=== PATIENT | male | born 1965 | race Caucasian/White ===

== ENCOUNTER → 2017-01-14 | Outpatient (CLI) | payer OTHER ==
[~2017-01-14] MED LIST: AMOX875T PO; BENZ100C84 PO; BUPR-267 PO; CLC100 PO; CMPS25 PR; FEXO1TAB46 PO; FEXO1TAB49 PO; LANS30CA12 PO; LEVO50TA6 PO; MONT1TAB3 PO; MULT-506 PO; ONDA8TAB6 PO; OXYC-57 PO; POTA-65 PO; TRAM-10 PO; TRIA37.5 PO; TRIATAB3 PO; WLLSR150 PO
--- NOTE | 2017-01-14 08:51 | DIAGNOSTIC IMAGING REPORT ---
CT SCAN OF THE CHEST WITHOUT IV CONTRAST CLINICAL HISTORY: Follow-up pulmonary nodule. COMPARISON STUDY: Chest CT dated 05/14/2016. PET/CT dated 06/04/2016. TECHNIQUE: CT scan of the thorax was performed from the thoracic inlet to the upper abdomen. Images are reviewed in the axial, sagittal, and coronal planes. IV contrast was not administered for this examination as per the referring clinician. CT DOSE: 1009.97 mGy.cm FINDINGS: Thyroid: Imaged portions of the thyroid gland are normal in size and attenuation. Thoracic aorta: The thoracic aorta is normal in caliber and demonstrates standard 3-vessel arch anatomy. Heart: The heart is normal in size and without pericardial effusion. Lungs and pleural spaces: Trace pleural effusions are identified. There is no airspace consolidation typical for pneumonia. The trachea and central airways are clear. Foci of linear atelectasis versus scarring are again seen at the lung bases. An irregular 12 mm nodule is seen in the right lower lobe on image #226. This has increased in size from 05/14/2016 when it measured up to 8mm. An additional 12 mm nodule in the right lower lobe seen on image #211 has also increased in size, previously measuring 7 mm. Mediastinum: There are prominent mediastinal lymph nodes. A high right peritracheal node on image #47 measures 9 mm short axis. A pretracheal node on image #114 measures 12 mm in short axis. These are unchanged from previous and low suspicion. Scarlett: Not well assessed without IV contrast. Axillae: There is no axillary lymphadenopathy. Upper abdomen: There is a small hiatal hernia. A 3.6 cm indeterminant low-attenuation lesion in the right lobe of the liver on image #279 is unchanged. A 9 mm cyst is noted in the right lobe of liver. Cholecystectomy clips are noted. A 3.5 cm left renal cyst is partially imaged. Skeletal structures: No lytic or blastic bony lesions are seen. IMPRESSION: 1. There are two 12 mm right lower lobe pulmonary nodules. Although pathologically indeterminant, both nodules have noticeably increased in size as compared to studies performed in 2016. The increase in size of these nodules is concerning for neoplasm 2. There are trace pleural effusions. No airspace consolidation is seen typical for pneumonia. 3. An indeterminant 3.6 cm hepatic lesion is unchanged. Electronically signed by: Paramjit Augustine M.D. 01/14/2017 8:50 AM Dictated Date/Time: 01/14/2017 8:35 AM
== END | disposition home or self-care (01) ==
LOC: C.CTS 08:14
PROVIDERS: ATTEND Internal Medicine Pulmonary Disease
DX: R91.8 Other nonspecific abnormal finding of lung field (principal); J90 Pleural effusion, not elsewhere classified; K76.9 Liver disease, unspecified

== ENCOUNTER 2017-01-19 09:04 | Inpatient (IN) | payer OTHER ==
[2017-01-16 10:22] LABS: BASO % 0.2 %; BASO ABS # 0.01 K/uL (0-0.2); COMPLETE YES; EOS % 0.9 %; HEMATOCRIT 47.6 % (42-52); IG% 0.2 %; LYMPH % 13.8 %; LYMPH ABS # 0.79 K/uL (1.2-3.4); MEAN CELL VOLUME 86.7 fL (80-100); MEAN CORPUSCULAR HEMOGLOBIN 31.3 pg (25-34); MEAN CORPUSCULAR HGB CONC 36.1 g/dl (32-36); MEAN PLATELET VOLUME 10.1 fL (7.4-10.4); MONO % 9.4 %; NEUT % 75.5 %; PLATELET COUNT 195 K/uL (130-400); RED BLOOD COUNT 5.49 M/uL (4.7-6.1); WHITE BLOOD COUNT 5.72 K/uL (4.8-10.8)
[2017-01-16 10:25] VITALS: BMI 36.0
[2017-01-16 10:30] LABS: BLOOD UREA NITROGEN 13 mg/dl (7-18); BUN/CREATININE RATIO 13.5 (10-20); CALCIUM 9.2 mg/dl (8.5-10.1); CARBON DIOXIDE 25 mmol/L (21-32); CHLORIDE 104 mmol/L (98-107); CREATININE 0.93 mg/dl (0.60-1.40); GLUCOSE 92 mg/dl (70-99); SODIUM 136 mmol/L (136-145)
[2017-01-19] VITALS (7 sets, daily range): BP systolic 113–137; BP diastolic 71–93; PULSE 77–107; TEMP 36.2–37; O2SAT 93–97; Ht 182.9 cm; Wt 120.0 kg
[~2017-01-19] VITALS: Ht 182.9 cm; Wt 120.0 kg
[~2017-01-19 09:04] MED LIST changes: -AMOX875T PO; -BENZ100C84 PO; -BUPR-267 PO; -CLC100 PO; -CMPS25 PR; -FEXO1TAB49 PO; +LACTATED RINGER'S 1000ML 1,000 ML IV SCH; -LANS30CA12 PO; -LEVO50TA6 PO; -MONT1TAB3 PO; -MULT-506 PO; -ONDA8TAB6 PO; -OXYC-57 PO; -POTA-65 PO; -TRAM-10 PO; -TRIA37.5 PO
[2017-01-19] MEDS ORDERED: MIDAZOLAM HCL 1 MG/ML 2ML VIAL ONE (09:57)
[2017-01-19] MEDS ORDERED: FENTANYL CITRATE INJ 50 MCG/1 ML 2 ML VIAL ONE ×2 (09:57→12:18)
--- NOTE | 2017-01-19 11:06 | History & Physical Bridge Note ---
H&P Re-Evaluation Bridge Note: I have examined the patient, reviewed the History & Physical and in the interval since the performance of the History & Physical I have noted the following changes of clinical significance: No changes noted
[2017-01-19] MEDS ORDERED: CEFAZOLIN IV 2,000 MG/60 ML D5W IV ONE (11:09)
[2017-01-19] MEDS ORDERED: NURSING VERBAL MED ORDER ONE ×2 (11:15→20:30)
[2017-01-19] MEDS ORDERED: BUPIVACAINE LIPOSOME 1/3% 266 MG/20 ML VIAL INFIL ONE (11:21)
[2017-01-19] MEDS ORDERED: SODIUM CHLORIDE 0.9% PF 50 ML VIAL ONE (11:21)
[2017-01-19] MEDS ORDERED: ROCURONIUM BROMIDE 10 MG/ML 5 ML VIAL ONE ×3 (12:17→15:24)
[2017-01-19] MEDS ORDERED: SUCCINYLCHOLINE CHLORIDE 20 MG/ML 10 ML VIAL IV ONE (12:17)
[2017-01-19] MEDS ORDERED: PHENYLEPHRINE HCL INJ 10 MG/ML VIAL ONE (12:17)
[2017-01-19] MEDS ORDERED: ONDANSETRON INJ 2 MG/ML 2 ML VIAL ONE (12:17)
[2017-01-19] MEDS ORDERED: NEOSTIGMINE METHYLSULFATE 5 MG/5 ML SYR ONE (12:17)
[2017-01-19] MEDS ORDERED: PROPOFOL IV EMULSION 10 MG/ML 20 ML VIAL IV ONE (12:17)
[2017-01-19] MEDS ORDERED: DEXAMETHASONE SOD INJ 4 MG/ML VIAL ONE (12:17)
[2017-01-19] MEDS ORDERED: LIDOCAINE HCL 2% 2 ML VIAL (20MG/ML) ONE (12:17)
[2017-01-19] MEDS ORDERED: LARYING-O-JET KIT (LTA) EXT ONE ×2 (12:17)
[2017-01-19] MEDS ORDERED: GLYCOPYRROLATE INJ 0.2 MG/ML VIAL ONE (12:17)
[2017-01-19] MEDS ORDERED: HYDROmorphone INJ 2 MG/ML SYR/VIAL ONE (13:30)
[2017-01-19] MEDS ORDERED: EpHEDrine SULFATE INJ 50 MG/ML AMP IV PRN (14:15)
[2017-01-19] MEDS ORDERED: ATROPINE SULFATE 0.1 MG/ML 5ML SYR IV PRN (14:15)
[2017-01-19] MEDS ORDERED: ONDANSETRON INJ 2 MG/ML 2 ML VIAL IV PRN ×2 (14:15→17:00)
--- NOTE | 2017-01-19 14:15 | Progress Note ---
Progress Note Date of Service Jan 19, 2017. Progress Note AIRWAY NOTE: Patient was difficult to intubate with SHRAVAN. Easy mask ventilation with oral airway. Initial attempt with MAC4 = grade 3 view. acid pump operator attempted with MIL3=Grade 2b view, but unable to pass SHRAVAN. [place] scope was used which allowed visualization of the glottis and a fiberoptic scope was placed under indirect visualization on GS screen. SHRAVAN was then placed and positioned over fiberoptic scope. 10mg of IV decadron was given after this to minimize upper airway swelling. There was minimal blood in the pharynx after these attempts. Update: Dr Lewis Robles briefed on airway difficulties when transferring care of patient in OR.
[2017-01-19] MEDS: FENTANYL CITRATE INJ 50 MCG/1 ML 2 ML VIAL IV PRN ×4 (17:17→17:32)
--- NOTE | 2017-01-19 17:33 | DIAGNOSTIC IMAGING REPORT ---
CHEST ONE VIEW PORTABLE CLINICAL HISTORY: s/p RLL postoperative evaluation COMPARISON STUDY: 06/13/2016 FINDINGS: Postoperative changes right hemithorax. Right-sided chest tube in good position. No significant postprocedural pneumothorax. Left lung is generally clear. Minimal basilar atelectatic change. IMPRESSION: No evidence pneumothorax status post right-sided chest tube placement Electronically signed by: Shivam Pinedo M.D. 01/19/2017 5:31 PM Dictated Date/Time: 01/19/2017 5:29 PM
[2017-01-19] MEDS: HYDROmorphone INJ 1 MG/ML SYR IV PRN ×3 (17:37→17:52)
--- NOTE | 2017-01-19 17:53 | Anesthesiology Progress Note ---
Anesthesia Post Op Note Date & Time Jan 19, 2017 at 17:53 Vital Signs Pain Intensity: 3 Vital Signs Past 12 Hours Date Time Temp Pulse Resp B/P Pulse Ox O2 Delivery O2 Flow Rate FiO2 01/19/17 17:40 68 14 124/65 98 Mask 10 01/19/17 17:30 79 14 123/68 99 Mask 10 01/19/17 17:20 79 17 114/75 100 Mask 10 01/19/17 17:13 36.0 66 21 114/66 100 Mask 10 01/19/17 09:40 36.9 90 20 137/93 94 Room Air Notes Mental Status: alert / awake / arousable, participated in evaluation Pt Amnestic to Procedure: Yes Nausea / Vomiting: adequately controlled Pain: adequately controlled Airway Patency, RR, SpO2: stable & adequate BP & HR: stable & adequate Hydration State: stable & adequate Anesthetic Complications: no major complications apparent
[2017-01-19] MEDS: OXYCODONE HCL IR 5 MG TAB (IMMEDIATE RELEASE) PO PRN (19:02)
[2017-01-19] MEDS ORDERED: CEFAZOLIN IV 2,000 MG in DEXTROSE 5% 50ML 100 ML IV SCH (20:30)
[2017-01-19] MEDS: D5W AND 1/2NSS 1,000 ML IV SCH (20:48)
[2017-01-19] MEDS: MoRPHine SULFATE 2 MG/ML CARP IV PRN ×2 (20:53→22:16)
[2017-01-19] MEDS: CEFAZOLIN IV 2,000 MG in DEXTROSE 5% 50ML 50 ML IV SCH (20:59)
[2017-01-19] MEDS ORDERED: LANSOPRAZOLE PO SCH (21:00)
[2017-01-19] MEDS ORDERED: METOCLOPRAMIDE HCL INJ 5 MG/ML 2 ML VIAL IV. SCH (22:00)
[2017-01-19] MEDS: BuPROPion SR 150 MG TABCR PO SCH (22:03)
[2017-01-19] MEDS: DOCUSATE SODIUM 100 MG CAP PO SCH (22:03)
[2017-01-19] MEDS: KETOROLAC TROMETHAMINE 15 MG/ML VIAL IV. SCH (22:04)
[2017-01-19] MEDS: ACETAMINOPHEN IV 1,000 MG in EMPTY BAG 0 ML IV SCH (22:05)
[2017-01-19 22:07] LABS: INR 1.1 (0.9-1.1); PROTHROMBIN TIME (PATIENT) 11.5 SECONDS (9.0-12.0)
[2017-01-19] MEDS: LANSOPRAZOLE PO SCH (22:12)
[2017-01-20] MEDS: MoRPHine SULFATE 2 MG/ML CARP IV PRN ×6 (00:40→22:40)
[2017-01-20] MEDS: D5W AND 1/2NSS 1,000 ML IV SCH (02:50)
--- NOTE | 2017-01-20 02:54 | OPERATIVE REPORT ---
DATE OF OPERATION: 01/19/2017 PREOPERATIVE DIAGNOSIS: Enlarging mass, right lower lobe. POSTOPERATIVE DIAGNOSIS: Apparent metastatic lesion. PROCEDURES: 1. Right thoracoscopy with wedge resection. 2. Thoracoscopic right lower lobectomy. 3. Mediastinal lymphadenectomy. SURGEON: Dr. Syed. TEAM LEADER/RESEARCH PSYCHOLOGIST: JASPER Sarmiento ANESTHESIA: 1. General anesthesia endotracheal intubation. 2. Intercostal block using Exparel intrathoracic needle. SPECIFICS OF PROCEDURE: Al Ferrer is a very nice 51-year-old who has never smoked cigarettes. He really does not have much in the way of medical problems. He was found to have signs and symptoms consistent with an upper respiratory infection and hypermetabolic lymph nodes several months ago. I performed an endobronchial ultrasound and these nodes were all reactive. We saw no evidence of malignancy or granulomatous disease. He has had 2 small nodules in his right lower lobe but I really was not too concerned. I asked him to come back in 6 months and to get a CT scan, and one of these nodules had enlarged. In fact it was 50% larger which was very concerning for me. The patient has no symptoms. On 01/19/2017 I took the patient to the operating room and did a wedge resection of this mass and it appears to be metastatic carcinoma. He had another mass more medially in the lower lobe which I could not palpate and as we were unsure of the diagnosis, I went ahead and did a thoracoscopic right lower lobectomy, although it did not appear to be a lung cancer. He also had very large lymph nodes which surprised me, even though it appeared to be enlarged on the CT scan. At any rate I took out a large mass in the level 2 and level 4 nodes as well as level 8, 9, 11, 12. Frozen section of these showed granulomas. The patient tolerated the procedure well and was transported back to the post-anesthesia care unit in stable condition. DESCRIPTION OF PROCEDURE: The patient brought to the operating room laid in supine position. General anesthesia induced and endotracheal intubation was performed. After appropriate lines and catheters in place, the patient was turned in the left lateral decubitus position, his right chest prepped, draped in the usual sterile fashion. After appropriate timeout had been called and the antibiotics had been given, I then made a bit posterior to the scapular tip one interspace below. I then made 2 other small thoracoscopy incisions and put #12 thoracoports in. I then put my finger in the posterior port and bringing this over I was able to palpate this mass which was more than a centimeter in depth. I then marked it with ink and then wedged this out with a generous wedge. I cut this open, and sent some for culture and it was a darkly pigmented lesion which was rather firm. Sent this off for frozen section and while waiting for this, took down the inferior pulmonary ligament and biopsied level 8 and level 9 nodes. They were hard and I sent this for frozen section to and a level 9 node had granulomas, which was a bit surprising. Freed up the inferior pulmonary ligament and went all the way up to the level 7 although did not really see much in the level 7 area. I then went down and dissected out the medial fissure and the right lower lobe and the right middle lobe. I then got around the inferior pulmonary vein after checking to make sure there was a superior pulmonary vein. Upon evaluation; however, there was a branch draining from the middle lobe to the inferior pulmonary vein. I removed my vessel loop and then I went back more distal to this and put a vessel loop around. Frozen section came back as a carcinoma. Deliberated for a few minutes because it could represent a melanoma. However, there was another nodule more medial on the CT scan which concerned me. I did not think this had grown much and if the mass appeared benign I would have simply followed this; however, given the fact that we saw no other evidence of metastatic disease, I felt that a lobectomy to control metastasis was in order, especially given the fact that we have no diagnosis. I then fired the stapler across the vein and pulling this up, I identified the bronchus. I went to dissect out the bronchus from the artery; however, this was extremely difficult. The nodes were extremely adherent to large. I ended up gently and meticulously dissecting out some large node and sending them off for frozen section they were like granulomas. I was finally able to get around the artery and fired an EndoGIA stapler. I did the same thing for the bronchus. I completed the fissure posteriorly with an EndoGIA stapler. An Endobag was used to remove it from the lobe. I had to enlarge the working channel of the 4th interspace a bit to do this. It should also be noted that I used an Endobag to remove the wedge resection that we had obtained, also. I used 266 mg of Exparel and 60 mL total saline to do the intercostal block from the 2nd to the 11th rib. We then dissected out level 11 and 12 nodes and then a huge mat of nodes at level 4, level 2 areas which came out as one. We irrigated this and found he really had no significant bleeding and no significant air leak. A 24-Haitian chest tube was placed to the anterior thoracoport, sutured in place with heavy silk suture. 0 Vicryl was used to close the muscle layers level 3 ports and then 4-0 Monocryl was used in an interrupted fashion to approximate the wound edges. He was extubated in the room and had negligible blood loss. I attest to the content of the Intraoperative Record and any orders documented therein. Any exceptions are noted below. AMELIA
[2017-01-20 04:30] VITALS: BP 133/85; PULSE 81; TEMP 36.9; O2SAT 96
[2017-01-20] MEDS: CEFAZOLIN IV 2,000 MG in DEXTROSE 5% 50ML 50 ML IV SCH (04:32)
[2017-01-20] MEDS: OXYCODONE HCL IR 5 MG TAB (IMMEDIATE RELEASE) PO PRN ×3 (04:36→20:58)
[2017-01-20] MEDS: ACETAMINOPHEN IV 1,000 MG in EMPTY BAG 0 ML IV SCH (05:42)
[2017-01-20] MEDS: LEVOTHYROXINE 50 MCG TAB PO SCH (05:42)
[2017-01-20] MEDS: KETOROLAC TROMETHAMINE 15 MG/ML VIAL IV. SCH ×3 (05:42→21:12)
[2017-01-20 07:26] VITALS: BP 123/84; PULSE 78; TEMP 36.4; O2SAT 96
[2017-01-20 07:52] LABS: COMPLETE YES; EOS % 0.1 %; HEMATOCRIT 41.6 % (42-52); IG% 0.3 %; LYMPH % 6.9 %; LYMPH ABS # 0.74 K/uL (1.2-3.4); MEAN CORPUSCULAR HEMOGLOBIN 30.5 pg (25-34); MEAN CORPUSCULAR HGB CONC 35.1 g/dl (32-36); MEAN PLATELET VOLUME 9.7 fL (7.4-10.4); MONO % 6.6 %; NEUT % 86.1 %; PLATELET COUNT 167 K/uL (130-400); RED BLOOD COUNT 4.78 M/uL (4.7-6.1); WHITE BLOOD COUNT 10.71 K/uL (4.8-10.8)
[2017-01-20 08:19] LABS: BUN/CREATININE RATIO 15.9 (10-20); CALCIUM 8.6 mg/dl (8.5-10.1); CREATININE 0.93 mg/dl (0.60-1.40); POTASSIUM 3.7 mmol/L (3.5-5.1)
[2017-01-20] MEDS: DOCUSATE SODIUM 100 MG CAP PO SCH ×2 (08:43→21:09)
[2017-01-20] MEDS: FEXOFENADINE HCL 180 MG TAB PO SCH (08:43)
[2017-01-20] MEDS: LANSOPRAZOLE PO SCH ×2 (08:44→21:00)
[2017-01-20] MEDS: BuPROPion SR 150 MG TABCR PO SCH ×2 (10:17→21:10)
[2017-01-20] MEDS: ENOXAPARIN 40 MG/0.4 ML SYR SQ SCH (10:18)
--- NOTE | 2017-01-20 10:44 | Anesthesiology Progress Note ---
Anesthesia Post Op Note Date & Time Jan 20, 2017 at 10:44 Vital Signs Pain Intensity: 6.0 Vital Signs Past 12 Hours Date Time Temp Pulse Resp B/P Pulse Ox O2 Delivery O2 Flow Rate FiO2 01/20/17 07:26 36.4 78 17 123/84 96 Room Air 01/20/17 04:30 36.9 81 16 133/85 96 Room Air 01/20/17 00:25 CPAP 01/19/17 23:05 37.0 98 16 113/71 94 Room Air Notes Mental Status: alert / awake / arousable, participated in evaluation Pt Amnestic to Procedure: Yes Nausea / Vomiting: adequately controlled Pain: adequately controlled Airway Patency, RR, SpO2: stable & adequate BP & HR: stable & adequate Hydration State: stable & adequate Anesthetic Complications: no major complications apparent
[2017-01-20] MEDS: ACETAMINOPHEN 325 MG TAB PO SCH ×3 (11:17→23:49)
[2017-01-20 11:20] VITALS: BP 143/90; PULSE 79; TEMP 36.5; O2SAT 96
--- NOTE | 2017-01-20 12:17 | SURGERY PROGRESS NOTE ---
DATE: 01/20/2017 Mr. Ferrer is sitting up eating breakfast in a chair. He is on no oxygen. He has no air leak today and very little drainage. We are going to check a chest x-ray in the morning. If it looks good, we will pull his chest tube and let him go home. The big picture here is the patient had 2 findings yesterday at surgery. One was the mass in his right lower lobe, appears to be melanoma. Also all the large lymph nodes noted appear to be from granulomatous disease. We are still waiting for final pathology. I explained quite carefully the patient and his family that he would probably be discharged prior to us having a diagnosis. We will talk about it next week in the office.
[2017-01-20 15:30] VITALS: BP 143/90; PULSE 85; TEMP 36.4; O2SAT 94
[2017-01-20 16:00] VITALS: O2SAT 94
[2017-01-20 22:33] VITALS: BP 117/79; PULSE 86; TEMP 36.9; O2SAT 92
[2017-01-21] MEDS: OXYCODONE HCL IR 5 MG TAB (IMMEDIATE RELEASE) PO PRN ×2 (02:59→09:13)
[2017-01-21] MEDS: LEVOTHYROXINE 50 MCG TAB PO SCH (05:39)
[2017-01-21] MEDS: ACETAMINOPHEN 325 MG TAB PO SCH (05:40)
[2017-01-21] MEDS: KETOROLAC TROMETHAMINE 15 MG/ML VIAL IV. SCH (05:47)
[2017-01-21] MEDS: LANSOPRAZOLE PO SCH (05:48)
[2017-01-21 07:12] VITALS: BP 136/83; PULSE 82; TEMP 36.9; O2SAT 95
--- NOTE | 2017-01-21 07:37 | DIAGNOSTIC IMAGING REPORT ---
CHEST ONE VIEW PORTABLE CLINICAL HISTORY: Postop lobectomy COMPARISON STUDY: January 19, 2017 FINDINGS: The cardiac and mediastinal contours remain stable. There are bibasilar opacities likely atelectatic. There is a right-sided chest tube the tip of which projects over the right mid mediastinum. A small right apical pneumothorax the pleural separation of 6 mm is suspected.[ IMPRESSION: 1. Small right apical pneumothorax with a pleural separation of 6 mm 2. Bibasilar opacities, likely atelectatic Electronically signed by: Andrew Dudley M.D. 01/21/2017 7:35 AM Dictated Date/Time: 01/21/2017 7:34 AM
[2017-01-21] MEDS ORDERED: CLC100 PO (08:58)
--- NOTE | 2017-01-21 09:05 | Discharge Instructions ---
Discharge Instructions Date of Service Jan 21, 2017. Admission Reason for Admission: Right Lower Lobe Lung Mass Discharge Discharge Diagnosis / Problem: Right Lower Lobe Lung Mass Discharge Goals Goal(s): Learn about illness Activity Recommendations Activity Limitations: as noted below Lifting Limitations: none 1. Do not fly or SCUBA dive until cleared to do so by Dr. Syed. 2. You may remove dressings in 3 days and shower thereafter. NO tub baths. 3. Do not drive if taking percocet. . Instructions / Follow-Up Instructions / Follow-Up 1. Office appointment with Dr. Syed in 1-2 weeks. Office will call you with date and time of appointment. You will need a chest x-ray prior to appointment. 2. You will have a follow-up appointment with Dr. Amaral of oncology. You will receive a phone call regarding this appointment. 3. You will need referrals to gastroenterology, ophthalmology, and dermatology. Dr. Syed's office will assist you in making these appointments. 4. You will need a PET scan. Dr. Syed's office will arrange this for you. Current Hospital Diet Patient's current hospital diet: Regular Diet Discharge Diet Recommended Diet: Regular Diet Procedures Procedures Performed: Right Video Assisted Thoracoscopy Lower Wedge Resection, Right Lower Lobectomy with Mediastinal Lymphadenectomy Pending Studies Studies pending at discharge: no Medical Emergencies . Who to Call and When: Medical Emergencies: If at any time you feel your situation is an emergency, please call 911 immediately. . Non-Emergent Contact Non-Emergency issues call your: Surgeon Call Non-Emergent contact if: you have a fever, your pain is not controlled, wound has increased drainage . "Provider Documentation" section prepared by Tyler Calixto. VTE Core Measure Inpt VTE Proph given/why not?: Enoxaparin (Lovenox)SQ
[2017-01-21] MEDS ORDERED: OXYC-57 PO (09:09)
--- NOTE | 2017-01-21 09:16 | DIAGNOSTIC IMAGING REPORT ---
CHEST ONE VIEW PORTABLE CLINICAL HISTORY: Chest tube removal. COMPARISON STUDY: Chest radiograph January 21, 2017 at 7:34 AM. FINDINGS: A small right apical pneumothorax has mildly increased in size since prior exam. Superior pleural separation measures 1.3 cm. The right chest tube has been removed. Lung zones are diminished. Bibasilar opacity persist. IMPRESSION: 1. Small right apical pneumothorax, mildly increased in size following chest tube removal. 2. Diminished lung volumes with bibasilar opacities. Electronically signed by: Delvis Stoddard M.D. 01/21/2017 9:15 AM Dictated Date/Time: 01/21/2017 9:13 AM
--- NOTE | 2017-01-21 09:23 | DISCHARGE SUMMARY ---
DATE OF DISCHARGE: 01/21/2017. DISCHARGE DIAGNOSES: 1. Metastatic melanoma to the right lower lobe. 2. Sarcoidosis. 3. Hypertension. 4. Hypercholesterolemia. HOSPITAL COURSE: This is a 51-year-old male who has never smoked cigarettes is found to have hypermetabolic mediastinal adenopathy last summer with a small right lower lobe nodule. I took the patient to the operating room and did endobronchial ultrasound and biopsied these lymph nodes. These appeared to be reactive. He improved clinically and I saw him back in followup. This small nodule in his right lower lobe was not hypermetabolic on his PET scan. When I saw him back in the office last week this nodule increased in size. I told him we should go ahead and do a wedge resection with frozen section and lobectomy should it prove to be malignant. On 01/19/2017 the patient was brought to the operating room and underwent uncomplicated right thoracoscopy with wedge resection of this mass. Frozen section showed this to be a carcinoma; however, it appeared to be consistent with melanoma. The patient had a second nodule in his lung and I was concerned about it as it was central. He also had very large lymph nodes. I elected to do an uncomplicated thoracoscopic right lower lobectomy and mediastinal lymphadenectomy. It turns out that he does indeed have metastatic melanoma; however, he also has sarcoidosis. He tolerated the procedure very well with very little in the way of blood loss. He was watched on the floor and was on room air soon after surgery. On postop day 2, less than 48 hours after surgery we removed his chest tube. Chest x-ray looked quite good after we pulled it. He was discharged home. His incisions look good. His saturation was 95% on room air and he was ambulating in the hallway. Dr. Héctor Amaral saw the patient and plans were made for his further diagnostic workup prior to treating this melanoma. On exam, I did not see evidence of a primary; however, we will have an ophthalmologic as well as gastroenterology and dermatology workup. I will see him back in the office next week with an x-ray.
[2017-01-21] MEDS: FEXOFENADINE HCL 180 MG TAB PO SCH (09:32)
[2017-01-21] MEDS: DOCUSATE SODIUM 100 MG CAP PO SCH (09:33)
[2017-01-21] MEDS: BuPROPion SR 150 MG TABCR PO SCH (09:33)
[2017-01-21] MEDS: ENOXAPARIN 40 MG/0.4 ML SYR SQ SCH (09:34)
--- NOTE | 2017-01-21 09:56 | ONCOLOGY CONSULTATION ---
DATE OF CONSULTATION: 01/20/2017 REASON FOR CONSULTATION: Right lower lobe mass, probable malignant melanoma. HISTORY OF PRESENT ILLNESS: Mr. Ferrer is a very pleasant 51-year-old gentleman who was admitted on 01/19/2017 under the care of Dr. Wiliam Syed to undergo right thoracoscopy with wedge resection of a remotely diagnosed right lower lobe mass. The patient's medical history begins about a year ago when he was hospitalized for pancreatitis. During workup, radiographs done at that time revealed a small pulmonary nodule. He was seen in consultation by both Dr. Syed and the pulmonary service. Collectively they recommended observational approach and the patient continued to be followed radiographically. Later this past summer, specifically 06/13/2016, underwent FNA of pulmonary regional lymph nodes which revealed no evidence of malignancy or granulomas. After biopsy, he was recommended to return to Dr. Syed's office after undergoing serial CT scan. CT scan prior to his December appointment did confirm the presence of an enlarging right lower lobe mass that Dr. Syed describes 50% larger. On 01/19/2017, he was then taken to the operating room and wedge resection was performed. Frozen section was positive for a suspected melanoma. Dr. Syed spoke to me this morning and diagnosis is now confirmed to be metastatic malignant melanoma. Clinically, Mr. Ferrer is an otherwise healthy individual; however, he does report, because of psychosocial stressors, he gained about 50 pounds over the past year or so. He otherwise has no significant medical problems. PAST MEDICAL HISTORY: Hypothyroidism and depression. PAST SURGICAL HISTORY: Unremarkable. MEDICATIONS: Yesenia 180 mg p.o. q.a.m., enoxaparin 40 mg subcu daily, levothyroxine 50 mg p.o. daily, ketorolac 15 mg IV q. 8 hours, bupropion 150 mg p.o. b.i.d., docusate sodium 100 mg p.o. b.i.d., oxycodone 5 mg q. 6 hours p.r.n. for pain, Zofran 4 mg p.r.n. IV for nausea and vomiting, and morphine 2 mg q. 1 hour p.r.n. for pain. ALLERGIES: No known drug allergies. SOCIAL HISTORY: The patient is , nonsmoker, nondrinker. FAMILY HISTORY: Noncontributory. REVIEW OF SYSTEMS: Negative for fevers, chills or night sweats. No anorexia or weight loss. In fact, he claims he has gained 50 pounds over the past year or so. SKIN: No rashes or lesions. No history of melanoma or dermatosis otherwise. HEENT: Negative for headaches, lightheadedness or dizziness. No visual or hearing deficits. No sinus symptoms, sore throat or dysphagia. LYMPH: No history of lymphadenopathy. CARDIAC: Negative for coronary artery disease. No current angina or palpitations. PULMONARY: He is not short of breath, dyspneic or orthopneic. No cough or hemoptysis. Chest tube in place. GASTROINTESTINAL: Negative for abdominal pain, nausea or vomiting, diarrhea or constipation, hematochezia or melenic stools. GENITOURINARY: No hematuria, dysuria, urinary incontinence. No history of prostate cancer. ENDOCRINE: Positive for hypothyroidism. MUSCULOSKELETAL: No arthralgias or myalgias. No muscle weakness. NEUROLOGIC: Negative for seizure, stroke or migraine headache. HEMATOLOGIC: Negative for anemia, thrombophilia or bleeding diathesis. PHYSICAL EXAMINATION: GENERAL: Very pleasant, well-developed and moderately obese 51-year-old gentleman in no acute distress. VITAL SIGNS: Temperature 36.9, pulse 82, respirations 16, blood pressure 136/83. SKIN: Warm, dry, noncyanotic. No petechiae, rash or ecchymosis. HEENT: Head: Atraumatic, normocephalic. Eyes: PERRLA, EOMI. Sclerae nonicteric. No conjunctival injection. Nares are patent without rhinorrhea or discharge. Throat clear. Tongue midline. Mucous membranes moist. NECK: Supple without JVD or thyromegaly. LYMPH: No cervical, supraclavicular or axillary palpable nodes. HEART: Regular rate and rhythm. No clicks, rubs, murmurs or gallops. LUNGS: Clear to auscultation bilaterally. ABDOMEN: Soft, nontender, nondistended, without palpable hepatosplenomegaly. EXTREMITIES: No calf tenderness or swelling. No clubbing, cyanosis or edema. NEUROLOGIC: He is awake, alert and oriented x3. Cranial nerves II-XII are intact. No gross motor or sensory deficits are noted. RADIOGRAPHIC DATA: Chest x-ray done today reveals a small right apical pneumothorax. LABORATORY DATA: WBC count 10,700, hemoglobin 14.6, platelet count 167,000. Sodium 134, potassium 3.7, chloride 100, carbon dioxide 26, BUN 15, creatinine 0.93. IMPRESSION: 1. Metastatic malignant melanoma, right lower lung. 2. Status post wedge resection. PLAN: I had the pleasure of meeting Mr. Ferrer at bedside today. His physical exam was otherwise unremarkable. The patient was discovered with small right lower lobe pulmonary nodule last summer after suffering from pancreatitis. Appropriately, he was followed by both thoracic surgery and pulmonary services and underwent serial radiographs subsequently. In mid May of 2016, underwent biopsy of pulmonary regional lymph nodes which were negative for both granulomas and cancer. However, upon repeat CAT scan 6 months later, the lesion in question doubled in size, prompting Dr. Syed to have him admitted for wedge resection. Post-procedural pathology is suggestive of malignant melanoma, now believed to be confirmed. We will proceed with BRAF testing of the said lesion. We will review current NCCN guidelines for therapeutic options. Perhaps outpatient PET scan should be performed for staging purposes. I also agree with Dr. Syed, he should be examined by manager [employer] and undergo a screening colonoscopy. We will arrange for outpatient followup to discuss diagnosis, prognosis and treatment options. Thank you very much for allowing me to participate in his care. If you have any questions or concerns, feel free to call me at any time. AMELIA
[2017-01-21 10:21] VITALS: BP 136/83; PULSE 82; TEMP 36.9; O2SAT 95
[2017-04-25] MEDS ORDERED: LEVO50TA6 PO (10:23)
[2017-04-25] MEDS ORDERED: LANS30CA12 PO (15:52)
[2017-07-29] MEDS ORDERED: MULT-506 PO (05:39)
[2017-07-29] MEDS ORDERED: TRAM-10 PO (08:10)
[2017-07-29] MEDS ORDERED: OXYC-57 PO (08:26)
== END 2017-01-21 10:57 | disposition home or self-care (01) | DRG 165 ==
LOC: ENRESERVDT → ENRESERVTM → C.ACU 09:04 → C.MSN 17:00
PROVIDERS: ADMIT Surgery; ATTEND Surgery
PROC: 0BBF4ZZ Excision of Right Lower Lung Lobe, Percutaneous Endoscopic Approach (ICD-10-PCS; principal; 2017-01-19 11:00)
PROC: 07T74ZZ Resection of Thorax Lymphatic, Percutaneous Endoscopic Approach (ICD-10-PCS; principal; 2017-01-19 11:00)
DX: C78.01 Secondary malignant neoplasm of right lung (principal); I10 Essential (primary) hypertension; D86.9 Sarcoidosis, unspecified; E78.00 Pure hypercholesterolemia, unspecified; E03.9 Hypothyroidism, unspecified; F32.9 Major depressive disorder, single episode, unspecified

== ENCOUNTER → 2017-01-26 | Outpatient (CLI) | payer OTHER ==
[~2017-01-26] MED LIST changes: +AMOX875T PO; +BENZ100C84 PO; +BUPR-267 PO; +CLC100 PO; +CMPS25 PR; +DIPH-416 PO; +DXM/4 PO; +FEXO1TAB49 PO; -LACTATED RINGER'S 1000ML 1,000 ML IV SCH; +LANS30CA12 PO; +LEVO175T3 PO; +LEVO50TA6 PO; +MULT-506 PO; +ONDA8TAB6 PO; +OXYC-57 PO; +OXYC1TAB3 PO; +POTA-65 PO; +SYN150 PO; +TRAM-10 PO; +TRIA37.5 PO
--- NOTE | 2017-01-26 16:57 | DIAGNOSTIC IMAGING REPORT ---
PET/CT WHOLE BODY HISTORY: MELANOMA TECHNIQUE: PET/CT was performed from the skull through the feet following the intravenous administration of 14.5 mCi of F18-FDG. Non-contrast CT imaging was performed over the same range without breath-hold for attenuation correction of PET images and anatomic correlation, but not for primary interpretation as it is not of standard diagnostic quality. CT DOSE: 1078.76 mGycm COMPARISON: PET CT 06/04/2016. FINDINGS: HEAD AND NECK: Symmetric FDG uptake within the brain. No enlarged or FDG avid cervical lymph nodes. CHEST: Non masslike areas of soft tissue density within the right lateral chest wall subcutaneous fat with associated FDG uptake favors postoperative change. Small right pneumothorax persists. Interval resection of the right lower lobe. Small to moderate right pleural effusion. This does not demonstrate significant FDG uptake. FDG avid mediastinal and hilar lymph nodes are again noted. These have slightly decreased in size. A prevascular lymph node measures 1.6 x 0.7 cm, previously measuring 2.1 x 1.0 cm. This lymph node currently demonstrates an SUV max of 5.5, previously demonstrating an SUV max of 5.8. Dominant FDG avid right hilar lymph nodes demonstrates an SUV max of 7.4, previously demonstrating an SUV max of 11. FDG avid lower right paratracheal lymph node has essentially resolved in the interval. There is a new 4 mm nodule within the right upper lobe on image 93. This does not demonstrate abnormal FDG uptake but is likely below the threshold for PET imaging. Left lower lobe basilar consolidation favors atelectasis. ABDOMEN/PELVIS: Below the diaphragm, tracer is distributed physiologically in the gastrointestinal and genitourinary tracts. There is no significant lymphadenopathy and no FDG-avid disease. A 2.6 cm hypodense lesion within the right hepatic lobe is not well visualized due to the streak artifact from the patient's overlapping arms. This appears to have decreased in size. This does not demonstrate abnormal FDG uptake. MUSCULOSKELETAL/lower extremities: Tiny FDG avid focus fusing to the right posterior iliac bone on image 254 demonstrates an SUV max of 2, previously demonstrating an SUV max of 4. No corresponding abnormality by CT. FDG uptake associated with the dorsum of the right foot is likely physiologic. IMPRESSION: 1. Small right pneumothorax persists. The patient status post recent right lower lobectomy. There is a small to moderate right pleural effusion which may be due to postoperative change. 2. Patchy areas of increased density within the subcutaneous fat of the right lateral chest wall demonstrate FDG uptake but have a non masslike appearance and are likely due to residual/resolving postoperative change. 3. Decrease in size and FDG uptake associated with the mediastinal and hilar lymph nodes consistent with improvement in metastatic disease. 4. A new 4 mm nodule within the right upper lobe. This is concerning for metastatic disease. This does not demonstrate FDG uptake at this time but is likely below the threshold for PET imaging. 5. The hypodense lesion within the right hepatic lobe appears to have decreased in size but is difficult to characterize due to the streak artifact from the patient's overlapping arms. This does not demonstrate abnormal FDG uptake. 6. The tiny focus of FDG uptake within the right posterior iliac bone has also improved. No definite corresponding abnormality by CT. Electronically signed by: Boubacar Medley M.D. 01/26/2017 4:56 PM Dictated Date/Time: 01/26/2017 12:00 PM
== END | disposition home or self-care (01) ==
LOC: C.PET 06:42
PROVIDERS: ATTEND Surgery
DX: C43.9 Malignant melanoma of skin, unspecified (principal); C78.00 Secondary malignant neoplasm of unspecified lung

== ENCOUNTER → 2017-01-27 | Outpatient (CLI) | payer OTHER ==
--- NOTE | 2017-01-27 12:22 | DIAGNOSTIC IMAGING REPORT ---
CHEST 2 VIEWS ROUTINE HISTORY: C78.00 Metastatic melanoma to [id number] COMPARISON: Chest 01/21/2017 FINDINGS: Tiny right pneumothorax is decreased in size. The heart is normal in size. Small right pleural effusion persists. Patchy bibasilar densities remain unchanged. IMPRESSION: 1. Tiny right pneumothorax has decreased in size. 2. Small right pleural effusion persists. 3. Patchy bibasilar densities, unchanged. Electronically signed by: Boubacar Medley M.D. 01/27/2017 12:21 PM Dictated Date/Time: 01/27/2017 12:19 PM
== END | disposition home or self-care (01) ==
LOC: C.RAD1850 11:21
PROVIDERS: ATTEND Surgery
DX: C78.00 Secondary malignant neoplasm of unspecified lung (principal)

== ENCOUNTER → 2017-01-27 | Outpatient (CLI) | payer OTHER | END | disposition home or self-care (01) | LOC: C.PATHSPEC 14:08 | PROVIDERS: ATTEND Dermatology | DX: D23.5 Other benign neoplasm of skin of trunk (principal) ==

== ENCOUNTER → 2017-01-29 | Day surgery (SDC) | payer OTHER ==
[2017-01-26 13:07] VITALS: BMI 36.0
[~2017-01-29] VITALS: Ht 182.9 cm; Wt 120.5 kg
[~2017-01-29] MED LIST changes: +LIDOCAINE HCL 2% 2 ML VIAL (20MG/ML) ONE; +MIDAZOLAM HCL 1 MG/ML 2ML VIAL ONE; +PROPOFOL IV EMULSION 10 MG/ML 20 ML VIAL IV ONE; +SODIUM CHLORIDE 0.9% 500ML 500 ML IV ONE
[2017-01-29 13:18] VITALS: Ht 182.9 cm; Wt 120.5 kg
--- NOTE | 2017-01-29 13:59 | Endo History and Physical ---
History & Physical Date of Service: Jan 29, 2017. Chief Complaint: METASTATIC MELYNOMA SECOND TO LUNG Referring Physician: DR ROSS History of Present Illness 51 yo CM who presents for EGD and Colonoscopy secondary to Metastatic melanoma of unknown primary. Past Surgical History Hx Cardiac Surgery: No Hx Internal Defibrillator: No Hx Pacemaker: No Hx Abdominal Surgery: Yes (DESIREE) Hx of Implantable Prosthesis: No Hx Post-Op Nausea and Vomiting: No Hx Cancer Surgery: No Hx Thoracic Surgery: Yes (RT VATS) Hx Orthopedic: No Hx Urinary Tract Surgery: No Family History None Social History Smoking Status: Never Smoker Hx Substance Use: No Hx Alcohol Use: No Allergies Coded Allergies: Prednisone (Verified Allergy, Intermediate, CAN NOT TOLERATE,-GETS VERY ANGRY,FEELS AWFUL, 01/26/17) Current Medications Reported Home Medications Medications Dose Route/Sig Max Daily Dose Days Date Category Percocet 5MG/325MG (Oxycodone/Acetaminophen) Tab 1-2 Tablets PO Q6 PRN 20 01/21/17 Rx Docusate Sodium 100 Mg Cap 100 Mg PO BID 30 01/21/17 Rx Levothyroxine Sodium 50 Mcg Tab 1 Tab PO QAM 90 01/16/17 Reported Triamterene/Hctz 37.5-25MG (Triamterene/HCTZ) 1 Tab Tab 1 Tab PO QAM 04/27/16 Reported Prevacid (Lansoprazole) 30 Mg Capcr 30 Mg PO QAM 04/27/16 Reported Yesenia (Fexofenadine Hcl) 180 Mg Tab 180 Mg PO QAM 04/27/16 Reported Bupropion HCl Sr (Bupropion HCl) 150 Mg Tabcr 150 Mg PO BID 04/27/16 Reported Vital Signs Weight (Kilograms): 120.45 Height (Feet): 6 Height (Inches): 0 Date Time Temp Pulse Resp B/P Pulse Ox O2 Delivery O2 Flow Rate FiO2 01/29/17 13:20 36.8 83 20 162/91 98 Room Air Physical Exam General Appearance: WD/WN, no apparent distress Respiratory/Chest: Auscultation: breath sounds normal Cardiovascular: Heart Auscultation: RRR Abdomen: Bowel Sounds: normal Inspection & Palpation: soft, non-distended, no tenderness, guarding & rebound Assessment and Plan Assessment: 51 yo CM who presents for EGD and Colonoscopy secondary to Metastatic melanoma of unknown primary. Plan: Proceed with EGD and colonoscopy.
--- NOTE | 2017-01-29 14:46 | GI REPORT ---
Procedure Date: 01/29/2017 1:35 PM Procedure: Colonoscopy Indications: Metastatic melanoma of unknown primary Medicines: Monitored Anesthesia Care Complications: No immediate complications. Estimated Blood Loss: Estimated blood loss: none. Procedure: Pre-Anesthesia Assessment: - Prior to the procedure, a History and Physical was performed, and patient medications and allergies were reviewed. The patient's tolerance of previous anesthesia was also reviewed. The risks and benefits of the procedure and the sedation options and risks were discussed with the patient. All questions were answered, and informed consent was obtained. Prior Anticoagulants: The patient has taken no previous anticoagulant or antiplatelet agents. ASA Grade Assessment: II - A patient with mild systemic disease. After reviewing the risks and benefits, the patient was deemed in satisfactory condition to undergo the procedure. After I obtained informed consent, the scope was passed under direct vision. Throughout the procedure, the patient's blood pressure, pulse, and oxygen saturations were monitored continuously. The scope was introduced through the anus and advanced to the cecum, identified by appendiceal orifice and ileocecal valve. The colonoscopy was performed without difficulty. The patient tolerated the procedure well. The quality of the bowel preparation was good. The ileocecal valve, appendiceal orifice, and rectum were photographed. Findings: The entire examined colon appeared normal. The perianal exam findings include hypertrophied anal papilla(e). Impression: - The entire examined colon is normal. - Hypertrophied anal papilla(e) found on perianal exam. - No specimens collected. Recommendation: - Resume previous diet. - Continue present medications. - Repeat colonoscopy in 10 years for surveillance. - Return to primary care physician as previously scheduled. Jimmy Calderon DO 01/29/2017 2:46:01 PM This report has been signed electronically. Note Initiated On: 01/29/2017 1:35 PM I attest to the content of the Intraoperative Record and orders documented therein, exceptions below
--- NOTE | 2017-01-29 14:49 | GI REPORT ---
Procedure Date: 01/29/2017 1:55 PM Procedure: Upper GI endoscopy Indications: Metastatic melanoma of unknown primary Medicines: Monitored Anesthesia Care Complications: No immediate complications. Estimated Blood Loss: Estimated blood loss: none. Procedure: Pre-Anesthesia Assessment: - Prior to the procedure, a History and Physical was performed, and patient medications and allergies were reviewed. The patient's tolerance of previous anesthesia was also reviewed. The risks and benefits of the procedure and the sedation options and risks were discussed with the patient. All questions were answered, and informed consent was obtained. Prior Anticoagulants: The patient has taken no previous anticoagulant or antiplatelet agents. ASA Grade Assessment: II - A patient with mild systemic disease. After reviewing the risks and benefits, the patient was deemed in satisfactory condition to undergo the procedure. After obtaining informed consent, the endoscope was passed under direct vision. Throughout the procedure, the patient's blood pressure, pulse, and oxygen saturations were monitored continuously. The scope was introduced through the mouth, and advanced to the second part of duodenum. The upper GI endoscopy was accomplished without difficulty. The patient tolerated the procedure well. Findings: The esophagus was normal. Multiple sessile polyps with no stigmata of recent bleeding were found in the stomach. Biopsies were taken with a cold forceps for histology. The examined duodenum was normal. Impression: - Normal esophagus. - Multiple gastric polyps. Biopsied. - Normal examined duodenum. Recommendation: - Resume previous diet. - Continue present medications. - Await pathology results. - Return to GI office as previously scheduled. Jimmy Calderon DO 01/29/2017 2:48:37 PM This report has been signed electronically. Note Initiated On: 01/29/2017 1:55 PM I attest to the content of the Intraoperative Record and orders documented therein, exceptions below
[2017-01-29 15:04] VITALS: BP 137/81; PULSE 75; O2SAT 96
--- NOTE | 2017-01-29 15:13 | Anesthesiology Progress Note ---
Anesthesia Post Op Note Date & Time Jan 29, 2017 at 15:12 Vital Signs Pain Intensity: 0 Vital Signs Past 12 Hours Date Time Temp Pulse Resp B/P Pulse Ox O2 Delivery O2 Flow Rate FiO2 01/29/17 15:04 75 16 137/81 96 Room Air 01/29/17 14:49 76 16 120/79 97 Room Air 01/29/17 14:34 78 16 116/67 98 Room Air 01/29/17 13:20 36.8 83 20 162/91 98 Room Air Notes Mental Status: alert / awake / arousable, participated in evaluation Pt Amnestic to Procedure: Yes Nausea / Vomiting: adequately controlled Pain: adequately controlled Airway Patency, RR, SpO2: stable & adequate BP & HR: stable & adequate Hydration State: stable & adequate Anesthetic Complications: no major complications apparent
--- NOTE | 2017-01-29 15:24 | Discharge Instructions ---
Endoscopy Patient Instructions Date / Procedure(s) Performed Jan 29, 2017. Colonoscopy Allergy Information Coded Allergies: Prednisone (Verified Allergy, Intermediate, CAN NOT TOLERATE,-GETS VERY ANGRY,FEELS AWFUL, 01/26/17) Discharge Date / Findings Jan 29, 2017. EGD: Gastric polyps s/p biopsies Colonoscopy: Normal colonoscopy Medication Instructions Stopped Medication(s): TRIAMTERENE HCTZ LAST DOSE 01/28/17 OK to resume all medications today as prescribed Reported Home Medications Medications Dose Route/Sig Max Daily Dose Days Date Category Percocet 5MG/325MG (Oxycodone/Acetaminophen) Tab 1-2 Tablets PO Q6 PRN 20 01/21/17 Rx Docusate Sodium 100 Mg Cap 100 Mg PO BID 30 01/21/17 Rx Levothyroxine Sodium 50 Mcg Tab 1 Tab PO QAM 90 01/16/17 Reported Triamterene/Hctz 37.5-25MG (Triamterene/HCTZ) 1 Tab Tab 1 Tab PO QAM 04/27/16 Reported Prevacid (Lansoprazole) 30 Mg Capcr 30 Mg PO QAM 04/27/16 Reported Yesenia (Fexofenadine Hcl) 180 Mg Tab 180 Mg PO QAM 04/27/16 Reported Bupropion HCl Sr (Bupropion HCl) 150 Mg Tabcr 150 Mg PO BID 04/27/16 Reported Provider Instructions Activity Restrictions - No exercising or heavy lifting for 24 hours. - Do not drink alcohol the day of the procedure. - Do not drive a car or operate machinery until the day after the procedure. - Do not make any important decisions or sign important papers in 24 hours after the procedure. Following Day: - Return to full activity which may include returning to work/school. Diet Start your diet with liquids and light foods (jello, soup, juice, toast). Then eat your usual diet if not nauseated. Treatment For Common After Affects For mild abdominal pain, bloating, or excessive gas: - Rest - Eat lightly - Lie on right side Follow-Up Information Follow-up with DR ROSS as scheduled Anesthesia Information What You Should Know You have had a procedure that required some medicine to reduce anxiety and discomfort. This treatment is called moderate sedation. After receiving the treatment, you may be sleepy, but you will be able to breathe on your own. The effects of the treatment may last for several hours. Follow these instructions along with Activity/Diet recommendations noted above: * Do NOT do anything where dizziness or clumsiness would be dangerous. * Rest quietly at home today, then you can be up and about tomorrow. * Have a responsible person stay with you the rest of today. * You may have had an I.V. today. If so, you may take the dressing off later today. Recommendations Call your doctor if: * Trouble breathing * Continuous vomiting for more than 24 hours * Temperature above 101 degrees * Severe abdominal pain or bloating * Pain not relieved by pain medicine ordered * There is increased drainage or redness from any incision * A large amount of rectal bleeding greater than 2-3 tablespoons. (If you had a polyp/s removed or have hemorrhoids, a small amount of blood - from the rectum is to be expected.) * You have any unanswered questions or concerns. IN THE EVENT OF A SERIOUS EMERGENCY, GO TO THE NEAREST EMERGENCY ROOM Your discharge instructions were prepared by provider Jimmy Calderon. Patient Instructions Signature Page Al Ferrer Patient (or Guardian) Signature/Date: I have read and understand the instructions given to me by my caregivers. Caregiver/RN/Doctor Signature/Date: The above-named patient and/or guardian has received patient instructions on this date. + Original Patient Signature Page (only) stays with chart. Please make copy for patient.
== END | disposition home or self-care (01) ==
LOC: C.GI 12:45
PROVIDERS: ATTEND Internal Medicine
DX: K62.89 Other specified diseases of anus and rectum (principal); C43.9 Malignant melanoma of skin, unspecified; K31.7 Polyp of stomach and duodenum; Z88.1 Allergy status to other antibiotic agents; Z98.890 Other specified postprocedural states

== ENCOUNTER → 2017-02-02 | Outpatient (CLI) | payer OTHER ==
[~2017-02-02] MED LIST changes: +GADAVIST IV PRN; -LIDOCAINE HCL 2% 2 ML VIAL (20MG/ML) ONE; -MIDAZOLAM HCL 1 MG/ML 2ML VIAL ONE; -PROPOFOL IV EMULSION 10 MG/ML 20 ML VIAL IV ONE; -SODIUM CHLORIDE 0.9% 500ML 500 ML IV ONE
--- NOTE | 2017-02-02 20:09 | DIAGNOSTIC IMAGING REPORT ---
MRI OF THE BRAIN WITHOUT AND WITH IV CONTRAST CLINICAL HISTORY: C78.00 Metastatic melanoma to lung COMPARISON STUDY: No previous studies for comparison. TECHNIQUE: Utilizing a 1.5 Connie magnet and dedicated coil, multiplanar, multiecho imaging of the brain was performed pre and postcontrast administration. IV administration of 9.0 mL of Gadavist contrast was uneventful. FINDINGS: Unremarkable signal characteristics of the cerebellar as well as cerebral hemispheres. No evidence for an acute ischemic event. No evidence for abnormal postcontrast enhancement. Ventricular system is midline. IMPRESSION: Normal study. Electronically signed by: Shivam Pinedo M.D. 02/02/2017 8:07 PM Dictated Date/Time: 02/02/2017 8:07 PM
== END | disposition home or self-care (01) ==
LOC: C.MRI 18:27
PROVIDERS: ATTEND Surgery
DX: C78.00 Secondary malignant neoplasm of unspecified lung (principal)

== ENCOUNTER → 2017-03-04 | Outpatient (CLI) | payer OTHER ==
[~2017-03-04] MED LIST changes: -GADAVIST IV PRN; +OPTIRAY 320 IV PRN
--- NOTE | 2017-03-04 13:30 | DIAGNOSTIC IMAGING REPORT ---
CT OF THE NECK WITH CONTRAST CLINICAL HISTORY: Metastatic melanoma. Monoclonal gammopathy. TECHNIQUE: Axial images of the neck were obtained following intravenous injection of 93 cc of Optiray 320 IV. COMPARISON STUDY: PET/CT January 26, 2017. FINDINGS: Visualized portions of the intracranial contents are unremarkable. No enlarged cervical lymph nodes are identified. The parotid and submandibular glands are normal. The chest will be reported separately. No mucosal lesion is identified although these may be occult by CT. No suspicious nodules are identified within the neck. No suspicious osseous lesions are present. Major vasculature of the neck is patent. IMPRESSION: No evidence of metastatic disease within the neck. Electronically signed by: Delvis Stoddard M.D. 03/04/2017 1:29 PM Dictated Date/Time: 03/04/2017 1:24 PM
--- NOTE | 2017-03-04 13:36 | DIAGNOSTIC IMAGING REPORT ---
CT ABD/PELVIS IV AND ORAL CONT CLINICAL HISTORY: Melanoma, monoclonal gammopathy, pulmonary nodule. COMPARISON STUDY: 04/27/2016 TECHNIQUE: Following the IV administration of 93 mL of Optiray-320, CT scan of the abdomen and pelvis was performed from the lung bases to the proximal femurs. Images are reviewed in the axial, sagittal, and coronal planes. IV contrast was administered without complication. CT DOSE: 2595.83 mGy.cm FINDINGS: Lower chest: There are postsurgical changes present within the right lower lobe. There is a small right pleural effusion. Liver: There is a 3.6 cm indeterminate right lobe hepatic mass, similar in size to the preceding study. A second 8 mm hypodensity within the right hepatic lobe, purchase water attenuation likely represents a cyst Gallbladder: Surgically absent Spleen: Normal in size and attenuation. Pancreas: Unremarkable. Adrenal glands: Unremarkable. Kidneys: There is a 37 mm left renal cyst. No solid renal masses are visualized. There is no hydronephrosis. Bowel: There are no transition zones to indicate bowel obstruction. The appendix contains a tiny appendicolith. It appears otherwise normal. There is no acute diverticulitis. Peritoneum: There is no intraperitoneal free air or abdominal ascites. Vasculature: The abdominal aorta is normal in course and caliber. Adenopathy: None. Pelvic viscera: The bladder, and pelvic viscera are unremarkable. Skeletal structures: No destructive osseous lesions are seen. IMPRESSION: 1. Postsurgical changes within the right lower lobe. Small right pleural effusion 2. Stable 3.6 cm right lobe hepatic mass 3. Stable left renal cyst 4. No acute inflammatory changes 5. No evidence of pathologic adenopathy Electronically signed by: Andrew Dudley M.D. 03/04/2017 1:34 PM Dictated Date/Time: 03/04/2017 1:26 PM
--- NOTE | 2017-03-04 13:53 | DIAGNOSTIC IMAGING REPORT ---
CHEST CT WITH CONTRAST CT DOSE: HISTORY: Melanoma. Right pulmonary nodule. TECHNIQUE: Multiaxial CT images of the chest were performed following the intravenous administration of contrast. COMPARISON: Chest CT 01/14/2017. PET CT 01/26/2017. FINDINGS: Postoperative changes consistent with a prior right lower lobectomy. Small right pleural effusion has decreased in size. The 4 mm nodule within the right upper lobe has resolved. There are few linear scarlike densities within the right lung base. Focal area of enhancing right retrohilar soft tissue adjacent to the suture material best seen on image 158 of 331. This measures 1.6 cm. No right hilar lymphadenopathy. A few prominent mediastinal lymph nodes are not significantly changed. Dominant AP window lymph node measures 1.7 x 0.7 cm. Dominant right peritracheal lymph node measures 1.5 x 0.8 cm. Mildly enlarged left hilar lymph nodes. Dominant lymph node measures 1.5 x 1.1 cm. Stable 3.5 cm right hepatic lobe lesion. Scarlike density within the right lateral chest wall. Normal caliber thoracic aorta. The main pulmonary arteries are patent. The heart is normal in size. No suspicious lytic or blastic osseous lesions. No new or suspicious pulmonary nodules identified. IMPRESSION: 1. The right upper lobe 4 mm pulmonary nodule has resolved. No new or suspicious pulmonary nodules identified. 2. Postoperative changes consistent with prior right lower lobectomy. The small right pleural effusion has decreased in size. 3. Mild left hilar lymphadenopathy. Prominent mediastinal lymph nodes are not significantly changed. 4. A 1.6 cm right retrohilar enhancing focus adjacent to the suture material. This may represent a small amount of collapsed lung or postoperative change. Follow-up is recommended to ensure stability. 5. A stable 3.5 cm right hepatic lobe lesion. Electronically signed by: Boubacar Medley M.D. 03/04/2017 1:52 PM Dictated Date/Time: 03/04/2017 1:40 PM
== END | disposition home or self-care (01) ==
LOC: C.CTS 10:41
PROVIDERS: ATTEND Specialist
DX: C43.9 Malignant melanoma of skin, unspecified (principal); C78.00 Secondary malignant neoplasm of unspecified lung; D47.2 Monoclonal gammopathy; R91.1 Solitary pulmonary nodule; J90 Pleural effusion, not elsewhere classified; K76.89 Other specified diseases of liver

== ENCOUNTER → 2017-04-16 | Outpatient (CLI) | payer OTHER ==
[~2017-04-16] MED LIST changes: -OPTIRAY 320 IV PRN
--- NOTE | 2017-04-16 17:37 | DIAGNOSTIC IMAGING REPORT ---
TWO VIEW CHEST CLINICAL HISTORY: Cough. FINDINGS: PA and lateral chest radiographs are compared to study dated 01/27/2017 and correlated with chest CT dated 03/04/2017. The PA view is degraded by patient rotation. The cardiomediastinal silhouette is unremarkable. Emphysema and chronic interstitial thickening are similar to previous. There are postoperative changes from right-sided pulmonary resection. Pleural fluid is again noted at the right lung base. Minimal atelectasis is seen at the left lung base. There is no airspace consolidation typical for pneumonia. There is no pneumothorax. The skeletal structures are osteopenic. The bony thorax appears intact. Cholecystectomy clips are identified in the right upper quadrant. IMPRESSION: 1. No acute cardiopulmonary abnormality. 2. There are postoperative changes from right-sided pulmonary resection with pleural fluid at the right lung base. This is similar to previous. Electronically signed by: Paramjit Augustine M.D. 04/16/2017 5:35 PM Dictated Date/Time: 04/16/2017 5:33 PM
== END | disposition home or self-care (01) ==
LOC: C.LAB 16:19
PROVIDERS: ATTEND Internal Medicine Hematology & Oncology
DX: R05 Cough (principal)

== ENCOUNTER 2017-04-25 17:00 | Emergency (ER) | payer OTHER ==
[~2017-04-25] VITALS: Ht 182.9 cm; Wt 119.3 kg
[~2017-04-25 17:00] MED LIST changes: -AMOX875T PO; -BENZ100C84 PO; -BUPR-267 PO; -CMPS25 PR; -DIPH-416 PO; -DXM/4 PO; -FEXO1TAB49 PO; -LEVO175T3 PO; -MULT-506 PO; -ONDA8TAB6 PO; -OXYC-57 PO; -OXYC1TAB3 PO; -POTA-65 PO; -SYN150 PO; -TRAM-10 PO; -TRIA37.5 PO
[2017-04-25 17:03] VITALS: TEMP 36.7; Ht 182.9 cm; Wt 119.3 kg
[2017-04-25] MEDS ORDERED: SODIUM CHLORIDE 0.9% 1000ML 1,000 ML IV STA (17:26)
[2017-04-25] MEDS ORDERED: FENTANYL CITRATE INJ 50 MCG/1 ML 2 ML VIAL IV STA (17:26)
[2017-04-25] MEDS ORDERED: DiphenhydrAMINE HCL 50 MG/ML VIAL IV STA (17:26)
[2017-04-25] MEDS ORDERED: SODIUM CHLORIDE 0.9% 500ML 500 ML IV STA (17:26)
[2017-04-25] MEDS ORDERED: PROCHLORPERAZINE 5 MG/ML 2 ML VIAL IV STA (17:26)
--- NOTE | 2017-04-25 18:02 | EMERGENCY ROOM VISIT NOTE ---
History Report prepared by Aiden: Niya Cameron Under the Supervision of: Dr. Marizol Samano M.D. 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 LLR lung removed Pt started Thursday with bilateral frontal headache that radiates to back of head and nausea and vomting. Cough, on antibiotics and steroids. Thursday niht started with chills. Fever up to 102.6 . Aleve 1200 today Tylenol 1200 today Pt reports, weakness and dizziness. History of Present Illness The patient is a 51 year old male who presents to the Emergency Room with complaints of persistent headache starting 4 days ago. The patient is currently undergoing chemotherapy for melanoma. He was diagnosed with melanoma of the lung 3 months ago. The cancer was removed and they have not found evidence of cancer elsewhere in his body. He started treatment 4 weeks ago. Two weeks after his first treatment, he started having nausea, vomiting, and a severe cough. His 2nd treatment was 1 week ago. He started feeling unwell 4 days ago. He reports headache, decreased appetite, body aches, chills, and fever. Three days ago, he went to the cancer center and received fluids which improved his symptoms. He had a temperature of 102.6 degrees in the morning 2 days ago. He has not had a fever since. He has been taking Tylenol and Aleve for his headache to no significant relief. His headache is located behind his eyes and it feels as if his eyes will "pop out". He is sensitive to loud noises. He denies any sensitivity to light. He has been fluctuating between feeling hot and cold. Several nights ago, he was feeling unable to get warm even though the house was 78 degrees. He then started feeling warm and diaphoretic. He kept switching between hot and cold through the night. He feels lightheaded when he stands up. He denies any speech difficulty. He is trying to continue working through his treatment. Source of History: patient Onset: 4 days ago Position: head Quality: ache Timing: other (persistent) Associated Symptoms: + fevers, + chills, + diaphoresis, + cough, + nausea, + vomiting Note: Pt reports decreased appetites, body aches, sound sensitivity. Pt denies light sensitivity, speech difficulty, lightheaded when standing. Review of Systems See HPI for pertinent positives & negatives. A total of 10 systems reviewed and were otherwise negative. Past Medical & Surgical Medical Problems: (1) Abdominal pain (2) Mediastinal adenopathy Family History Cancer Diabetes mellitus Gallbladder disease Heart disease Social History Smoking Status: Never Smoker Marital Status: Housing Status: lives with family Occupation Status: employed Current/Historical Medications Scheduled Amoxicillin & Pot Clavulanate (Augmentin 875-125 mg), 1 TAB PO Q12 Bupropion Hcl (Bupropion Hcl Er), 150 MG PO BID Fexofenadine Hcl (Yesenia Allergy), 180 MG PO DAILY Lansoprazole (Prevacid), 30 MG PO QAM Levothyroxine Sodium (Levothyroxine Sodium), 50 MCG PO QAM Potassium Chloride (Potassium Chloride ER), 20 MEQ PO DAILY Prochlorperazine (Compazine Supp), 25 MG NJ Q12H Triamterene/Hctz (Dyazide 37.5MG/25MG), 1 CAP PO DAILY Scheduled PRN Benzonatate (Tessalon Perles), 100 MG PO TID PRN for Cough Ondansetron Hcl (Zofran), 8 MG PO Q8 PRN for Nausea Allergies Coded Allergies: Prednisone (Verified Allergy, Intermediate, CAN NOT TOLERATE,-GETS VERY ANGRY,FEELS AWFUL, 01/26/17) Physical Exam Vital Signs Date Time Temp Pulse Resp B/P (MAP) Pulse Ox O2 Delivery O2 Flow Rate FiO2 04/25/17 20:35 88 20 122/74 97 Room Air 04/25/17 18:35 81 16 116/74 95 Room Air 04/25/17 18:21 93 04/25/17 17:03 36.7 100 18 123/85 95 Room Air Physical Exam Vital signs reviewed. General: Well-appearing male, in no significant distress. HEENT: No scleral icterus, PERRLA, neck supple. Atraumatic. Cardiovascular: Regular rate and rhythm, no extra sounds. Pulmonary: Clear to auscultation bilaterally, normal work of breathing. Abdomen: Soft, nontender, nondistended, positive bowel sounds. Musculoskeletal: Atraumatic, no peripheral edema. Neurologic: Patient awake alert and oriented x 3, full strength in all 4 extremities. Cranial nerves 2 through 12 grossly intact. Skin: Warm, dry, no rash Medical Decision & Procedures ER Provider Diagnostic Interpretation: X-ray results as stated below per interpretation by me and the radiologist. Radiology results as stated below per my review and radiologist interpretation: CHEST ONE VIEW PORTABLE CLINICAL HISTORY: Fever. Metastatic melanoma. Lung resection. COMPARISON STUDY: Chest CT March 04, 2017 and chest radiograph April 16, 2017. FINDINGS: Lung volumes are diminished. This is unchanged. Linear bibasilar opacities suggest atelectasis. There is no evidence of pulmonary edema. Postoperative findings within the right hemithorax are present. Left hilar prominence is unchanged. IMPRESSION: No acute cardiopulmonary findings. Linear bibasilar opacities suggestive of atelectasis. Electronically signed by: Delvis Stoddard M.D. 04/25/2017 6:05 PM Dictated Date/Time: 04/25/2017 6:[address] OF THE HEAD WITHOUT CONTRAST CLINICAL HISTORY: Headache. History of melanoma. COMPARISON STUDY: MRI of the brain February 02, 2017. CT DOSE: 614.27 mGy.cm TECHNIQUE: Helical axial images of the head were obtained without IV contrast. Automated exposure control was utilized for the study. FINDINGS: No acute intracranial hemorrhage, midline shift or mass effect is present. Ventricular system is normal. Basilar cisterns are patent. There are no extra-axial collections. Chavez-white differentiation is maintained. There are no findings to suggest acute dural sinus thrombosis or acute territorial infarct. There are no significant calvarial abnormalities. Visualized portions of the sinuses and mastoid air cells are clear. IMPRESSION: No acute intracranial findings. Electronically signed by: Delvis Stoddard M.D. 04/25/2017 6:58 PM Dictated Date/Time: 04/25/2017 6:56 PM ABDOMINAL ULTRASOUND, RIGHT UPPER QUADRANT HISTORY: Elevated LFTs, vomiting, chemo. Melanoma. COMPARISON: CT of the abdomen and pelvis March 04, 2017. FINDINGS: Liver morphology is normal. Note is made of a 4 x 3.4 x 3.1 cm echogenic right hepatic lobe lesion which corresponds to the lesion shown on prior CT of March 04, 2017. This is similar size to initial chest CT of May 14, 2016. This favors a hemangioma. The gallbladder is surgically absent. No intrahepatic biliary ductal dilatation is identified. The common bile duct is largely obscured on this exam as is the pancreas due to suboptimal penetration. There is no right hydronephrosis. A right pleural effusion is incidentally noted. IMPRESSION: 1. 4 cm echogenic right hepatic lobe lesion. The sonographic appearance and stability from earlier imaging studies favors a hemangioma. 2. No intrahepatic biliary ductal dilatation status post cholecystectomy. Common bile duct and pancreas largely obscured on this exam. 3. Right pleural effusion. Electronically signed by: Delvis Stoddard M.D. 04/25/2017 8:21 PM Dictated Date/Time: 04/25/2017 8:16 PM Laboratory Results 04/25/17 17:51 Red Blood Count 5.42, Mean Corpuscular Volume 84.5, Mean Corpuscular Hemoglobin 30.8, Mean Corpuscular Hemoglobin Concent 36.5, Mean Platelet Volume 9.5, Neutrophils (%) (Auto) 71.5, Lymphocytes (%) (Auto) 18.3, Monocytes (%) (Auto) 8.0, Eosinophils (%) (Auto) 1.0, Basophils (%) (Auto) 0.8, Neutrophils # (Auto) 3.48, Lymphocytes # (Auto) 0.89, Monocytes # (Auto) 0.39, Eosinophils # (Auto) 0.05, Basophils # (Auto) 0.04 04/25/17 17:51 Test 04/25/17 17:51 04/25/17 17:58 04/25/17 18:15 White Blood Count 4.87 K/uL (4.8-10.8) Red Blood Count 5.42 M/uL (4.7-6.1) Hemoglobin 16.7 g/dL (14.0-18.0) Hematocrit 45.8 % (42-52) Mean Corpuscular Volume 84.5 fL (80-100) Mean Corpuscular Hemoglobin 30.8 pg (25-34) Mean Corpuscular Hemoglobin Concent 36.5 g/dl (32-36) Platelet Count 113 K/uL (130-400) Mean Platelet Volume 9.5 fL (7.4-10.4) Neutrophils (%) (Auto) 71.5 % Lymphocytes (%) (Auto) 18.3 % Monocytes (%) (Auto) 8.0 % Eosinophils (%) (Auto) 1.0 % Basophils (%) (Auto) 0.8 % Neutrophils # (Auto) 3.48 K/uL (1.4-6.5) Lymphocytes # (Auto) 0.89 K/uL (1.2-3.4) Monocytes # (Auto) 0.39 K/uL (0.11-0.59) Eosinophils # (Auto) 0.05 K/uL (0-0.5) Basophils # (Auto) 0.04 K/uL (0-0.2) RDW Standard Deviation 38.8 fL (36.4-46.3) RDW Coefficient of Variation 12.6 % (11.5-14.5) Immature Granulocyte % (Auto) 0.4 % Immature Granulocyte # (Auto) 0.02 K/uL (0.00-0.02) Prothrombin Time 12.7 SECONDS (9.0-12.0) Prothromb Time International Ratio 1.2 (0.9-1.1) Activated Partial Thromboplast Time 31.8 SECONDS (21.0-31.0) Partial Thromboplastin Ratio 1.2 Anion Gap 9.0 mmol/L (3-11) Est Creatinine Clear Calc Drug Dose 126.7 ml/min Estimated GFR () 111.2 Estimated GFR (Non- 96.0 BUN/Creatinine Ratio 7.6 (10-20) Calcium Level 8.9 mg/dl (8.5-10.1) Magnesium Level 1.8 mg/dl (1.8-2.4) Total Bilirubin 0.5 mg/dl (0.2-1) Direct Bilirubin 0.2 mg/dl (0-0.2) Aspartate Amino Transf (AST/SGOT) 113 U/L (15-37) Alanine Aminotransferase (ALT/SGPT) 158 U/L (12-78) Alkaline Phosphatase 166 U/L (45-117) Total Protein 7.0 gm/dl (6.4-8.2) Albumin 3.1 gm/dl (3.4-5.0) Bedside Lactic Acid Venous 1.17 mmol/L (0.90-1.70) Urine Color DK YELLOW Urine Appearance CLEAR (CLEAR) Urine pH 8.0 (4.5-7.5) Urine Specific [place] 1.022 (1.000-1.030) Urine Protein NEG (NEG) Urine Glucose (UA) NEG (NEG) Urine Ketones TRACE (NEG) Urine Occult Blood NEG (NEG) Urine Nitrite NEG (NEG) Urine Bilirubin NEG (NEG) Urine Urobilinogen POS (NEG) Urine Leukocyte Esterase TRACE (NEG) Urine WBC (Auto) 1-5 /hpf (0-5) Urine RBC (Auto) 10-30 /hpf (0-4) Urine Hyaline Casts (Auto) 5-10 /lpf (0-5) Urine Epithelial Cells (Auto) 20-30 /lpf (0-5) Urine Bacteria (Auto) NEG (NEG) Laboratory results per my review. Medications Administered Medications (Trade) Dose Ordered Sig/Darin Route Start Time Stop Time Status Last Admin Dose Admin Sodium Chloride 500 ml @ 999 mls/hr Q31M STAT IV 04/25/17 17:26 04/25/17 17:56 DC 04/25/17 18:16 999 MLS/HR Sodium Chloride 1,000 ml @ 150 mls/hr Q6H40M STAT IV 04/25/17 17:26 04/25/17 21:41 DC 04/25/17 18:16 150 MLS/HR Prochlorperazine Edisylate (Compazine Inj) 10 mg NOW STAT IV 04/25/17 17:26 04/25/17 17:29 DC 04/25/17 18:16 10 MG Diphenhydramine HCl (Benadryl Inj) 25 mg NOW STAT IV 04/25/17 17:26 04/25/17 17:29 DC 04/25/17 18:16 25 MG Fentanyl Citrate (Fentanyl Inj) 50 mcg NOW STAT IV 04/25/17 17:26 04/25/17 17:29 DC 04/25/17 18:15 50 MCG Acetaminophen 1000 mg/Empty Bag 100 ml @ 400 mls/hr NOW STAT IV 04/25/17 19:44 04/25/17 19:58 DC 04/25/17 20:42 400 MLS/HR ECG Indication: weakness Rate (beats per minute): 93 Rhythm: normal sinus Findings: no acute ischemic change, no ectopy ED Course 1724: Past medical records reviewed. The patient was evaluated in room B2. A complete history and physical examination was performed. 1725: Fentanyl Citrate 50 mcg IV, Benadryl Inj 25 mg IV, Compazine Inj 10 mg IV , NSS 1000 ml @ 150 mls/hr IV, NSS 500 ml @ 999 mls/hr IV. 1943: Acetaminophen 1000 mg/Empty Bag 100 ml @ 400 mls/hr IV. 2104: Upon reevaluation, the patient appeared to have improvement of his symptoms. I discussed findings with him. He verbalized agreement of the treatment plan. He was discharged home. Medical Decision Differential diagnosis: Intracranial hemorrhage, intracranial mass, migraine headache, tension headache , sinusitis, meningitis, chemotherapy effect, sepsis Medication Reconciliation: I attest that I have personally reviewed the patient' s current medication list. Blood Pressure Screening: Patient was found to have normal blood pressure on screening and does not require follow-up. This patient was evaluated and appeared to be in no significant distress. IV access was obtained and laboratory work was drawn. The patient was hydrated with normal saline solution. He was given IV Benadryl, IV Compazine and IV fentanyl. CT scan of the head was performed and is negative for acute intracranial abnormality. Chest x-ray was obtained and is negative. Laboratory work reveals a normal white blood cell count. Liver function studies are found to be elevated. This is likely secondary to the patient's vomiting and chemotherapy. Ultrasound of right upper quadrant was performed and reveals a stable hemangioma. The patient was informed of the findings. He complained of some residual headache and was given IV Tylenol 1000 mg. This seemed to improve his discomfort. Patient was asked to follow up with oncology this week for reevaluation. He will return to the ER for worsening of symptoms or any medical concerns. Impression Primary Impression: Headache Additional Impressions: Melanoma Medication adverse effect Scribe Attestation The scribe's documentation has been prepared under my direction and personally reviewed by me in its entirety. I confirm that the note above accurately reflects all work, treatment, procedures, and medical decision making performed by me. Departure Information Dispostion Home / Self-Care Prescriptions Prochlorperazine (Compazine Supp) 25 Mg Supp 25 MG NJ Q12H, #10 SUPP Prov: Marizol Samano M.D. 04/25/17 Referrals Fidel Montelongo D.O. (PCP) London Amaral D.O. Forms HOME CARE DOCUMENTATION FORM, IMPORTANT VISIT INFORMATION Patient Instructions My [facility] Additional Instructions Diagnosis: Headache, chemotherapy side effect, melanoma Please drink plenty of clear fluids. Compazine 25 mg suppository every 12 hours as needed for headache/nausea. Tylenol 650 mg every 6 hours as needed for pain. Follow-up with your oncologist this week for reevaluation. Return to the emergency department for worsening of symptoms or any medical concerns. Problem Qualifiers Primary Impression: Headache Headache type: unspecified Headache chronicity pattern: acute headache Intractability: intractable Qualified Codes: R51 - Headache Additional Impressions: Melanoma Melanoma location: unspecified site Qualified Codes: C43.9 - Malignant melanoma of skin, unspecified Medication adverse effect Encounter type: initial encounter Qualified Codes: T88.7XXA - Unspecified adverse effect of drug or medicament, initial encounter
--- NOTE | 2017-04-25 18:06 | DIAGNOSTIC IMAGING REPORT ---
CHEST ONE VIEW PORTABLE CLINICAL HISTORY: Fever. Metastatic melanoma. Lung resection. COMPARISON STUDY: Chest CT March 04, 2017 and chest radiograph April 16, 2017. FINDINGS: Lung volumes are diminished. This is unchanged. Linear bibasilar opacities suggest atelectasis. There is no evidence of pulmonary edema. Postoperative findings within the right hemithorax are present. Left hilar prominence is unchanged. IMPRESSION: No acute cardiopulmonary findings. Linear bibasilar opacities suggestive of atelectasis. Electronically signed by: Delvis Stoddard M.D. 04/25/2017 6:05 PM Dictated Date/Time: 04/25/2017 6:02 PM
[2017-04-25] MEDS ORDERED: AMOX875T PO (18:13)
[2017-04-25] MEDS ORDERED: ONDA8TAB6 PO (18:13)
[2017-04-25] MEDS ORDERED: TRIA37.5 PO (18:13)
[2017-04-25] MEDS ORDERED: BUPR-267 PO (18:13)
[2017-04-25] MEDS ORDERED: BENZ100C84 PO (18:13)
[2017-04-25] MEDS ORDERED: POTA-65 PO (18:13)
[2017-04-25] MEDS ORDERED: FEXO1TAB49 PO (18:13)
[2017-04-25 18:19] LABS: BASO % 0.8 %; BASO ABS # 0.04 K/uL (0-0.2); COMPLETE YES; HEMATOCRIT 45.8 % (42-52); IG% 0.4 %; LYMPH % 18.3 %; LYMPH ABS # 0.89 K/uL (1.2-3.4); MEAN CELL VOLUME 84.5 fL (80-100); MEAN CORPUSCULAR HEMOGLOBIN 30.8 pg (25-34); MEAN CORPUSCULAR HGB CONC 36.5 g/dl (32-36); MEAN PLATELET VOLUME 9.5 fL (7.4-10.4); NEUT % 71.5 %; PLATELET COUNT 113 K/uL (130-400); RED BLOOD COUNT 5.42 M/uL (4.7-6.1); WHITE BLOOD COUNT 4.87 K/uL (4.8-10.8)
[2017-04-25 18:30] LABS: INR 1.2 (0.9-1.1); PARTIAL THROMBOPLASTIN RATIO 1.2; PROTHROMBIN TIME (PATIENT) 12.7 SECONDS (9.0-12.0)
[2017-04-25 18:37] LABS: BUN/CREATININE RATIO 7.6 (10-20); CALCIUM 8.9 mg/dl (8.5-10.1); CREATININE 0.92 mg/dl (0.60-1.40); MAGNESIUM 1.8 mg/dl (1.8-2.4); POTASSIUM 3.8 mmol/L (3.5-5.1)
[2017-04-25 18:37] LABS: MANUAL MICROSCOPIC REQUIRED? NO; REVIEW REQ? NO; URINE APPEARANCE CLEAR (CLEAR); URINE BILIRUBIN NEG (NEG); URINE COLOR DK YELLOW; URINE EPITHELIAL CELL AUTO 20-30 /lpf (0-5); URINE NITRITE NEG (NEG); URINE SPECIFIC GRAVITY 1.022 (1.000-1.030); UROBILINOGEN POS (NEG); ZZUR CULT IF INDIC CLEAN CATCH NO
[2017-04-25 18:45] LABS: SULFASALICYLIC ACID NEG (NEG)
--- NOTE | 2017-04-25 19:00 | DIAGNOSTIC IMAGING REPORT ---
CT OF THE HEAD WITHOUT CONTRAST CLINICAL HISTORY: Headache. History of melanoma. COMPARISON STUDY: MRI of the brain February 02, 2017. CT DOSE: 614.27 mGy.cm TECHNIQUE: Helical axial images of the head were obtained without IV contrast. Automated exposure control was utilized for the study. FINDINGS: No acute intracranial hemorrhage, midline shift or mass effect is present. Ventricular system is normal. Basilar cisterns are patent. There are no extra-axial collections. Chavez-white differentiation is maintained. There are no findings to suggest acute dural sinus thrombosis or acute territorial infarct. There are no significant calvarial abnormalities. Visualized portions of the sinuses and mastoid air cells are clear. IMPRESSION: No acute intracranial findings. Electronically signed by: Delvis Stoddard M.D. 04/25/2017 6:58 PM Dictated Date/Time: 04/25/2017 6:56 PM
[2017-04-25] MEDS ORDERED: ACETAMINOPHEN IV 1,000 MG in EMPTY BAG 0 ML IV STA (19:44)
--- NOTE | 2017-04-25 20:22 | DIAGNOSTIC IMAGING REPORT ---
ABDOMINAL ULTRASOUND, RIGHT UPPER QUADRANT HISTORY: Elevated LFTs, vomiting, chemo. Melanoma. COMPARISON: CT of the abdomen and pelvis March 04, 2017. FINDINGS: Liver morphology is normal. Note is made of a 4 x 3.4 x 3.1 cm echogenic right hepatic lobe lesion which corresponds to the lesion shown on prior CT of March 04, 2017. This is similar size to initial chest CT of May 14, 2016. This favors a hemangioma. The gallbladder is surgically absent. No intrahepatic biliary ductal dilatation is identified. The common bile duct is largely obscured on this exam as is the pancreas due to suboptimal penetration. There is no right hydronephrosis. A right pleural effusion is incidentally noted. IMPRESSION: 1. 4 cm echogenic right hepatic lobe lesion. The sonographic appearance and stability from earlier imaging studies favors a hemangioma. 2. No intrahepatic biliary ductal dilatation status post cholecystectomy. Common bile duct and pancreas largely obscured on this exam. 3. Right pleural effusion. Electronically signed by: Delvis Stoddard M.D. 04/25/2017 8:21 PM Dictated Date/Time: 04/25/2017 8:16 PM
[2017-04-25 20:35] VITALS: BP 122/74; PULSE 88; O2SAT 97
[2017-04-25] MEDS ORDERED: ACETAMINOPHEN 1000 MG/100 ML IV IV ONE (20:37)
[2017-04-25] MEDS ORDERED: CMPS25 PR (21:04)
[2017-07-29] MEDS ORDERED: MULT-506 PO (05:39)
[2017-07-29] MEDS ORDERED: TRAM-10 PO (08:10)
[2017-07-29] MEDS ORDERED: OXYC-57 PO (08:26)
== END 2017-04-25 21:00 | disposition home or self-care (01) ==
LOC: C.EDB 17:02
DX: T88.7XXA Unspecified adverse effect of drug or medicament, initial encounter (principal); C43.9 Malignant melanoma of skin, unspecified; C78.00 Secondary malignant neoplasm of unspecified lung; Z79.899 Other long term (current) drug therapy

== ENCOUNTER → 2017-05-27 | Outpatient (CLI) | payer OTHER ==
[~2017-05-27] MED LIST changes: +AMOX875T PO; +BENZ100C84 PO; +BUPR-267 PO; -CLC100 PO; +CMPS25 PR; -FEXO1TAB46 PO; +FEXO1TAB49 PO; +MULT-506 PO; +ONDA8TAB6 PO; +OXYC-57 PO; +POTA-65 PO; +TRAM-10 PO; +TRIA37.5 PO; -TRIATAB3 PO; -WLLSR150 PO
--- NOTE | 2017-05-27 11:15 | DIAGNOSTIC IMAGING REPORT ---
BILATERAL CAROTID DOPPLER STUDY HISTORY: MELANOMA COMPARISON: None. TECHNIQUE: Real-time, grayscale, and color Doppler sonography of the carotid arteries was performed. Imaging reviewed in the transverse and longitudinal planes. All measurements were calculated based on NASCET criteria. FINDINGS: Antegrade flow is seen in the bilateral vertebral arteries. The brachial pressures are hemodynamically similar. The peak systolic velocity within the right ICA is 56 cm/s. The right systolic ratio is 0.6. The peak systolic velocity within the left ICA is 75 cm/s. The left systolic ratio is 0.8. IMPRESSION: No hemodynamically significant stenosis seen within the carotid arteries. Electronically signed by: Boubacar Medley M.D. 05/27/2017 11:14 AM Dictated Date/Time: 05/27/2017 11:13 AM
== END | disposition home or self-care (01) ==
LOC: C.ULTR 10:36
PROVIDERS: ATTEND Nurse Practitioner Family
DX: C43.9 Malignant melanoma of skin, unspecified (principal)

== ENCOUNTER → 2017-07-13 | Outpatient (CLI) | payer OTHER ==
--- NOTE | 2017-07-13 11:51 | DIAGNOSTIC IMAGING REPORT ---
PET/CT FULL BODY CLINICAL HISTORY: MELANOMA COMPARISON STUDY: PET/CT January 26, [address] of the chest abdomen and pelvis March 04, 2017. TECHNIQUE: Full body PET/CT was performed. 13.5 mCi of F 18 FDG IV was injected at 7:54 AM on July 13, 2017. Imaging began at 9:13 AM on July 13, 2017. Unenhanced CT was performed for attenuation correction purposes and anatomic localization. FINDINGS: Head and neck: No suspicious FDG uptake is identified within the neck. Mucosal thickening is likely physiologic. Thyroid uptake is symmetric and likely physiologic. There is no cervical lymphadenopathy. The brain is suboptimally assessed on this exam but appears unremarkable. Chest: Postsurgical findings consistent with a right lower lobectomy are noted. A small right pleural effusion has decreased in size since CT of March 04, 2007 13. A mildly enlarged right paratracheal lymph node shown on image 307 measures 1.5 x 1.4 cm. This has slightly increased in size since CT of March 04, 2017 when it measured 1.5 x 0.9 cm. The SUV max for this lymph node is 7.9. On PET/CT of January 26, 2017, the SUV max was 7.4. A left prevascular node shown on image 300 slightly increased in size. This node measures 1.7 x 0.9 cm. It previously measured 1.7 x 0.8 cm. The SUV max of this node is 5.7. It previously measured 5.5. Numerous additional smaller FDG avid bilateral hilar and mediastinal lymph nodes are noted. SUV max for left hilar nodes is 10.6. It previously measured 7.4. SUV max for the right hilar lymph nodes is 5.6. It previously measured 5.8. No new pulmonary nodules are identified although sensitivity is diminished given respiratory motion artifact. Abdomen and pelvis: Focal moderate to marked uptake is noted within the distal rectum with an SUV max of 7. A corresponding abnormality by CT is not identified although mucosal lesions may be occult by CT. There is no abdominal or pelvic lymphadenopathy. A left renal cyst is noted. The previously described right hepatic lobe hypodense lesion is suboptimally assessed on this exam due to artifact. There is no corresponding FDG uptake. Lower extremity: No suspicious uptake is identified within the lower extremities. There are no suspicious lesions. IMPRESSION: 1. Multiple mildly enlarged, markedly FDG avid mediastinal and bilateral hilar lymph nodes with slight increase in size and overall FDG avidity since exam of January 26, 2017. This inez uptake is nonspecific but favors slight progression of metastatic disease. 2. Small right pleural effusion status post right lower lobectomy. No new pulmonary nodules although sensitivity diminished given respiratory motion artifact on this exam. 3. Focal moderate to marked radiotracer uptake within the rectum. This could be correlated with digital rectal exam or colonoscopy to exclude a mucosal lesion although this may be physiologic. Electronically signed by: Delvis Stoddard M.D. 07/13/2017 11:50 AM Dictated Date/Time: 07/13/2017 10:44 AM
== END | disposition home or self-care (01) ==
LOC: C.PET 07:12
PROVIDERS: ATTEND Nurse Practitioner Family
DX: C43.9 Malignant melanoma of skin, unspecified (principal)

== ENCOUNTER → 2017-07-29 | Day surgery (SDC) | payer OTHER ==
[2017-07-27 12:50] VITALS: BMI 36.0
[~2017-07-29] VITALS: Ht 182.9 cm; Wt 120.5 kg
[~2017-07-29] MED LIST changes: -AMOX875T PO; +ATROPINE SULFATE 0.1 MG/ML 5ML SYR IV PRN; +CEFAZOLIN IV 2,000 MG/60 ML D5W IV ONE; -CMPS25 PR; +DEXAMETHASONE SOD INJ 4 MG/ML VIAL ONE; +EpHEDrine SULFATE INJ 50 MG/ML AMP IV PRN; +FENTANYL CITRATE INJ 50 MCG/1 ML 2 ML VIAL IV PRN; +FENTANYL CITRATE INJ 50 MCG/1 ML 2 ML VIAL ONE; +GLYCOPYRROLATE INJ 0.2 MG/ML VIAL ONE; +HYDROmorphone INJ 1 MG/ML SYR IV PRN; +LACTATED RINGER'S 1000ML 1,000 ML IV SCH; +LIDOCAINE HCL 2% 2 ML VIAL (20MG/ML) ONE; +METOCLOPRAMIDE HCL INJ 5 MG/ML 2 ML VIAL ONE; +MIDAZOLAM HCL 1 MG/ML 2ML VIAL ONE; +MoRPHine SULFATE 2 MG/ML CARP IV PRN; +NEOSTIGMINE METHYLSULFATE 5 MG/5 ML SYR ONE; +NURSING VERBAL MED ORDER ONE; -ONDA8TAB6 PO; +ONDANSETRON INJ 2 MG/ML 2 ML VIAL IV PRN; +ONDANSETRON INJ 2 MG/ML 2 ML VIAL ONE; +PROPOFOL IV EMULSION 10 MG/ML 20 ML VIAL IV ONE; +ROCURONIUM BROMIDE 10 MG/ML 5 ML VIAL IV ONE; +TRAMADOL HCL 50 MG TAB ONE; +TRAMADOL HCL 50 MG TAB PO PRN
[2017-07-29 05:42] VITALS: BP 140/94; PULSE 80; TEMP 37.1; O2SAT 95; Ht 182.9 cm; Wt 120.5 kg
--- NOTE | 2017-07-29 08:14 | Discharge Instructions ---
Discharge Instructions Date of Service Jul 29, 2017. Visit Reason for Visit: Mediastinal Adenopathy; Melanoma Discharge Discharge Diagnosis / Problem: Mediastinal Adenopathy; Melanoma Discharge Goals Goal(s): Learn about illness Activity Recommendations Activity Limitations: resume your previous activity (in 24 hours) Anesthesia . Post Anesthesia Instructions: If you have had General Anesthesia or IV Sedation: * Do not drive today. * Resume driving when surgeon permits. * Do not make important decisions or sign legal documents today. * Call surgeon for: 1. Temperature elevations greater than 101 degrees F. 2. Uncontrollable pain. 3. Excessive bleeding. 4. Persistent nausea and vomiting. 5. Medication intolerance (nausea, vomiting or rash). * For nausea and vomiting use only clear liquids such as: tea, soda, bouillon until nausea subsides, then gradually increase diet as tolerated. * If you have any concerns or questions, call your surgeon's office. If physician is unavailable and it is an emergency, call 911 or go to the nearest emergency room. . Instructions / Follow-Up Instructions / Follow-Up 1. Office appointment with Dr. Syed in 1 week. Office will call you with date and time of appointment. 2. Do not drive if taking percocet. 3. Call physician if you experience worsening shortness of breath, difficulty swallowing, or notice worsening swelling at surgical site. Diet Recommendations Recommended Home Diet: resume previous diet Procedures Procedures Performed: Video Mediastinoscopy with lymph node biopsies Pending Studies Studies pending at discharge: no Medical Emergencies . Who to Call and When: Medical Emergencies: If at any time you feel your situation is an emergency, please call 911 immediately. . Non-Emergent Contact Non-Emergency issues call your: Surgeon Call Non-Emergent contact if: you have a fever, your pain is not controlled, wound has increased drainage . . "Provider Documentation" section prepared by Tyler Calixto. .
--- NOTE | 2017-07-29 08:35 | DIAGNOSTIC IMAGING REPORT ---
CHEST ONE VIEW PORTABLE HISTORY: mediastinoscopy COMPARISON: Chest 04/25/2017. FINDINGS: Bibasilar linear densities have improved. No new focal lung consolidations. The heart is stable in size. No pleural effusions. No pneumothorax. IMPRESSION: Improvement in the bibasilar densities consistent with resolving atelectasis. Otherwise, no acute process within the chest. Electronically signed by: Boubacar Medley M.D. 07/29/2017 8:34 AM Dictated Date/Time: 07/29/2017 8:32 AM
--- NOTE | 2017-07-29 08:41 | OPERATIVE REPORT ---
DATE OF OPERATION: 07/29/2017 PREOPERATIVE DIAGNOSES: 1. History of malignant melanoma in right lower lobe. 2. Hypermetabolic mediastinal lymphadenopathy which is progressive. 3. Sarcoidosis. POSTOPERATIVE DIAGNOSES: Same. PROCEDURE: Video mediastinoscopy with biopsy. SURGEON: Dr. Syed. ANESTHESIA: General anesthesia with endotracheal intubation. SENIOR LIVING ADVISOR: JASPER Sarmiento. INDICATION FOR PROCEDURE AND FINDINGS: This is a very interesting 51-year-old male who had a mass in his right lower lobe. He is a nonsmoker. I wedged this out, showed carcinoma and I removed it. It turns out this is a malignant melanoma. I did a lobectomy and lymphadenectomy, we saw no evidence of involvement in the lymph nodes. He did have granulomatous disease consistent with sarcoid in these large lymph nodes. He has been followed with serial scans. He did receive postoperative chemotherapy under the direction of Dr. London Amaral. A recent CT PET showed increasing mediastinal adenopathy which was hypermetabolic. I had done an endobronchial ultrasound several months ago and we got lymphocytes back from our lymph node stations but no granulomas and no evidence of malignancy. For this reason, we elected to proceed with a video mediastinoscopy as this will help direct us as to whether or not to treat him with a different line of chemotherapy. On 07/29/2017, the patient underwent an uncomplicated video mediastinoscopy. We had no blood loss. I biopsied the right level 2, right level 4, right level 10, level 7, and left level 4 lymph nodes. He tolerated it well. PROCEDURE IN DETAIL: The patient brought to the operating room and laid in supine position. General anesthesia was induced and endotracheal intubation was performed. After prophylactic antibiotics had been given and appropriate timeout called, incision was made 1 fingerbreadth above the sternal notch transversely. Sharp and blunt dissection were used to dissect down and divide the strap muscles in the midline. The thyroid isthmus was encountered; however, I went over this anterior to it and then developed the plane in the pretracheal area bluntly with my finger. I then placed the video mediastinoscope. We were able to easily get down to the vasquez without difficulty. Upon pulling back, there was a small right level 2 node which I biopsied. There were 2 large right level 4 nodes and I removed them almost in their entirety. There was inflammation here as we had done a lymph node dissection in the past, with adhesions. I then went down, got below the azygos on the right, along the right mainstem bronchus laterally and biopsied a right level 10 node. I then went on the medial aspect of the mainstem bronchus on the right and came back up. I came upon a fairly large, hard, white subcarinal node which I biopsied and removed a large portion of it. I then gently went on to the left side. It should be noted that I did not stay on the distal trachea but went anterior and then over further again came down upon the right level 4 node and removed this. It should be noted that I used the cautery very little on the right, I did not use it at all on the left. I was careful with the left recurrent laryngeal nerve. We had no significant bleeding. I slowly withdrew the video mediastinoscope. 3-0 Vicryl was used in running continuous fashion to close the strap muscles and 4-0 Monocryl was used in a running subcuticular fashion to approximate the wound edges. He tolerated it quite well, was extubated in the room. I attest to the content of the Intraoperative Record and any orders documented therein. Any exception s are noted below.
--- NOTE | 2017-07-29 09:01 | Anesthesiology Progress Note ---
Anesthesia Post Op Note Date & Time Jul 29, 2017 at 09:01 Vital Signs Pain Intensity: 3 Vital Signs Past 12 Hours Date Time Temp Pulse Resp B/P (MAP) Pulse Ox O2 Delivery O2 Flow Rate FiO2 07/29/17 08:56 126/92 07/29/17 08:52 85 8 92 07/29/17 08:52 86 8 07/29/17 08:51 139/89 07/29/17 08:47 89 14 07/29/17 08:47 89 14 92 07/29/17 08:46 133/93 07/29/17 08:44 36.6 93 20 133/93 (109) 95 Room Air 07/29/17 08:42 91 12 99 07/29/17 08:42 91 12 07/29/17 08:41 146/93 07/29/17 08:37 87 11 98 07/29/17 08:37 86 11 07/29/17 08:36 88 13 07/29/17 08:36 87 13 144/95 98 07/29/17 08:31 88 14 141/89 98 07/29/17 08:31 88 14 07/29/17 08:26 98 11 07/29/17 08:26 98 11 142/93 100 07/29/17 08:21 99 17 140/84 98 07/29/17 08:21 99 17 07/29/17 08:17 140/92 07/29/17 08:16 102 99 07/29/17 08:16 36.3 100 16 140/92 (105) 99 Mask 10 07/29/17 08:16 102 07/29/17 05:42 37.1 80 20 140/94 (109) 95 Room Air Notes Mental Status: alert / awake / arousable, participated in evaluation Pt Amnestic to Procedure: Yes Nausea / Vomiting: adequately controlled Pain: adequately controlled Airway Patency, RR, SpO2: stable & adequate BP & HR: stable & adequate Hydration State: stable & adequate Anesthetic Complications: no major complications apparent
[2017-07-29 09:10] VITALS: BP 144/85; PULSE 86; TEMP 36.7; O2SAT 93
[2017-07-29 09:40] VITALS: BP 140/80; PULSE 91; O2SAT 97
[2017-07-29 10:10] VITALS: BP 142/88; PULSE 86; TEMP 36.3; O2SAT 93
== END | disposition home or self-care (01) ==
LOC: C.ACU 05:20
PROVIDERS: ATTEND Surgery
DX: R59.0 Localized enlarged lymph nodes (principal); Z85.118 Personal history of other malignant neoplasm of bronchus and lung; D86.9 Sarcoidosis, unspecified; G47.33 Obstructive sleep apnea (adult) (pediatric); F41.9 Anxiety disorder, unspecified; E03.9 Hypothyroidism, unspecified; E66.9 Obesity, unspecified; K21.9 Gastro-esophageal reflux disease without esophagitis; Z90.49 Acquired absence of other specified parts of digestive tract; Z90.89 Acquired absence of other organs; Z83.3 Family history of diabetes mellitus; Z80.3 Family history of malignant neoplasm of breast; Z90.2 Acquired absence of lung [part of]; M19.90 Unspecified osteoarthritis, unspecified site; Z92.21 Personal history of antineoplastic chemotherapy

== ENCOUNTER → 2017-08-12 | Day surgery (SDC) | payer OTHER ==
[2017-08-11 08:40] VITALS: Ht 182.9 cm; Wt 120.5 kg
[~2017-08-12] VITALS: Ht 182.9 cm; Wt 120.5 kg
[~2017-08-12] MED LIST changes: -ATROPINE SULFATE 0.1 MG/ML 5ML SYR IV PRN; -CEFAZOLIN IV 2,000 MG/60 ML D5W IV ONE; -DEXAMETHASONE SOD INJ 4 MG/ML VIAL ONE; -EpHEDrine SULFATE INJ 50 MG/ML AMP IV PRN; -FENTANYL CITRATE INJ 50 MCG/1 ML 2 ML VIAL IV PRN; -FENTANYL CITRATE INJ 50 MCG/1 ML 2 ML VIAL ONE; -GLYCOPYRROLATE INJ 0.2 MG/ML VIAL ONE; -HYDROmorphone INJ 1 MG/ML SYR IV PRN; -LACTATED RINGER'S 1000ML 1,000 ML IV SCH; -METOCLOPRAMIDE HCL INJ 5 MG/ML 2 ML VIAL ONE; -MIDAZOLAM HCL 1 MG/ML 2ML VIAL ONE; -MoRPHine SULFATE 2 MG/ML CARP IV PRN; -NEOSTIGMINE METHYLSULFATE 5 MG/5 ML SYR ONE; -NURSING VERBAL MED ORDER ONE; -ONDANSETRON INJ 2 MG/ML 2 ML VIAL IV PRN; -ONDANSETRON INJ 2 MG/ML 2 ML VIAL ONE; -ROCURONIUM BROMIDE 10 MG/ML 5 ML VIAL IV ONE; +SODIUM CHLORIDE 0.9% 500ML 500 ML IV ONE; -TRAMADOL HCL 50 MG TAB ONE; -TRAMADOL HCL 50 MG TAB PO PRN
[2017-08-12 11:55] VITALS: TEMP 36.7
--- NOTE | 2017-08-12 12:37 | Endo History and Physical ---
History & Physical Date of Service: Aug 12, 2017. Chief Complaint: abnormal PET scan Referring Physician: Dr. Fidel Montelongo History of Present Illness 51 yo CM who presents for Flexible sigmoidoscopy secondary to abnormal PET scan. Past Surgical History Hx Cardiac Surgery: No Hx Internal Defibrillator: No Hx Pacemaker: No Hx Abdominal Surgery: Yes (DESIREE) Hx of Implantable Prosthesis: No Hx Post-Op Nausea and Vomiting: No Hx Cancer Surgery: No Hx Thoracic Surgery: Yes (RT VATS) Hx Orthopedic: No Hx Urinary Tract Surgery: No Family History None Social History Smoking Status: Never Smoker Hx Substance Use: No Hx Alcohol Use: No Allergies Coded Allergies: Prednisone (Verified Adverse Reaction, Intermediate, CAN NOT TOLERATE,- GETS VERY ANGRY,FEELS AWFUL, 08/11/17) Current Medications Reported Home Medications Medications Dose Route/Sig Max Daily Dose Days Date Category Multivitamin (Multivitamins) Tab 1 Tab PO DAILY 07/29/17 Reported Potassium Chloride ER (Potassium Chloride) 20 Meq Tab 20 Meq PO DAILY 04/25/17 Reported Tessalon Perles (Benzonatate) 100 Mg Cap 100 Mg PO TID PRN 04/25/17 Reported Dyazide 37.5MG/25MG (Triamterene/HCTZ) Cap 1 Cap PO QAM 04/25/17 Reported Yesenia Allergy (Fexofenadine Hcl) 180 Mg Tab 180 Mg PO DAILY 04/25/17 Reported Bupropion Hcl Er (Bupropion Hcl) 150 Mg Tab 150 Mg PO BID 04/25/17 Reported Levothyroxine Sodium 50 Mcg Tab 50 Mcg PO QAM 01/16/17 Reported Prevacid (Lansoprazole) 30 Mg Capcr 30 Mg PO QAM 04/27/16 Reported Vital Signs Weight (Kilograms): 120.45 Height (Feet): 6 Height (Inches): 0 Date Time Temp Pulse Resp B/P (MAP) Pulse Ox O2 Delivery O2 Flow Rate FiO2 08/12/17 11:55 36.7 98 20 140/93 (109) 99 Room Air Physical Exam General Appearance: WD/WN, no apparent distress Respiratory/Chest: Auscultation: breath sounds normal Cardiovascular: Heart Auscultation: RRR Abdomen: Bowel Sounds: normal Inspection & Palpation: soft, non-distended, no tenderness, guarding & rebound Assessment and Plan Assessment: 51 yo CM who presents for Flexible sigmoidoscopy secondary to abnormal PET scan. Plan: Proceed with Flexible sigmoidoscopy.
--- NOTE | 2017-08-12 12:57 | Discharge Instructions ---
Endoscopy Patient Instructions Date / Procedure(s) Performed Aug 12, 2017. Flex Sig Allergy Information Coded Allergies: Prednisone (Verified Adverse Reaction, Intermediate, CAN NOT TOLERATE,- GETS VERY ANGRY,FEELS AWFUL, 08/11/17) Discharge Date / Findings Aug 12, 2017. Normal Flexible sigmoidoscopy Medication Instructions OK to resume all medications today as prescribed Reported Home Medications Medications Dose Route/Sig Max Daily Dose Days Date Category Multivitamin (Multivitamins) Tab 1 Tab PO DAILY 07/29/17 Reported Potassium Chloride ER (Potassium Chloride) 20 Meq Tab 20 Meq PO DAILY 04/25/17 Reported Tessalon Perles (Benzonatate) 100 Mg Cap 100 Mg PO TID PRN 04/25/17 Reported Dyazide 37.5MG/25MG (Triamterene/HCTZ) Cap 1 Cap PO QAM 04/25/17 Reported Yesenia Allergy (Fexofenadine Hcl) 180 Mg Tab 180 Mg PO DAILY 04/25/17 Reported Bupropion Hcl Er (Bupropion Hcl) 150 Mg Tab 150 Mg PO BID 04/25/17 Reported Levothyroxine Sodium 50 Mcg Tab 50 Mcg PO QAM 01/16/17 Reported Prevacid (Lansoprazole) 30 Mg Capcr 30 Mg PO QAM 04/27/16 Reported Provider Instructions Activity Restrictions - No exercising or heavy lifting for 24 hours. - Do not drink alcohol the day of the procedure. - Do not drive a car or operate machinery until the day after the procedure. - Do not make any important decisions or sign important papers in 24 hours after the procedure. Following Day: - Return to full activity which may include returning to work/school. Diet Start your diet with liquids and light foods (jello, soup, juice, toast). Then eat your usual diet if not nauseated. Treatment For Common After Affects For mild abdominal pain, bloating, or excessive gas: - Rest - Eat lightly - Lie on right side Follow-Up Information Follow-up with Dr. Fidel Montelongo as scheduled Anesthesia Information What You Should Know You have had a procedure that required some medicine to reduce anxiety and discomfort. This treatment is called moderate sedation. After receiving the treatment, you may be sleepy, but you will be able to breathe on your own. The effects of the treatment may last for several hours. Follow these instructions along with Activity/Diet recommendations noted above: * Do NOT do anything where dizziness or clumsiness would be dangerous. * Rest quietly at home today, then you can be up and about tomorrow. * Have a responsible person stay with you the rest of today. * You may have had an I.V. today. If so, you may take the dressing off later today. Recommendations Call your doctor if: * Trouble breathing * Continuous vomiting for more than 24 hours * Temperature above 101 degrees * Severe abdominal pain or bloating * Pain not relieved by pain medicine ordered * There is increased drainage or redness from any incision * A large amount of rectal bleeding greater than 2-3 tablespoons. (If you had a polyp/s removed or have hemorrhoids, a small amount of blood - from the rectum is to be expected.) * You have any unanswered questions or concerns. IN THE EVENT OF A SERIOUS EMERGENCY, GO TO THE NEAREST EMERGENCY ROOM Your discharge instructions were prepared by provider Jimmy Calderon. Patient Instructions Signature Page Al Ferrer Patient (or Guardian) Signature/Date: I have read and understand the instructions given to me by my caregivers. Caregiver/RN/Doctor Signature/Date: The above-named patient and/or guardian has received patient instructions on this date. + Original Patient Signature Page (only) stays with chart. Please make copy for patient.
--- NOTE | 2017-08-12 13:12 | GI REPORT ---
Procedure Date: 08/12/2017 12:27 PM Procedure: Flexible Sigmoidoscopy Indications: Abnormal PET scan of the GI tract Medicines: Monitored Anesthesia Care Complications: No immediate complications. Estimated Blood Loss: Estimated blood loss: none. Procedure: Pre-Anesthesia Assessment: - Prior to the procedure, a History and Physical was performed, and patient medications and allergies were reviewed. The patient's tolerance of previous anesthesia was also reviewed. The risks and benefits of the procedure and the sedation options and risks were discussed with the patient. All questions were answered, and informed consent was obtained. Prior Anticoagulants: The patient has taken no previous anticoagulant or antiplatelet agents. ASA Grade Assessment: III - A patient with severe systemic disease. After reviewing the risks and benefits, the patient was deemed in satisfactory condition to undergo the procedure. After obtaining informed consent, the endoscope was passed under direct vision. Throughout the procedure, the patient's blood pressure, pulse, and oxygen saturations were monitored continuously. The scope was introduced through the anus and advanced to the sigmoid colon. The flexible sigmoidoscopy was accomplished without difficulty. The patient tolerated the procedure well. The quality of the bowel preparation was good. Findings: The perianal and digital rectal examinations were normal. The colon (entire examined portion) appeared normal. Impression: - The entire examined colon is normal. - No specimens collected. Recommendation: - Resume previous diet. - Continue present medications. - Return to primary care physician as previously scheduled. Jimmy Calderon DO 08/12/2017 1:11:46 PM This report has been signed electronically. Note Initiated On: 08/12/2017 12:27 PM I attest to the content of the Intraoperative Record and orders documented therein, exceptions below
[2017-08-12 13:25] VITALS: BP 127/89; PULSE 78; O2SAT 96
--- NOTE | 2017-08-12 14:06 | Anesthesiology Progress Note ---
Anesthesia Post Op Note Date & Time Aug 12, 2017 at 14:06 Vital Signs Pain Intensity: 0 Vital Signs Past 12 Hours Date Time Temp Pulse Resp B/P (MAP) Pulse Ox O2 Delivery O2 Flow Rate FiO2 08/12/17 13:25 78 16 127/89 (102) 96 Room Air 08/12/17 13:10 82 16 124/85 (98) 98 Room Air 08/12/17 12:55 81 16 123/73 (90) 95 Room Air 08/12/17 11:55 36.7 98 20 140/93 (109) 99 Room Air Notes Mental Status: alert / awake / arousable, participated in evaluation Pt Amnestic to Procedure: Yes Nausea / Vomiting: adequately controlled Pain: adequately controlled Airway Patency, RR, SpO2: stable & adequate BP & HR: stable & adequate Hydration State: stable & adequate Anesthetic Complications: no major complications apparent
== END | disposition home or self-care (01) ==
LOC: C.GI 11:29
PROVIDERS: ATTEND Internal Medicine
DX: R93.3 Abnormal findings on diagnostic imaging of other parts of digestive tract (principal); Z79.899 Other long term (current) drug therapy

== ENCOUNTER 2017-09-16 18:44 | Inpatient (IN) | payer OTHER ==
[~2017-09-16] VITALS: Ht 182.9 cm; Wt 120.9 kg
[~2017-09-16 18:44] MED LIST changes: -LIDOCAINE HCL 2% 2 ML VIAL (20MG/ML) ONE; -OXYC-57 PO; -PROPOFOL IV EMULSION 10 MG/ML 20 ML VIAL IV ONE; -SODIUM CHLORIDE 0.9% 500ML 500 ML IV ONE; -TRAM-10 PO
[2017-09-16] MEDS ORDERED: DIPH-416 PO (19:37)
[2017-09-16] MEDS ORDERED: OXYC1TAB3 PO (19:37)
[2017-09-16] MEDS ORDERED: SYN150 PO (19:37)
[2017-09-16 19:56] LABS: BASO % 0.3 %; BASO ABS # 0.02 K/uL (0-0.2); COMPLETE YES; EOS % 0.4 %; HEMATOCRIT 45.7 % (42-52); IG% 0.3 %; LYMPH % 17.9 %; LYMPH ABS # 1.39 K/uL (1.2-3.4); MEAN CELL VOLUME 86.9 fL (80-100); MEAN CORPUSCULAR HEMOGLOBIN 31.2 pg (25-34); MEAN CORPUSCULAR HGB CONC 35.9 g/dl (32-36); MEAN PLATELET VOLUME 9.3 fL (7.4-10.4); MONO % 10.2 %; NEUT % 70.9 %; PLATELET COUNT 193 K/uL (130-400); RED BLOOD COUNT 5.26 M/uL (4.7-6.1); WHITE BLOOD COUNT 7.78 K/uL (4.8-10.8)
[2017-09-16 20:27] LABS: ALB/GLOB RATIO 1.1 (0.9-2); BUN/CREATININE RATIO 8.6 (10-20); C-REACTIVE PROTEIN 0.36 mg/dl (0-0.29); CREATININE 1.29 mg/dl (0.60-1.40); MAGNESIUM 1.9 mg/dl (1.8-2.4); POTASSIUM 3.4 mmol/L (3.5-5.1)
--- NOTE | 2017-09-16 20:39 | EMERGENCY ROOM VISIT NOTE ---
History First contact with patient: 18:58 Chief Complaint: NEURO SYMPTOMS Stated Complaint: DOUBLE VISION, SLURRED X'S 2 WEEKS Nursing Triage Summary: Pt reports he has been having neurosymptoms for 2 weeks. repots double vision, difficulty pronouncing words (feels like there is peanut butter in my mouth). Denies numbness, tingling or weakness. Phoebe on maintainence chemotherapy, last dose 09/03/17 for melanoma. Had RLL lobe ectomy due to melanoma. Reports he is currently cancer free. On oxycodone for "constipation" pupils constricted upon assessment. History of Present Illness The patient is a 51 year old male who presents to the Emergency Room with complaints of double vision. The patient states that he has had double vision, trouble focusing his eyes and speech difficulties for the past 2 weeks. He states the double vision is constant and improves when he is able to focus his vision on a single item. He has had some slurred speech which he describes as trouble pronouncing certain words. The patient has a history of metastatic melanoma and has had a lung resection and chemotherapy. He most recently received chemotherapy 2 weeks ago. He has a thyroid disorder secondary to this and has had his Synthroid increased recently. He saw an director selection and administration yesterday who told him that his eye exam was within normal limits and scheduled an MRI. The patient reports that his called the on-call oncologist hollie and they told him to come to the emergency department for evaluation. The patient denies any confusion, numbness or weakness. He denies any headache or neck pain. He does state that he has had some slight difficulty swallowing recently. Review of Systems A complete 10 point review of systems was reviewed with the patient with pertinent positives and negatives as per history of present illness. All else were negative. Past Medical/Surgical History Medical Problems: (1) Abdominal pain (2) Diplopia (3) Mediastinal adenopathy (4) Metastatic melanoma Family History Cancer Diabetes mellitus Gallbladder disease Heart disease Social History Smoking Status: Never Smoker Marital Status: Housing Status: lives with family Occupation Status: employed Current/Historical Medications Scheduled Bupropion Hcl (Bupropion Hcl Er), 150 MG PO BID17 Dexamethasone (Decadron), 4 TAB PO BID Lansoprazole (Prevacid), 30 MG PO QAM Levothyroxine Sodium (Levothyroxine Sodium), 1 TAB PO QAM Multivitamin (Multivitamin), 1 TAB PO DAILY Potassium Chloride (Potassium Chloride ER), 20 MEQ PO DAILY Triamterene/Hctz (Dyazide 37.5MG/25MG), 1 CAP PO QAM Scheduled PRN Diphenoxylate/Atropine (Lomotil), 1-2 TAB PO Q8 PRN for Fexofenadine Hcl (Yesenia Allergy), 180 MG PO DAILY PRN for Oxycodone Ir (Roxicodone Ir), 10 MG PO DAILY PRN for Physical Exam Vital Signs Date Time Temp Pulse Resp B/P (MAP) Pulse Ox O2 Delivery O2 Flow Rate FiO2 09/16/17 21:58 84 18 142/94 96 Room Air 09/16/17 20:56 78 18 132/96 96 Room Air 09/16/17 18:46 37.1 96 20 154/104 93 Room Air Physical Exam VITALS: Vitals are noted on the nurse's note and reviewed by myself. Vital signs stable. GENERAL: This is a 51-year-old male, in no acute distress, nondiaphoretic, well- developed well-nourished. SKIN: The skin was without rashes. EARS: External auditory canals clear, tympanic membranes pearly chavez without erythema or effusion bilaterally. EYES: Pupils equal round and reactive to light and accommodation. There is some apparent chemosis of the left inferomedial conjunctiva. EOMs in the left eye are delayed compared to right. MOUTH: Mucous membranes moist. NECK: Supple without nuchal rigidity. No lymphadenopathy. No thyromegaly. HEART: Regular rate and rhythm without murmurs gallops or rubs. LUNGS: Clear to auscultation bilaterally without wheezes, rales or rhonchi. MUSCULOSKELETAL: Strength 5/5 throughout. NEURO: Patient was alert and oriented to person place and time. Normal sensation to light and sharp touch. No focal neurological deficits. Medical Decision & Procedures ER Provider Diagnostic Interpretation: MRI OF THE BRAIN COMBO CLINICAL HISTORY: Diplopia. History of metastatic melanoma. COMPARISON STUDY: MRI of the brain dated 02/02/2017. CT of the brain dated 04/25/2017. TECHNIQUE: MRI of the brain was performed utilizing various T1 and T2-weighted sequences in the axial, sagittal, and coronal planes. Contrast-enhanced sequences were acquired following the administration of 12 cc of Gadavist. FINDINGS: Brain parenchyma: The brain parenchyma is normal in appearance. There is no hemorrhage or mass effect. There is no restricted diffusion to suggest acute ischemia. No enhancing mass lesion is identified on the postcontrast images. Chavez-white matter differentiation is preserved. No extra-axial fluid collection is seen. The cerebellar tonsils are normal in configuration. Ventricles, sulci, and cisterns: Normal in configuration. Pituitary and sella: Unremarkable. Intracranial vasculature: Normal flow voids are maintained at the skull base. Orbits: The bony orbits are grossly intact. Orbital contents are normal in appearance. Sinuses and mastoids: Trace mucosal thickening is seen in the left maxillary antrum. The remaining paranasal sinuses and mastoid air cells are clear. Calvarium: Unremarkable. Cervical cord: Partially visualized cervical spinal cord is normal in morphology and signal intensity. IMPRESSION: No acute intracranial abnormality. Laboratory Results 09/16/17 19:45 Red Blood Count 5.26, Mean Corpuscular Volume 86.9, Mean Corpuscular Hemoglobin 31.2, Mean Corpuscular Hemoglobin Concent 35.9, Mean Platelet Volume 9.3, Neutrophils (%) (Auto) 70.9, Lymphocytes (%) (Auto) 17.9, Monocytes (%) (Auto) 10.2, Eosinophils (%) (Auto) 0.4, Basophils (%) (Auto) 0.3, Neutrophils # (Auto ) 5.53, Lymphocytes # (Auto) 1.39, Monocytes # (Auto) 0.79, Eosinophils # (Auto ) 0.03, Basophils # (Auto) 0.02 09/16/17 19:45 Test 09/16/17 19:45 09/16/17 23:00 White Blood Count 7.78 K/uL (4.8-10.8) Red Blood Count 5.26 M/uL (4.7-6.1) Hemoglobin 16.4 g/dL (14.0-18.0) Hematocrit 45.7 % (42-52) Mean Corpuscular Volume 86.9 fL (80-100) Mean Corpuscular Hemoglobin 31.2 pg (25-34) Mean Corpuscular Hemoglobin Concent 35.9 g/dl (32-36) Platelet Count 193 K/uL (130-400) Mean Platelet Volume 9.3 fL (7.4-10.4) Neutrophils (%) (Auto) 70.9 % Lymphocytes (%) (Auto) 17.9 % Monocytes (%) (Auto) 10.2 % Eosinophils (%) (Auto) 0.4 % Basophils (%) (Auto) 0.3 % Neutrophils # (Auto) 5.53 K/uL (1.4-6.5) Lymphocytes # (Auto) 1.39 K/uL (1.2-3.4) Monocytes # (Auto) 0.79 K/uL (0.11-0.59) Eosinophils # (Auto) 0.03 K/uL (0-0.5) Basophils # (Auto) 0.02 K/uL (0-0.2) RDW Standard Deviation 42.8 fL (36.4-46.3) RDW Coefficient of Variation 13.6 % (11.5-14.5) Immature Granulocyte % (Auto) 0.3 % Immature Granulocyte # (Auto) 0.02 K/uL (0.00-0.02) Anion Gap 6.0 mmol/L (3-11) Est Creatinine Clear Calc Drug Dose 94.3 ml/min Estimated GFR () 73.9 Estimated GFR (Non- 63.8 BUN/Creatinine Ratio 8.6 (10-20) Calcium Level 9.0 mg/dl (8.5-10.1) Magnesium Level 1.9 mg/dl (1.8-2.4) Total Bilirubin 0.4 mg/dl (0.2-1) Aspartate Amino Transf (AST/SGOT) 49 U/L (15-37) Alanine Aminotransferase (ALT/SGPT) 64 U/L (12-78) Alkaline Phosphatase 78 U/L (45-117) C-Reactive Protein 0.36 mg/dl (0-0.29) Total Protein 7.7 gm/dl (6.4-8.2) Albumin 4.1 gm/dl (3.4-5.0) Globulin 3.6 gm/dl (2.5-4.0) Albumin/Globulin Ratio 1.1 (0.9-2) Thyroid Stimulating Hormone (TSH) 94.000 uIu/ml (0.300-4.500) Free Thyroxine 1.02 ng/dl (0.80-1.60) Chemistry Specimen Hemolysis Prothrombin Time 11.0 SECONDS (9.0-12.0) Prothromb Time International Ratio 1.0 (0.9-1.1) Free Triiodothyronine 2.39 pg/ml (2.30-4.20) Medications Administered Medications (Trade) Dose Ordered Sig/Darin Route Start Time Stop Time Status Last Admin Dose Admin Methylprednisolone Sodium Succinate (Solu-Medrol IV) 125 mg STK-MED ONCE .ROUTE 09/16/17 22:46 09/16/17 22:47 DC 09/16/17 23:05 100 MG ED Course The patient was evaluated as above. Labs were drawn and IV access was obtained. MRI of the brain was performed and read by radiology as above. Case was discussed with Dr. Torres of hematology/oncology. He feels the patient should be admitted to medicine for inpatient workup and treatment. Patient was reevaluated and findings were discussed. The patient is agreeable to inpatient treatment. Case was discussed with the [facility] hospitalist, Dr. Valentine. They agreed to evaluate the patient for admission. Medical Decision Differential diagnosis includes malignancy/mass effect, hormone imbalance, electrolyte abnormality, CVA, TIA, infection, among others. The patient is a 51-year-old male who presents today complaining of that will vision, slurred speech and difficulty swallowing over the past 2 weeks. Patient has a history of metastatic melanoma and is currently being treated with pembrolizumab q 3 weeks. The patient has recently had some problems with his thyroid. He does have a history of hypothyroidism, but his TSH has been steadily increasing despite increasing his dosages of Synthroid. Labs revealed today were unremarkable except for a TSH of 94. MRI was unremarkable. I did speak with Dr. 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 He recommended inpatient treatment with IV steroids and endocrinology consultation. The patient was agreeable to this. He will be admitted to the [facility] medicine service. The patient's case was reviewed with Dr. Toure, ED attending physician, who agreed with my assessment and treatment plan. Medication Reconcilliation Current Medication List: was personally reviewed by me Blood Pressure Screening Patient's blood pressure: Elevated blood pressure Blood pressure disposition: Elevated BP felt to be situational Impression Primary Impression: Diplopia Departure Information Prescriptions Dexamethasone (DECADRON) 4 Mg Tab 4 TAB PO BID for 2 Days, #8 TAB Prov: Edil Philip MD 09/17/17 Levothyroxine Sodium (LEVOTHYROXINE SODIUM) 175 Mcg Tab 1 TAB PO QAM for 30 Days, #30 TAB 5 Refills Prov: Edil Philip MD 09/17/17 Referrals Fidel Montelongo D.O. (PCP) Patient Instructions [facility]
[2017-09-16] MEDS ORDERED: GADAVIST IV PRN (22:00)
--- NOTE | 2017-09-16 22:03 | DIAGNOSTIC IMAGING REPORT ---
MRI OF THE BRAIN COMBO CLINICAL HISTORY: Diplopia. History of metastatic melanoma. COMPARISON STUDY: MRI of the brain dated 02/02/2017. CT of the brain dated 04/25/2017. TECHNIQUE: MRI of the brain was performed utilizing various T1 and T2-weighted sequences in the axial, sagittal, and coronal planes. Contrast-enhanced sequences were acquired following the administration of 12 cc of Gadavist. FINDINGS: Brain parenchyma: The brain parenchyma is normal in appearance. There is no hemorrhage or mass effect. There is no restricted diffusion to suggest acute ischemia. No enhancing mass lesion is identified on the postcontrast images. Chavez-white matter differentiation is preserved. No extra-axial fluid collection is seen. The cerebellar tonsils are normal in configuration. Ventricles, sulci, and cisterns: Normal in configuration. Pituitary and sella: Unremarkable. Intracranial vasculature: Normal flow voids are maintained at the skull base. Orbits: The bony orbits are grossly intact. Orbital contents are normal in appearance. Sinuses and mastoids: Trace mucosal thickening is seen in the left maxillary antrum. The remaining paranasal sinuses and mastoid air cells are clear. Calvarium: Unremarkable. Cervical cord: Partially visualized cervical spinal cord is normal in morphology and signal intensity. IMPRESSION: No acute intracranial abnormality. Electronically signed by: Paramjit Augustine M.D. 09/16/2017 10:02 PM Dictated Date/Time: 09/16/2017 9:59 PM
[2017-09-16] MEDS ORDERED: METHYLPREDNISOLONE IV 100 MG in SYRINGE 0 ML IV STA (22:27)
[2017-09-16] MEDS ORDERED: METHYLPREDNISOLONE 125 MG VIAL ONE (22:46)
[2017-09-16] MEDS ORDERED: DIPHENOXYLATE/ATROPINE 2.5/0.025MG TAB PO PRN (23:30)
[2017-09-16] MEDS ORDERED: OXYCODONE HCL IR 5 MG TAB (IMMEDIATE RELEASE) PO PRN (23:30)
[2017-09-16] MEDS ORDERED: FEXOFENADINE HCL 180 MG TAB PO PRN (23:30)
[2017-09-16] MEDS ORDERED: ALUMINUM/MAGNESIUM/SIMETH (MAALOX MAX) 30 ML UDC PO PRN (23:30)
[2017-09-16] MEDS ORDERED: MAGNESIUM HYDROXIDE SUSP 30 ML UDC PO PRN (23:30)
[2017-09-16] MEDS ORDERED: ONDANSETRON INJ 2 MG/ML 2 ML VIAL IV PRN (23:30)
[2017-09-16] MEDS ORDERED: ACETAMINOPHEN 325 MG TAB PO PRN (23:30)
--- NOTE | 2017-09-16 23:45 | History and Physical ---
History & Physical Date & Time of Service: Sep 16, 2017 at 23:36 Chief Complaint: Double Vision, Slurred X's 2 Weeks Primary Care Physician: Fidel Montelongo D.O. History of Present Illness Source: patient, family Mr Al Ferrer is a 51 yo M with history of hypothyroidism, sarcoidosis, and malignant melanoma who presents with double vision. He reports this started two weeks ago, after getting another chemo infusion treatment. He reports it is constant, and worse with eye movements. He is able to focus on objects but when he has to to the sides, it feels as though his left eye is lagging behind. He reports he has never had double vision like this before. He denies headache, pain with eye movements. He reports he has noticed his tongue to be larger than usual, and finds he tends to bite on it sometimes. He denies any difficulty swallowing. He has noticed some slurring of his speech but that is since his tongue is large. He saw his terrazzo installer in [place] yesterday, when he had the diplopia, and complete exam was normal. He was given a L eye patch which has helped. Regarding his past history, he was previously healthy, until about a year ago when he was admitted for idiopathic pancreatitis. A CT scan completed showed a lung nodule, which was monitored. He then had a repeat CT scan which showed the nodule enlarging, and he had a wedge resection, which showed this to be melanoma. The primary lesion remans unknown. Since then, he has had chemotherapy including ipilimumab, which he reports caused side effects including nausea/vomiting and diarrhea, so he was switched to pembrolizumab ( Keytruda). He reports he has had 3 infusions of this so far. Regarding his hypothyroidism, he also has had this for a long time, then his TSH kept rising over the last few months, up to 40 then 50. His dose of Synthroid was increased from 50mcg, to 125, and is now 150mcg daily. He reports he is compliant with these medications. He reports he also recently had a PET scan which showed multiple areas lighting up in the lungs, but reports this was found to be from sarcoidosis. Past Medical/Surgical History PMHx: Hypothyroidism Sarcoidosis Melanoma PSHx: Cholecystectomy R Lobectomy Family History Cancer Diabetes mellitus Gallbladder disease Heart disease No Fhx of diabetes, CAD, or stroke. His half-brother has multiple sclerosis. Social History Smoking Status: Never Smoker Marital Status: Occupational Status: employed Allergies Coded Allergies: Prednisone (Verified Adverse Reaction, Intermediate, CAN NOT TOLERATE,- GETS VERY ANGRY,FEELS AWFUL, 09/16/17) Home Medications Scheduled Bupropion Hcl (Bupropion Hcl Er), 150 MG PO BID17 Lansoprazole (Prevacid), 30 MG PO QAM Levothyroxine Sodium (Synthroid), 150 MCG PO QAM Multivitamin (Multivitamin), 1 TAB PO DAILY Potassium Chloride (Potassium Chloride ER), 20 MEQ PO DAILY Triamterene/Hctz (Dyazide 37.5MG/25MG), 1 CAP PO QAM Scheduled PRN Diphenoxylate/Atropine (Lomotil), 1-2 TAB PO Q8 PRN for Fexofenadine Hcl (Yesenia Allergy), 180 MG PO DAILY PRN for Oxycodone Ir (Roxicodone Ir), 10 MG PO DAILY PRN for Review of Systems See HPI for pertinent positives & negatives. A total of 10 systems reviewed and were otherwise negative. Physical Exam Vital Signs Date Time Temp Pulse Resp B/P (MAP) Pulse Ox O2 Delivery O2 Flow Rate FiO2 09/16/17 21:58 84 18 142/94 96 Room Air 09/16/17 20:56 78 18 132/96 96 Room Air 09/16/17 18:46 37.1 96 20 154/104 93 Room Air General Appearance: WD/WN, no apparent distress Head: normocephalic, atraumatic Eyes: normal inspection, PERRL, EOMI, + pertinent finding (L sided ptosis) ENT: hearing grossly normal Neck: supple, no JVD Respiratory/Chest: lungs clear, normal breath sounds, no respiratory distress Cardiovascular: regular rate, rhythm, no murmur, normal peripheral pulses Abdomen/GI: normal bowel sounds, non tender, soft Back: normal inspection, no CVA tenderness, no muscle spasm, normal range of motion Extremities/Musculoskelatal: no calf tenderness, no pedal edema Neurologic/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, no motor/sensory deficits, alert, normal mood/affect, oriented x 3 Skin: no rash Diagnostics Laboratory Results Results Past 24 Hours Test 09/16/17 19:45 09/16/17 23:00 Range/Units White Blood Count 7.78 4.8-10.8 K/uL Red Blood Count 5.26 4.7-6.1 M/uL Hemoglobin 16.4 14.0-18.0 g/dL Hematocrit 45.7 42-52 % Mean Corpuscular Volume 86.9 80-100 fL Mean Corpuscular Hemoglobin 31.2 25-34 pg Mean Corpuscular Hemoglobin Concent 35.9 32-36 g/dl Platelet Count 193 130-400 K/uL Mean Platelet Volume 9.3 7.4-10.4 fL Neutrophils (%) (Auto) 70.9 % Lymphocytes (%) (Auto) 17.9 % Monocytes (%) (Auto) 10.2 % Eosinophils (%) (Auto) 0.4 % Basophils (%) (Auto) 0.3 % Neutrophils # (Auto) 5.53 1.4-6.5 K/uL Lymphocytes # (Auto) 1.39 1.2-3.4 K/uL Monocytes # (Auto) 0.79 0.11-0.59 K/uL Eosinophils # (Auto) 0.03 0-0.5 K/uL Basophils # (Auto) 0.02 0-0.2 K/uL RDW Standard Deviation 42.8 36.4-46.3 fL RDW Coefficient of Variation 13.6 11.5-14.5 % Immature Granulocyte % (Auto) 0.3 % Immature Granulocyte # (Auto) 0.02 0.00-0.02 K/uL Sodium Level 133 136-145 mmol/L Potassium Level 3.4 3.5-5.1 mmol/L Chloride Level 101 98-107 mmol/L Carbon Dioxide Level 26 21-32 mmol/L Anion Gap 6.0 3-11 mmol/L Blood Urea Nitrogen 11 7-18 mg/dl Creatinine 1.29 0.60-1.40 mg/dl Est Creatinine Clear Calc Drug Dose 94.3 ml/min Estimated GFR () 73.9 Estimated GFR (Non- 63.8 BUN/Creatinine Ratio 8.6 10-20 Random Glucose 117 70-99 mg/dl Calcium Level 9.0 8.5-10.1 mg/dl Magnesium Level 1.9 1.8-2.4 mg/dl Total Bilirubin 0.4 0.2-1 mg/dl Aspartate Amino Transf (AST/SGOT) 49 15-37 U/L Alanine Aminotransferase (ALT/SGPT) 64 12-78 U/L Alkaline Phosphatase 78 45-117 U/L C-Reactive Protein 0.36 0-0.29 mg/dl Total Protein 7.7 6.4-8.2 gm/dl Albumin 4.1 3.4-5.0 gm/dl Globulin 3.6 2.5-4.0 gm/dl Albumin/Globulin Ratio 1.1 0.9-2 Thyroid Stimulating Hormone (TSH) 94.000 0.300-4.500 uIu/ml Free Thyroxine 1.02 0.80-1.60 ng/dl Chemistry Specimen Hemolysis Diagnostic Radiology MRI OF THE BRAIN COMBO CLINICAL HISTORY: Diplopia. History of metastatic melanoma. COMPARISON STUDY: MRI of the brain dated 02/02/2017. CT of the brain dated 04/25/2017. TECHNIQUE: MRI of the brain was performed utilizing various T1 and T2-weighted sequences in the axial, sagittal, and coronal planes. Contrast-enhanced sequences were acquired following the administration of 12 cc of Gadavist. FINDINGS: Brain parenchyma: The brain parenchyma is normal in appearance. There is no hemorrhage or mass effect. There is no restricted diffusion to suggest acute ischemia. No enhancing mass lesion is identified on the postcontrast images. Chavez-white matter differentiation is preserved. No extra-axial fluid collection is seen. The cerebellar tonsils are normal in configuration. Ventricles, sulci, and cisterns: Normal in configuration. Pituitary and sella: Unremarkable. Intracranial vasculature: Normal flow voids are maintained at the skull base. Orbits: The bony orbits are grossly intact. Orbital contents are normal in appearance. Sinuses and mastoids: Trace mucosal thickening is seen in the left maxillary antrum. The remaining paranasal sinuses and mastoid air cells are clear. Calvarium: Unremarkable. Cervical cord: Partially visualized cervical spinal cord is normal in morphology and signal intensity. IMPRESSION: No acute intracranial abnormality. Impression Assessment and Plan 51 yo M with hypothyroidism, on chemo for metastatic melanoma, who presents with 2 weeks of diplopia - ddx includes: side effect from chemo affecting his thyroid, causing diplopia vs paraneoplastic process. Diplopia in setting of metastatic melanoma - Continue to monitor, still determining underlying cause - Consult his oncologist, Dr Amaral - Attempted to order labwork for paraneoplastic causes, which seem to be unavailable in our system. Day team to please r/v with oncology. Subclinical hypothyroidism - Will provide 5mcg of T3 today and continue tomorrow AM with his home dose of Synthroid, 150mcg. - Consult Endocrinology Depression/Anxiety - Continue Wellbutrin Diarrhea - Continue Lomotil VTE: Heparin Dispo: Admit to Med/Surg, 4E Code status: Full Resident Physician Supervision Note: I was present with Dr. Cueva during the history and exam. I discussed the case with the resident and agree with the findings and plan as documented in the note. Any exceptions or clarifications are listed here: 51 y/o M Hx Melanoma and hypothyroidism - has had steadily climbing TSH levels which have not responded to Synthroid. Presenting with diplopia, L ptosis and reported slurred speech which was clear at time of admission. An MRI with contrast was obtained in the outpt setting and did not reveal any related abnormalities. Initial labs are notable for a TSH of > 90 and a normal T4,T3, free T4. Additionally, the pt does not display some typical hypothyroid symptoms such as bradycardia or constipation. OE S1,2 R CTAB NT, ND No CCE Neuro - R ptosis present - subjective diplopia - speech is clear - no motor deficits are present P: High TSH - possibly with related symptoms - he remains on Synthroid which has not been effective in lowering TSH although his hormone levels are otherwise normal. His pituitary may be affected and unable to respond to normal feedback. On review of literature it appears that these numbers are most likely to occur in context of a thyroid malignancy - he is on immune therapy for his Melanoma and we would need to determine if this is a possible effect of his medication. Lastly, high TSH in itself can apparently have ophthalmic and cardiac consequences and he may benefit from a B chandra prior to DC We have provided him with a low dose of T3 in addition to Synthroid pending evaluation by the endocrine service. We will discuss the above with his oncologist and endocrine for treatment feedback as there is no clearly defined protocol to address the above numbers. He may ultimately require transfer to a tertiary center. We will also obtain a paraneoplastic panel as an alternative diagnosis to his neuro symptoms without additional clinical hypoparathyroidism. Documented By: Giovanni Valentine Level of Care Med/Surg VTE Prophylaxis VTE Risk Assessment Done? Y/N: Yes Risk Level: Moderate Resident Tracking Resident Involvement: Resident Care Provided Care Provided: [facility]
[2017-09-17] MEDS ORDERED: LIOTHYRONINE SODIUM 5 MCG TAB PO ONE (00:13)
[2017-09-17] MEDS ORDERED: POLYETHYLENE (MIRALAX) 17 GM PACK PO PRN (00:15)
[2017-09-17 00:20] VITALS: BP 135/91; PULSE 84; TEMP 36.3; O2SAT 97; Ht 182.9 cm; Wt 120.9 kg
[2017-09-17] MEDS ORDERED: INFLUENZA VIRUS QUAD VACCINE 0.5 ML SYR IM. ONE (01:45)
[2017-09-17] MEDS ORDERED: INFLUENZA ADMINISTRATION CHARGE ONE (01:45)
[2017-09-17 04:16] VITALS: BP 127/87; PULSE 86; TEMP 36.7; O2SAT 96
[2017-09-17] MEDS ORDERED: LEVOTHYROXINE 150 MCG TAB PO SCH (06:30)
[2017-09-17 07:23] VITALS: BP 135/91; PULSE 95; TEMP 36.6; O2SAT 96
[2017-09-17] MEDS ORDERED: POTASSIUM CHLORIDE 20 MEQ TABCR PO SCH (08:00)
[2017-09-17] MEDS ORDERED: TRIAMTERENE/HCTZ 37.5/25MG CAP PO SCH (08:00)
[2017-09-17] MEDS ORDERED: PANTOprazole SOD 40 MG TAB PO SCH (08:00)
[2017-09-17] MEDS ORDERED: MULTIVITAMIN TAB PO SCH (08:00)
[2017-09-17] MEDS ORDERED: LIOTHYRONINE SODIUM 5 MCG TAB PO SCH (09:00)
[2017-09-17] MEDS ORDERED: HEPARIN SOD 5000 UNIT/0.5 ML CARP SQ SCH (09:00)
[2017-09-17] MEDS ORDERED: BuPROPion SR 150 MG TABCR PO SCH (09:00)
[2017-09-17 11:20] VITALS: BP 130/89; PULSE 97; TEMP 36.7; O2SAT 94
--- NOTE | 2017-09-17 12:46 | Oncology Consultation ---
Oncology/Heme Consultation Date of Consultation: Sep 17, 2017. Attending Physician: Giovanni Valentine M.D. Reason for Consultation: History of resected melanoma now presents with diplopia and dysarthria as well as dysphasia History of Present Illness Mr. Ferrer is a delightful 51-year-old gentleman with a history of metastatic malignant melanoma. He is status post resection. The patient was first seen in December of this year at [facility] status post wedge resection of a remotely diagnosed right lower lobe mass. Prior to that he had been noted to have a small pulmonary nodule that was followed radiographically. This nodule appeared to be growing and he was taken to the operating room where a wedge resection was performed and was positive for suspected melanoma. No definite primary skin lesion was ever found. He was placed on an adjuvant program including ipilimumab with his last dose being at the end of May. Along the way a PET scan was done that showed FDG uptake in the mediastinum. In July and biopsy was done of these mediastinal lymph nodes with the diagnosis confirming actually sarcoidosis. He had had difficulties with tolerating ipilimumab and it was decided to discontinue that drug and begin another form of immunotherapy namely Pembrolizumab. His last treatment was September 03 with this drug. He has received 3 doses of this drug. In reviewing his thyroid functions his TSH was just slightly abnormal on the very first day of [place] or 1 month after receiving his fourth dose of ipilimumab. Since that time there has been a steep increase in his TSH and then more recently in the past few weeks he is complaint of double vision. He denies significant headache. Last night an MRI of the brain was unremarkable 9 pituitary did not appear edematous). His vitals are stable. His TSH continues to climb. There has been along the way an increase in his Synthroid dosing coordinated by an overage shortage and damage clerk that he has seen in the [facility]. Remainder of his general labs and CBC is acceptable Past Medical/Surgical History Medical Problems: (1) Compression fracture Status: Acute (2) Headache Status: Acute (3) Lung nodule Status: Acute (4) Medication adverse effect Status: Acute (5) Melanoma Status: Acute (6) Pancreatitis Status: Acute Family History Cancer Diabetes mellitus Gallbladder disease Heart disease Social History Smoking Status: Never Smoker Marital Status: Housing Status: lives with family Occupation Status: employed Allergies Coded Allergies: Prednisone (Verified Adverse Reaction, Intermediate, CAN NOT TOLERATE,- GETS VERY ANGRY,FEELS AWFUL, 09/16/17) Home Medications Scheduled Bupropion Hcl (Bupropion Hcl Er), 150 MG PO BID17 Dexamethasone (Decadron), 4 TAB PO BID Lansoprazole (Prevacid), 30 MG PO QAM Levothyroxine Sodium (Synthroid), 150 MCG PO QAM Levothyroxine Sodium (Levothyroxine Sodium), 1 TAB PO QAM Multivitamin (Multivitamin), 1 TAB PO DAILY Potassium Chloride (Potassium Chloride ER), 20 MEQ PO DAILY Triamterene/Hctz (Dyazide 37.5MG/25MG), 1 CAP PO QAM Scheduled PRN Diphenoxylate/Atropine (Lomotil), 1-2 TAB PO Q8 PRN for Fexofenadine Hcl (Yesenia Allergy), 180 MG PO DAILY PRN for Oxycodone Ir (Roxicodone Ir), 10 MG PO DAILY PRN for Current Inpatient Medications Current Inpatient Medications Medications (Trade) Dose Ordered Sig/Darin Route Start Time Stop Time Status Last Admin Dose Admin Gadobutrol (Gadavist) 12 mmol UD PRN IV 09/16/17 22:00 09/20/17 21:59 Acetaminophen (Tylenol Tab) 650 mg Q4H PRN PO 09/16/17 23:30 10/16/17 23:29 Al Hydrox/Mg Hydrox/Simethicone (Maalox Max Susp) 15 ml Q4H PRN PO 09/16/17 23:30 10/16/17 23:29 Magnesium Hydroxide (Milk Of Magnesia Susp) 30 ml Q6H PRN PO 09/16/17 23:30 10/16/17 23:29 Polyethylene (Miralax Powder Packet) 17 gm DAILY PRN PO 09/17/17 00:15 10/17/17 00:14 Ondansetron HCl (Zofran Inj) 4 mg Q6H PRN IV 09/16/17 23:30 10/16/17 23:29 Heparin Sodium (Porcine) (Heparin Sq 5000 Unit/0.5ml) 5,000 unit Q12H SQ 09/17/17 09:00 10/17/17 08:59 Bupropion HCl (Wellbutrin-Sr Tab) 150 mg BID17 PO 09/17/17 09:00 10/17/17 08:59 09/17/17 08:00 150 MG Diphenoxylate HCl/ Atropine (Lomotil Tab) 2 tab Q8 PRN PO 09/16/17 23:30 10/16/17 23:29 09/17/17 11:59 2 TAB Fexofenadine HCl (Yesenia Tab) 180 mg DAILY PRN PO 09/16/17 23:30 10/16/17 23:29 Levothyroxine Sodium (Synthroid Tab) 150 mcg DAILYBB PO 09/17/17 06:30 10/17/17 06:59 09/17/17 06:02 150 MCG Multivitamins (Multivitamin Tab) 1 tab DAILY PO 09/17/17 08:00 10/17/17 08:59 09/17/17 08:00 1 TAB Oxycodone HCl (Roxicodone Immediate Rel Tab) 10 mg DAILY PRN PO 09/16/17 23:30 09/30/17 23:29 Triamterene/HCTZ (Dyazide 37.5/25 Mg Cap) 1 cap QAM PO 09/17/17 08:00 10/17/17 08:59 09/17/17 08:00 1 CAP Pantoprazole Sodium (Protonix Tab) 40 mg QAM PO 09/17/17 08:00 10/17/17 07:59 Potassium Chloride (Klor-Con Tab) 20 meq DAILY PO 09/17/17 08:00 10/17/17 08:59 09/17/17 08:00 20 MEQ Liothyronine Sodium (Cytomel Tab) 5 mcg QAM PO 09/17/17 09:00 10/17/17 08:59 09/17/17 08:00 5 MCG Review of Systems Constitutional: Negative for night sweats, or fever Eyes: Worsening double vision over the past few weeks at least ENT: Negative for epistaxis, nasal discharge, sore throat, or deafness Cardiovascular: Negative for chest pain, palpitations, dizziness, diaphoresis Respiratory: Negative for new shortness of breath,hemoptysis, or purulent cough Gastrointestinal: Negative for diarrhea, hematemesis, melena, nausea, vomiting , or dyspepsia. States he has had some this trouble that sounds like a form of dysphagia. Integumentary (skin): Negative for rash or jaundice discoloration Genitourinary: Negative for urinary frequency, hematuria, or dysuria Neurological: Negative for weakness, seizure activity, headache, or dizziness Lymphatic/Hematologic: Negative for petechiae, bleeding or new adenopathy Musculoskeletal: Negative for new joint or back pain Allergic/Immunologic: Negative for unusual rash or pruritis. Physical Exam Date Time Temp Pulse Resp B/P (MAP) Pulse Ox O2 Delivery O2 Flow Rate FiO2 09/17/17 12:00 Room Air 09/17/17 11:20 36.7 97 18 130/89 (103) 94 09/17/17 07:23 36.6 95 18 135/91 (106) 96 Room Air 09/17/17 04:16 36.7 86 18 127/87 (100) 96 Room Air 09/17/17 00:20 36.3 84 18 135/91 97 Room Air 09/16/17 23:48 80 16 136/89 95 Room Air 09/16/17 21:58 84 18 142/94 96 Room Air 09/16/17 20:56 78 18 132/96 96 Room Air 09/16/17 18:46 37.1 96 20 154/104 93 Room Air Constitutional: vitals are stable. Eyes: Eyes are SARI EOMI without conjuctival erythema or icterus. He does have some disconjugate gazefindings with corollary double vision when looking left or right. ENT: External examination was negative for masses. Neck: Negative for masses or palpable thyromegaly Respiratory: Lung sounds were generally clear bilaterally Cardiovascular: Heart was RRR without significant murmur, gallops aoe rubs Gastrointestinal: No palpable hepatic or splenomegaly. The abdomen was soft with normal bowel sounds. Lymphatic system: there was no palpable peripheral lymphadenopathy Musculoskeletal System: The musculoskeletal system seemed concordant with age. Skin: The skin was negative for jaundice. Neurologic exam: The exam was negative for any focal findings. Deep tendon reflexes were equal and symmetrical. Psychiatric exam: Was essentially negative with normal mood and effect. Extremities: Negative for edema or erythema Laboratory Results Last 24 Hours Test 09/16/17 19:45 09/16/17 23:00 White Blood Count 7.78 K/uL Red Blood Count 5.26 M/uL Hemoglobin 16.4 g/dL Hematocrit 45.7 % Mean Corpuscular Volume 86.9 fL Mean Corpuscular Hemoglobin 31.2 pg Mean Corpuscular Hemoglobin Concent 35.9 g/dl Platelet Count 193 K/uL Mean Platelet Volume 9.3 fL Neutrophils (%) (Auto) 70.9 % Lymphocytes (%) (Auto) 17.9 % Monocytes (%) (Auto) 10.2 % Eosinophils (%) (Auto) 0.4 % Basophils (%) (Auto) 0.3 % Neutrophils # (Auto) 5.53 K/uL Lymphocytes # (Auto) 1.39 K/uL Monocytes # (Auto) 0.79 K/uL Eosinophils # (Auto) 0.03 K/uL Basophils # (Auto) 0.02 K/uL RDW Standard Deviation 42.8 fL RDW Coefficient of Variation 13.6 % Immature Granulocyte % (Auto) 0.3 % Immature Granulocyte # (Auto) 0.02 K/uL Sodium Level 133 mmol/L Potassium Level 3.4 mmol/L Chloride Level 101 mmol/L Carbon Dioxide Level 26 mmol/L Anion Gap 6.0 mmol/L Blood Urea Nitrogen 11 mg/dl Creatinine 1.29 mg/dl Est Creatinine Clear Calc Drug Dose 94.3 ml/min Estimated GFR () 73.9 Estimated GFR (Non- 63.8 BUN/Creatinine Ratio 8.6 Random Glucose 117 mg/dl Calcium Level 9.0 mg/dl Magnesium Level 1.9 mg/dl Total Bilirubin 0.4 mg/dl Aspartate Amino Transf (AST/SGOT) 49 U/L Alanine Aminotransferase (ALT/SGPT) 64 U/L Alkaline Phosphatase 78 U/L C-Reactive Protein 0.36 mg/dl Total Protein 7.7 gm/dl Albumin 4.1 gm/dl Globulin 3.6 gm/dl Albumin/Globulin Ratio 1.1 Thyroid Stimulating Hormone (TSH) 94.000 uIu/ml Free Thyroxine 1.02 ng/dl Chemistry Specimen Hemolysis Prothrombin Time 11.0 SECONDS Prothromb Time International Ratio 1.0 Free Triiodothyronine 2.39 pg/ml Assessment & Plan Hypothyroidism with a marked accelerating increase in TSH. He has been supplemented with increasing doses of Synthroid and his T3 and T4 are now lower limits of normal. I suspect that his vision and most all of his symptoms are related to thyroid malfunction. I do not believe that he has hypophysitis. Treatment that should be centered around thyroid supplementation. I understand an endocrine consult is pending but the holiday may interfere with that consultation taking place today. He does appear clinically stable other than was been stated above. We will try to reach out to his overage shortage and damage clerk in [place] for a appointment to occur in the very near future. I suspect then that this accelerated change in his TSH and worsening thyroid function is on the basis primarily of the immunotherapy whether it be ipilimumab or Pembro or combination of both. The literature tend to comment that treatment of immunotherapy side effects should also include steroids although it is questionable as to whether steroids will particularly help with the hypothyroidism secondary immunotherapy. He states he does have trouble tolerating prednisone and perhaps then Decadron 4 mg twice daily po would be a fair place to begin at this point. There real baseline treatment has to be however further thyroid supplementation. His immunotherapy therapy will need to be suspended for now. NB: 1:15 PM -I have been unable to reach his overage shortage and damage clerk in [place]. He appears clinically quite stable and I believe that we can discharge him but with an increased dose of Synthroid. He had been taking 150 mcg daily and I have asked him to increase this to 175 mcg daily and a prescription was offered to the patient. In addition we will add to that Decadron 4 mg twice daily to be tapered in our clinic. He does have a follow-up in our clinic in 1 week. I reviewed this with the hospitalist this afternoon in addition.
[2017-09-17] MEDS ORDERED: LEVO175T3 PO (13:13)
[2017-09-17] MEDS ORDERED: DXM/4 PO (13:13)
--- NOTE | 2017-09-17 13:21 | Discharge Instructions ---
Discharge Instructions Date of Service Sep 17, 2017. Admission Reason for Admission: Diplopia, Metastatic Melanoma, Chemo Related Discharge Discharge Diagnosis / Problem: Chemotherapy induced diplopia Discharge Goals Goal(s): Decrease discomfort, Improve function, Therapeutic intervention Activity Recommendations Activity Limitations: as noted below Lifting Limitations: gradually increase as tolerated Exercise/Sports Limitations: gradually increase as tolerated Shower/Bathe: no limitations Driving or Machine Use: no limitations . Instructions / Follow-Up Instructions / Follow-Up You were seen in the hospital for worsening double vision that is worse with eye movements. During your admission you were found to have very high levels of Thyroid home that is believed to be secondary to chemotherapy. Other imaging and labwork evaluation was negative for any disease findings. You were seen by Dr. Torres as well who made some medication changes noted below. Medications: - Decadron 4mg tablet twice daily --> This is a steroid medication that will be titrated down by Dr. Torres at follow up - Synthroid 175mcg tablet every morning --> This is an increased level of thyroid medication from your previous dosage due to you lab findings - Resume all other home medications Follow Ups: - Follow up with your Mine Engineering Supervisor as soon as possible. Call the office to attempt to schedule an appointment earlier than your current appointment in 2 weeks - Follow up with Dr. Torres regarding your double vision treatment with steroids and current chemotherapy regimen - Follow up with your primary care doctor in the next 2-3 days to discuss the medication changes If you present with any worsening symptoms, headaches, vision changes, blurry vision, or any other concerning symptoms please return to the hospital or be evaluated by a physician as soon as possible Current Hospital Diet Patient's current hospital diet: Regular Diet Discharge Diet Recommended Diet: Regular Diet Pending Studies Studies pending at discharge: no Medical Emergencies . Who to Call and When: Medical Emergencies: If at any time you feel your situation is an emergency, please call 911 immediately. . Non-Emergent Contact Non-Emergency issues call your: Primary Care Provider . . "Provider Documentation" section prepared by Edil Philip. . VTE Core Measure Inpt VTE Proph given/why not?: Unfractionated heparin SQ
--- NOTE | 2017-09-17 13:30 | Discharge Summary ---
Discharge Summary Date of Service Sep 17, 2017. Discharge Summary Admission Date: Sep 16, 2017 at 23:26 Discharge Date: Sep 17, 2017 Discharge Disposition: Home Principal Diagnosis: Chemotherapy induced hypothyroidism Problems/Secondary Diagnoses: Diplopia Medication Reconciliation New Medications: Dexamethasone (Decadron) 4 Mg Tab 4 TAB PO BID for 2 Days, #8 TAB Levothyroxine Sodium (Levothyroxine Sodium) 175 Mcg Tab 1 TAB PO QAM for 30 Days, #30 TAB 5 Refills Continued Medications: Bupropion Hcl (Bupropion Hcl Er) 150 Mg Tab 150 MG PO BID17 Diphenoxylate/Atropine (Lomotil) Tab 1-2 TAB PO Q8 PRN for , TAB Fexofenadine Hcl (Yesenia Allergy) 180 Mg Tab 180 MG PO DAILY PRN for , TAB Lansoprazole (Prevacid) 30 Mg Capcr 30 MG PO QAM, CAP Multivitamin (Multivitamin) Tab 1 TAB PO DAILY, TAB Oxycodone Ir (Roxicodone Ir) 5 Mg Tab 10 MG PO DAILY PRN for , TAB Potassium Chloride (Potassium Chloride ER) 20 Meq Tab 20 MEQ PO DAILY for PRN Triamterene/Hctz (Dyazide 37.5MG/25MG) Cap 1 CAP PO QAM, CAP Discontinued Medications: Levothyroxine Sodium (Synthroid) 150 Mcg Tab 150 MCG PO QAM Discharge Exam Review of Systems: Constitutional: No fever, No chills, No weight loss, No fatigue Eyes: + worsening of vision, + diplopia Respiratory: No cough, No shortness of breath Cardiovascular: No chest pain, No palpitations Abdomen: No pain, No nausea, No vomiting, No diarrhea Neurologic: No paralysis, No weakness, No numbness/tingling Psychiatric: No depression symptoms, No anxiety, No substance abuse Physical Exam: General Appearance: WD/WN, no apparent distress Eyes: normal inspection, sclerae normal Neck: supple, thyroid normal, no carotid bruits Respiratory/Chest: chest non-tender, lungs clear, normal breath sounds Cardiovascular: regular rate, rhythm, no edema, no gallop, no murmur Abdomen / GI: normal bowel sounds, non tender, soft Neurologic/Psychiatric: station helper II-XII nml as tested, no motor/sensory deficits , alert, normal mood/affect, normal reflexes, oriented x 3 Lymphatic: no adenopathy Hospital Course Patient was admitted to the hospital yesterday evening with worsening diplopia that was constant and worse with eye movements. He was evaluated by his opthalmologist yesterday and no acute abnormalities were found. During workup in the ED he was found to have a TSH of 94 with a FT4 of 1.02 and Ft3 of 2.39. His remaining labs all appeared within normal limits. He was also treated with a dose of Cytomel 5mcg. An Brain MRI was also performed that showed no intracranial/ pituitary abnormalities. The patient was evaluated by Oncology for his hypothyroidism and it was determined that the thyroid changes and diplopia were most likely secondary to his Keytruda treatment. He was prescribed Decadron 4mg BID and an increased Synthroid dose of 175mcg. He will follow up with both Dr. Torres and his slip cover estimator in [place] as an outpatient. Total Time Spent: Greater than 30 minutes This includes examination of the patient, discharge planning, medication reconciliation, and communication with other providers. Discharge Instructions Please refer to the electronic Patient Visit Report (Discharge Instructions) for additional information. Additional Copies To Fidel Montelongo D.O. Resident Tracking Resident Involvement: Resident Care Provided Care Provided: [facility]
[2017-09-17 13:31] VITALS: BP 130/89; PULSE 97; TEMP 36.7; O2SAT 94
== END 2017-09-17 14:21 | disposition home or self-care (01) | DRG 645 ==
LOC: C.EDB 18:45 → C.4E 23:26 → ENRESERV 23:36
PROVIDERS: ADMIT Internal Medicine; ATTEND Internal Medicine
DX: E03.2 Hypothyroidism due to medicaments and other exogenous substances (principal); T45.1X5A Adverse effect of antineoplastic and immunosuppressive drugs, initial encounter; H53.2 Diplopia; R47.1 Dysarthria and anarthria; R13.10 Dysphagia, unspecified; C43.9 Malignant melanoma of skin, unspecified; D86.9 Sarcoidosis, unspecified; F32.9 Major depressive disorder, single episode, unspecified; F41.9 Anxiety disorder, unspecified; Z79.899 Other long term (current) drug therapy; Z85.118 Personal history of other malignant neoplasm of bronchus and lung; Z83.3 Family history of diabetes mellitus

== ENCOUNTER → 2017-09-24 | Outpatient (CLI) | payer OTHER ==
[~2017-09-24] MED LIST changes: -BENZ100C84 PO; +DIPH-416 PO; +LEVO175T3 PO; -LEVO50TA6 PO; +OXYC1TAB3 PO
== END | disposition home or self-care (01) ==
LOC: C.LAB1850 14:03
PROVIDERS: ATTEND Physician Assistant
DX: E03.9 Hypothyroidism, unspecified (principal)

== ENCOUNTER → 2017-11-12 | Outpatient (CLI) | payer OTHER | END | disposition home or self-care (01) | LOC: C.LAB 09:06 | PROVIDERS: ATTEND Internal Medicine Endocrinology, Diabetes & Metabolism | DX: E03.9 Hypothyroidism, unspecified (principal); E06.3 Autoimmune thyroiditis ==

== ENCOUNTER → 2017-11-23 | Outpatient (CLI) | payer OTHER ==
[~2017-11-23] MED LIST changes: +OPTIRAY 320 IV PRN
--- NOTE | 2017-11-23 07:50 | DIAGNOSTIC IMAGING REPORT ---
CT SCAN OF THE ABDOMEN AND PELVIS WITH IV CONTRAST CLINICAL HISTORY: Metastatic melanoma. COMPARISON STUDY: Abdominal CT dated 03/04/2017. PET/CT dated 07/13/2017. TECHNIQUE: Following the IV administration of 93 cc of Optiray 320, CT scan of the abdomen and pelvis is performed from the lung bases to the proximal femora. Images are reviewed in the axial, sagittal, and coronal planes. IV contrast was administered without complication. A dose lowering technique was utilized adhering to the principles of ALARA. FINDINGS: Lung bases: The heart is normal in size and there is trace pericardial effusion. Postoperative change is noted in the right lung and a small volume of fluid is present the right lung base. There is also trace left pleural effusion. Scarring versus atelectasis is present in the lower lobes. There is a small hiatal hernia. Liver: The contrast-enhanced liver is normal in size, contour, and attenuation. There is no intrahepatic biliary ductal dilatation. The hepatic veins and portal veins are patent. There is a 3.6 cm lesion in the right lobe of the liver seen on image #87. A subcentimeter hepatic cyst is noted on image #51. Gallbladder: Surgically absent noting clips in the gallbladder fossa. Spleen: Normal in size and attenuation. Pancreas: Unremarkable. Adrenal glands: Unremarkable. Kidneys: The contrast enhanced kidneys demonstrate mild cortical atrophy and are without hydronephrosis. The kidneys enhance symmetrically. A 4.0 cm cyst is incidentally noted in the left kidney. Abdominal vasculature: The abdominal aorta is normal in course and caliber. Bowel: There is mild colonic fecal retention. No bowel obstruction is seen. The appendix is well-visualized and normal. Peritoneum: There is no intraperitoneal free air or abdominal ascites. There is a small fat-containing umbilical hernia. Lymphadenopathy: None. Pelvic viscera: The bladder, prostate, and seminal vesicles are normal as visualized. A small right-sided hydrocele is suggested. Skeletal structures: No lytic or blastic lesions are seen. There is a superior endplate compression deformity of L4. IMPRESSION: 1. There is no evidence of progressive metastatic disease in the abdomen or pelvis. 2. A 3.6 cm indeterminant right hepatic lobe lesion is unchanged over several prior studies. 3. Postoperative change is again noted at the right lung base. Trace pleural fluid is again seen at both lung bases. 4. 4. Additional findings as above. Electronically signed by: Paramjit Augustine M.D. 11/23/2017 7:49 AM Dictated Date/Time: 11/23/2017 7:39 AM
--- NOTE | 2017-11-23 07:56 | DIAGNOSTIC IMAGING REPORT ---
CT OF THE CHEST WITH IV CONTRAST CLINICAL HISTORY: Melanoma. COMPARISON STUDY: Chest CT March 04, 2017 and PET/CT July 13, 2017. TECHNIQUE: Following IV administration of 93 mL of Optiray-320, helical axial images of the chest were obtained. Sagittal and coronal reconstructions were viewed as well as maximal intensity projections on an independent 3-D workstation. A dose lowering technique was utilized adhering to the principles of ALARA. CT DOSE: 2691.59 mGy.cm FINDINGS: The previously described mediastinal lymph nodes shown on PET/CT of July 13, 2017 have mildly decreased in size. An index AP window node measures 1.6 x 0.7 cm. It previously measured 1.7 x 0.9 cm. An index right paratracheal node measures 1.4 x 0.9 cm. It previously measured 1.5 x 1.4 cm. Bilateral hilar lymph nodes are suboptimally assessed by prior PET. A mildly enlarged left hilar lymph node measures 1.6 x 1 cm. This is similar to CT of March 04, 2017. There are stable postoperative findings consistent with a right lower lobectomy. A trace right pleural effusion is noted. There is also a trace left pleural effusion. Size of the heart is normal. Trace pericardial effusion is noted. This has developed since prior PET. No suspicious pulmonary nodules are present. No suspicious osseous lesions are present. A 3.5 cm right hepatic lobe lesion remains unchanged. This is better depicted on the abdominal CT. IMPRESSION: 1. Interval decrease in size of mediastinal lymph nodes since PET/CT of July 13, 2017. The previously described bilateral hilar lymphadenopathy is difficult to compare to previous PET however this is likely stable or improved. 2. No evidence for progressive metastatic disease within the chest. 3. Trace pericardial effusion. 4. Status post right lower lobectomy. Electronically signed by: Delvis Stoddard M.D. 11/23/2017 7:54 AM Dictated Date/Time: 11/23/2017 7:39 AM
== END | disposition home or self-care (01) ==
LOC: C.CTS 06:44
PROVIDERS: ATTEND Internal Medicine Hematology & Oncology
DX: C43.9 Malignant melanoma of skin, unspecified (principal)

== ENCOUNTER → 2017-12-09 | Outpatient (CLI) | payer OTHER ==
[~2017-12-09] MED LIST changes: -OPTIRAY 320 IV PRN
== END ==
LOC: C.LAB1850 12:24
PROVIDERS: ATTEND Physician Assistant
DX: H53.2 Diplopia (principal); E03.9 Hypothyroidism, unspecified

== ENCOUNTER → 2017-12-11 | Outpatient (CLI) | payer OTHER ==
[~2017-12-11] MED LIST changes: +LEVO200T6 PO
[2017-12-16 18:37] LABS: TSI <89 % baseline (<140)
== END | disposition home or self-care (01) ==
LOC: C.LAB 15:08
PROVIDERS: ATTEND Ophthalmology Ophthalmic Plastic and Reconstructive Surgery
DX: E05.00 Thyrotoxicosis with diffuse goiter without thyrotoxic crisis or storm (principal)

== ENCOUNTER → 2017-12-30 | Day surgery (SDC) | payer OTHER ==
[~2017-12-30] VITALS: Ht 182.9 cm; Wt 124.0 kg
[~2017-12-30] MED LIST changes: +COSYNTROPIN INJ 1 MCG in SYRINGE 0 ML IV SCH
[2017-12-30 07:54] VITALS: BP 132/88; PULSE 88; TEMP 36.6; O2SAT 96; Ht 182.9 cm; Wt 124.0 kg
[2017-12-30 08:59] VITALS: BP 133/86; PULSE 82; TEMP 36.7
[2017-12-30 09:28] VITALS: BP 152/99; PULSE 82; TEMP 36.8
== END | disposition home or self-care (01) ==
LOC: C.MTU 07:25
PROVIDERS: ATTEND Internal Medicine Endocrinology, Diabetes & Metabolism
DX: R68.89 Other general symptoms and signs (principal); R53.83 Other fatigue; R42 Dizziness and giddiness

== ENCOUNTER → 2018-02-08 | Outpatient (CLI) | payer OTHER ==
[~2018-02-08] MED LIST changes: -COSYNTROPIN INJ 1 MCG in SYRINGE 0 ML IV SCH; -LEVO175T3 PO
== END | disposition home or self-care (01) ==
LOC: C.LAB 16:29
PROVIDERS: ATTEND Internal Medicine Endocrinology, Diabetes & Metabolism
DX: D86.9 Sarcoidosis, unspecified (principal)

== ENCOUNTER → 2018-03-05 | Outpatient (CLI) | payer OTHER | END | disposition home or self-care (01) | LOC: C.LAB1850 12:25 | PROVIDERS: ATTEND Internal Medicine Endocrinology, Diabetes & Metabolism | DX: E03.9 Hypothyroidism, unspecified (principal); E06.3 Autoimmune thyroiditis; G70.00 Myasthenia gravis without (acute) exacerbation ==

== ENCOUNTER → 2018-04-07 | Outpatient (CLI) | payer OTHER ==
[~2018-04-07] MED LIST changes: +AMOX875T PO; +LEVO300T31 PO; +OXYC-90 PO; -OXYC1TAB3 PO
--- NOTE | 2018-04-07 14:28 | DIAGNOSTIC IMAGING REPORT ---
CT ORBITS/SELLA/TEMP WITHOUT CT DOSE: CLINICAL HISTORY: THYROID EYE DISEASE TECHNIQUE: Helical images were acquired in the transverse plane. Sagittal and coronal reformatted images were reviewed A dose lowering technique was utilized adhering to the principles of ALARA. COMPARISON STUDY: MRI the brain performed August 2017 FINDINGS: No abnormalities of either globe are visualized. There are no retroconal masses. There is no significant extraocular muscle enlargement.. IMPRESSION: 1. No intra or extraconal masses identified 2. No evidence of proptosis 3. No evidence of significant extraocular muscle enlargement Electronically signed by: Andrew Dudley M.D. 04/07/2018 2:27 PM Dictated Date/Time: 04/07/2018 2:22 PM
--- NOTE | 2018-04-13 08:40 | CODING QUERY NO DIAGNOSIS ---
TREATMENT RENDERED WITHOUT A DIAGNOSIS To promote full compliance with coding requirements relating to patient care, physician participation is requested in all cases of recordist uncertainty. Please assist us with providing a diagnosis/symptom for the test(s) below: A diagnosis/symptom was not documented on your Order. A valid diagnosis/symptom is required to bill all insurances. Please remember that we are unable to code a diagnosis of rule out, probable, possible, questionable, or suspected. Tests that require a diagnosis: DOS: 04/07/18 * CT ORBITS/SELLA/TEMP DIAGNOSIS: Provider Signature: Date: Thank you Serena Wagner [employer] Information Management Once completed, please kindly fax back to [phone] For questions please call [phone]
== END | disposition home or self-care (01) ==
LOC: C.CTS 13:45
PROVIDERS: ATTEND Specialist
DX: Z01.89 Encounter for other specified special examinations (principal)

== ENCOUNTER → 2018-05-28 | Outpatient (CLI) | payer OTHER ==
[~2018-05-28] MED LIST changes: -AMOX875T PO; -LEVO200T6 PO; -OXYC-90 PO; -POTA-65 PO
== END | disposition home or self-care (01) ==
LOC: C.LAB1850 14:00
PROVIDERS: ATTEND Internal Medicine Endocrinology, Diabetes & Metabolism
DX: E03.9 Hypothyroidism, unspecified (principal)

== ENCOUNTER 2022-11-16 13:27 | Observation (INO) ==
[2022-11-16] MEDS ORDERED: SODIUM CHLORIDE 0.9% 1000ML 1,000 ML IV ONE (14:08)
[2022-11-16 14:18] LABS: Basophils # (auto) 0.02 K/uL (0-0.2); Basophils % (auto) 0.4 %; Eosinophils # (auto) 0.06 K/uL (0-0.50); Eosinophils % (auto) 1.3 %; Hematocrit (blood only) 47.1 % (40.1-51.0); Hemoglobin 16.6 g/dl (14.0-18.0); Immature Granulocytes # (auto) 0.01 K/uL (0.00-0.02); Immature Granulocytes % (auto) 0.2 %; Lymphocytes # (auto) 0.77 K/uL (1.2-3.4); Lymphocytes % (auto) 16.3 %; Mean Corpuscular Hemoglobin 30.7 pg (25.0-34.0); Mean Corpuscular Hgb Conc 35.2 g/dL (32.0-36.0); Mean Corpuscular Volume 87.2 fL (80.0-100.0); Mean Platelet Volume 9.7 fL (9.4-12.4); Monocytes # (auto) 0.45 K/uL (0.24-0.82); Monocytes % (auto) 9.5 %; Neutrophils # (auto) 3.41 K/uL (1.4-6.5); Neutrophils % (auto) 72.3 %; Platelet Count 151 K/uL (130-400); RDW Coefficient of Variation 12.6 % (11.5-14.5); RDW Standard Deviation 39.9 fL (36.4-46.3); White Blood Count 4.72 K/ul (4.8-10.8)
[2022-11-16 14:38] LABS: Albumin Globulin Ratio 1.7 (0.9-2); Albumin Level 4.2 gm/dl (3.4-5.0); BUN Creatinine Ratio 18.3 (10-20); Bilirubin,Total 0.6 mg/dl (0.2-1.0); Calcium 9.6 mg/dl (8.5-10.1); Est GFR (Non-African American) 70.7 ml/min; Globulin 2.5 gm/dl (2.5-4.0); Magnesium 1.8 mg/dl (1.7-2.4); Potassium 4.2 mmol/L (3.5-5.1); Total Protein 6.7 gm/dl (6.0-8.3)
[2022-11-16 14:44] LABS: INR 1.1 (0.9-1.1); Partial Thromboplastin Time 27.1 Seconds (21.0-31.0); Prothrombin Time 11.3 Seconds (9.0-12.0); Troponin I High Sensitivity 5.2 pg/ml (0-20)
--- NOTE | 2022-11-16 14:45 | XRay Report ---
XR chest 1V portable HISTORY: 56 years-old Male neuro deficit, acute stroke suspected acute stroke like symptoms COMPARISON: Chest CT 10/07/2022 TECHNIQUE: AP view of the chest FINDINGS: Cardiomediastinal and hilar silhouettes are unchanged. No pneumothorax, pleural effusion, airspace co nsolidation or overt pulmonary edema. Bones of the chest appear grossly intact. IMPRESSION: No acute process. ACT 112: Negative or not required by law. The above report was generated using voice recognition software. It may contain grammatical, syntax o r spelling errors. Electronically signed by: Edil Felix M.D. 11/16/2022 2:43 PM
[2022-11-16 14:53] LABS: Thyroid Stimulating Hormone 0.652 uIu/ml (0.300-4.500)
[2022-11-16] MEDS ORDERED: OPTIRAY 320 500ml IV ONE (14:54)
[2022-11-16 14:55] LABS: T4 Free Thyroxine 1.8 ng/dl (0.61-1.60)
--- NOTE | 2022-11-16 15:17 | CT Scan Report ---
CT angio head w con, CT angio neck with con, CT head/brain wo con CLINICAL HISTORY: 56 years-old Male with neuro deficit, acute stroke suspected. Acute strokelike s ymptoms COMPARISON STUDY: Brain MRI 11/18/2021 TECHNIQUE: Unenhanced axial CT scan of the brain is performed. Subsequently, following the IV adminis tration of 115 cc of Optiray, CT angiogram of the head and neck was performed from the aortic arch to the skull apex. Images are reviewed in the axial, sagittal, and coronal planes. 3-D MIPS images are created and assessed. IV contrast was administered without complication. All measurements were obtain ed according to NASCET criteria. A dose lowering technique was utilized adhering to the principles of ALARA. CT DOSE: 1348.54 mGy.cm FINDINGS: CT BRAIN: There is no acute intracranial hemorrhage, midline shift, hydrocephalus, intracranial mass, territori al ischemia or abnormal extra-axial collections. No abnormal intra-axial or extra-axial enhancement. Mastoid air cells and middle ear cavities are clear. No calvarial fracture. Paranasal sinuses are cl ear. CT ANGIOGRAM OF THE HEAD AND NECK: Three-vessel morphology of the thoracic aortic arch. Patency of the innominate and imaged subclavian arteries. Patent common carotid arteries. There is mild atherosclerotic plaque of the left carotid bu lb without significant stenosis. The internal carotid arteries are patent. The bilateral anterior and middle cerebral arteries are also patent. The vertebral arteries are patent. The distal left vertebr al artery terminates into the PICA. Diminutive basilar artery is patent. origin of the left pos terior cerebral artery. Moderate focal luminal narrowing of the P2 segment of the left BIAS CUTTING MACHINE OPERATOR VERTICAL on image 1 17. There is no aneurysm, high-grade stenosis, or proximal branch occlusion identified. Dural sinuses appear patent. Lung apices are clear. No pneumothorax. No acute fracture identified. Discectomy changes at C5-C6. IMPRESSION: 1. No acute intracranial abnormality. 2. Moderate focal short segment area of stenosis involves the P2 segment of the left posterior cerebr al artery. Otherwise unremarkable CTA of the head and neck. ACT 112: Negative or not required by law. The above report was generated using voice recognition software. It may contain grammatical, syntax o r spelling errors. Electronically signed by: Edil Felix M.D. 11/16/2022 3:14 PM
--- NOTE | 2022-11-16 18:25 | Emergency Department Note ---
Impression & Plan Stroke-like symptoms, Dysarthria, Aphasia, Hypertension ED Provider Note NAME: EUGENIE GARNETT AGE: 56 SEX: M ARRIVES VIA: Walk-In INFORMANT: Patient ED PROVIDER(S): Vik Mark MD CHIEF COMPLAINT: TIA-Stroke symptoms. Aphasia, Dysarthria (resolved) PLAN: Disposition: Admit MEDICAL DECISION MAKING: The patient is a pleasant 56-year-old gentleman with a past medical history of hypothyroidism, metastatic melanoma, diabetes, hypertension, sarcoidosis who pre sents to the emergency department via private vehicle, accompanied by his as well as his daughter, a nazia cortes respiratory therapist, for evaluation of 30 minutes of strokelike symptoms where he reports having garbled speech and word finding difficulty that occurred abruptly and additionally reports symptoms of flashes in his field of vision which she reports has occurred in the past but has never had the degree of garbled speech that he had today. He reports the symptoms resolved spontaneously though he did receive 2 low-dose aspirin from his . Prior today he denies any fevers, chills, cough, congestion, GI or symptoms. He does correlate his symptoms with his recent fasting and exercise program where he will limit his calories to 500 for 3-4 days. He also adds that he may be dehydrated as well. On arrival, the patient is well-appearing in no acute distress, afebrile with stable vital signs. He appears clinically dry. He has no focal neurologic deficits at this time. EKG without overt acute ischemia. CXR negative for acute cardiopulmonary process. WBC 4K nonspecific. H/H and platelets within normal limits. Chemistry without metabolic acidosis. Electrolytes and LFTs without abnormalities. High- sensitivity troponin 5.2, within normal limits. TSH 0.6, within normal limits. Free T3 within normal limits. Free T4 marginally above normal at 1.8. CT of the head and CTA of the head neck were performed and was negative for ICH or ischemia however did show moderate focal short segment stenosis of the P2 segment of the left posterior cerebral artery. Otherwise CTA was unremarkable. Given the patient's CT imaging that does show evidence of cerebrovascular disease he did agree with plan for admission for further stroke evaluation. Case was discussed with Dr. Olmos, [facility], who will evaluate the patient for admission. Triage Nursing notes reviewed and agree them. Prior medical records reviewed Vital Signs: reviewed Differential diagnosis: Infection, dehydration, metabolic abnormality, hypo/hyperglycemia, electrolyte disturbance, anemia, hypoxia, cardiac sources, intracerebral event, toxicologic, neurologic, as well as other pathologies. ER treatment provided: See below. Diagnostics interpreted by me: ECG: Normal sinus rhythm, 82 bpm, no ectopy, no overt ST elevation or depression, QTC 439, QRS 92 Cardiac Monitoring: An order for continuous cardiac monitoring was placed and demonstrated Normal sinus rhythm, 82 bpm, no ectopy. Laboratory studies: See below Imaging studies: See below Consultation(s): Case was discussed with Dr. Olmos, [facility] hospitalist, who will evaluate the patient for admission. HPI: The patient is a pleasant 56-year-old gentleman with a past medical history of hypothyroidism, metastatic melanoma, diabetes, hypertension, sarcoidosis who presents to the emergency department via private vehicle, accompanied by his as well as his daughter, a nazia cortes respiratory therapist, for evaluation of 30 minutes of strokelike symptoms where he reports having garbled speech and word finding difficulty that occurred abruptly and additionally reports symptoms of flashes in his field of vision which she reports has occurred in the past but has never had the degree of garbled speech that he had today. He reports the symptoms resolved spontaneously though he did receive 2 low-dose aspirin from his . Prior today he denies any fevers, chills, cough, congestion, GI or symptoms. He does correlate his symptoms with his recent fasting and exercise program where he will limit his calories to 500 for 3-4 days. He also adds that he may be dehydrated as well. ROS: See above HPI for pertinent positives & negatives. A total of 10 systems reviewed and were otherwise negative. VITALS:See Below PHYSICAL EXAMINATION: GENERAL: Awake, alert, well-appearing, in no distress HENT: Normocephalic, atraumatic. Oropharynx with dry mucous membranes and otherwise unremarkable. EYES: Normal conjunctiva. Sclera non-icteric. EOMI. No nystamgus. PEARRL. NECK: Supple. No nuchal rigidity. FROM. No JVD. RESPIRATORY: Clear to auscultation. CARDIAC: Regular rate, normal rhythm. Extremities warm and well perfused. Pulses equal. ABDOMEN: Soft, non-distended. No tenderness to palpation. No rebound or guarding. No masses. RECTAL: Deferred. MUSCULOSKELETAL: Chest examination reveals no tenderness. The back is symmetrical on inspection without obvious abnormality. There is no CVA tenderness to palpation. No joint edema. LOWER EXTREMITIES: Calves are equal size bilaterally and non-tender. No edema. No discoloration. NEURO: Normal sensorium. No sensory or motor deficits noted. 5/5 strength and SILT x 4 extremities. Cerebellar function intact including [id number], alternating palms, [id number]. SKIN: No rash or jaundice noted. Vik Mark MD Past Med/Surg History Medical History Degenerative disc disease CERVICAL DISC DISEASE Diabetes type 1, uncontrolled Difficult intubation VIDEO MEDIASTINOSCOPY WITH LYMPH NODE BIOPSY= 07/29/17= GLIDESCOPE #4, ETT 8.0 AT [facility] GERD (gastroesophageal reflux disease) Hypothyroidism Metastatic melanoma HX OF RIGHT LOWER LOBECTOMY Mild non proliferative diabetic retinopathy Obesity Sleep apnea CPAP Surgical History History of cholecystectomy History of colonoscopy History of esophagogastroduodenoscopy (EGD) History of lobectomy of lung RIGHT LOWER LOBE 2/2 METASTATIC MELANOMA History of lung surgery VIDEO MEDIASTINOSCOPY WITH LYMPH NODE BIOPSY History of tonsillectomy Social History Smoking Status: Never smoker Second Hand Exposure: No; Hx Alcohol Use: No Hx Substance Use: No Preferred Language: Hebrew Communication Ability: Effective Visual Impairment: No Limitations Sawmill Worker Required: No Beliefs That Will Affect Care: None Current Living Situation: Spouse Feels Safe at Home: Yes Assistive Devices: Glasses Allergies Allergies Allergy/AdvReac Type Severity Reaction Status Date / Time prednisone AdvReac Intermediate CAN NOT Verified 11/16/22 17:04 TOLERATE,-GETS VERY ANGRY,FEELS AWFUL Home Meds Home Medications Medication Instructions Recorded Confirmed levothyroxine 200 mcg tablet 200 mcg PO DAILY 06/19/20 11/16/22 alprazolam 0.5 mg tablet 0.5 - 1 mg PO Q6H PRN Anxiety 11/16/22 11/16/22 cholecalciferol (vitamin D3) 25 0 mcg PO DAILY 11/16/22 11/16/22 mcg (1,000 unit) capsule (Vitamin D3) magnesium 250 mg tablet 250 mg PO DAILY 11/16/22 11/16/22 valsartan 80 1 tab PO DAILY 11/16/22 11/16/22 mg-hydrochlorothiazide 12.5 mg tablet vitamin K2 90 mcg capsule 0 mcg PO DAILY 11/16/22 11/16/22 Results & Data (ED) Vital Signs Vital Signs - 24 hr 11/16/22 13:31 11/16/22 14:28 11/16/22 15:04 Temperature 37.2 C Temperature Source Temporal Artery Scan Pulse Rate 90 Pulse Rate [Apical] 79 Pulse Rate from SpO2 Sensor Respiratory Rate 18 18 Blood Pressure 166/107 H Blood Pressure [Left Arm] 144/82 H Blood Pressure Mean 126 Blood Pressure Mean [Left Arm] 102 Pulse Oximetry 97 95 99 Oxygen Delivery Method Room Air Room Air Room Air Sepsis Recent Fever Within 48 Hours No Sepsis New/Unexplained Change in Mental Status N/A Sepsis Action Taken by Nursing No Action Required 11/16/22 14:36 11/16/22 14:42 11/16/22 14:42 Temperature Temperature Source Pulse Rate 81 78 Pulse Rate [Apical] Pulse Rate from SpO2 Sensor 81 78 Respiratory Rate 19 19 Blood Pressure 138/84 Blood Pressure [Left Arm] Blood Pressure Mean 102 Blood Pressure Mean [Left Arm] Pulse Oximetry 96 96 Oxygen Delivery Method Sepsis Recent Fever Within 48 Hours Sepsis New/Unexplained Change in Mental Status Sepsis Action Taken by Nursing 11/16/22 15:03 11/16/22 15:03 11/16/22 15:30 Temperature Temperature Source Pulse Rate 85 Pulse Rate [Apical] Pulse Rate from SpO2 Sensor 85 Respiratory Rate 16 Blood Pressure 144/82 H 133/91 Blood Pressure [Left Arm] Blood Pressure Mean 102 105 Blood Pressure Mean [Left Arm] Pulse Oximetry 97 Oxygen Delivery Method Sepsis Recent Fever Within 48 Hours Sepsis New/Unexplained Change in Mental Status Sepsis Action Taken by Nursing 11/16/22 15:30 11/16/22 15:41 11/16/22 15:41 Temperature Temperature Source Pulse Rate 77 82 Pulse Rate [Apical] Pulse Rate from SpO2 Sensor 75 84 Respiratory Rate 18 16 Blood Pressure 142/95 H Blood Pressure [Left Arm] Blood Pressure Mean 110 Blood Pressure Mean [Left Arm] Pulse Oximetry 97 97 Oxygen Delivery Method Sepsis Recent Fever Within 48 Hours Sepsis New/Unexplained Change in Mental Status Sepsis Action Taken by Nursing 11/16/22 16:00 11/16/22 16:00 11/16/22 16:30 Temperature Temperature Source Pulse Rate 79 Pulse Rate [Apical] Pulse Rate from SpO2 Sensor 80 Respiratory Rate 14 18 Blood Pressure 137/91 133/86 Blood Pressure [Left Arm] Blood Pressure Mean 106 101 Blood Pressure Mean [Left Arm] Pulse Oximetry 94 96 Oxygen Delivery Method Sepsis Recent Fever Within 48 Hours Sepsis New/Unexplained Change in Mental Status Sepsis Action Taken by Nursing 11/16/22 16:30 11/16/22 17:00 11/16/22 17:24 Temperature Temperature Source Pulse Rate 82 77 83 Pulse Rate [Apical] Pulse Rate from SpO2 Sensor 81 83 Respiratory Rate 11 L 22 19 Blood Pressure Blood Pressure [Left Arm] Blood Pressure Mean Blood Pressure Mean [Left Arm] Pulse Oximetry 96 97 Oxygen Delivery Method Sepsis Recent Fever Within 48 Hours Sepsis New/Unexplained Change in Mental Status Sepsis Action Taken by Nursing 11/16/22 17:24 Temperature Temperature Source Pulse Rate Pulse Rate [Apical] Pulse Rate from SpO2 Sensor Respiratory Rate Blood Pressure 149/101 H Blood Pressure [Left Arm] Blood Pressure Mean 117 Blood Pressure Mean [Left Arm] Pulse Oximetry Oxygen Delivery Method Sepsis Recent Fever Within 48 Hours Sepsis New/Unexplained Change in Mental Status Sepsis Action Taken by Nursing Laboratory Data Attestation: I reviewed the patient's lab results. 11/16/22 14:10 11/16/22 14:10 Lab Results 11/16/22 11/16/22 11/16/22 Range/Units 14:10 14:10 14:10 WBC 4.72 L (4.8-10.8) K/ul RBC 5.40 (4.63-6.08) M/uL Hgb 16.6 (14.0-18.0) g/dl Hct 47.1 (40.1-51.0) % MCV 87.2 (80.0-100.0) fL MCH 30.7 (25.0-34.0) pg MCHC 35.2 (32.0-36.0) g/dL RDW Std Deviation 39.9 (36.4-46.3) fL RDW Coeff of Nidia 12.6 (11.5-14.5) % Plt Count 151 (130-400) K/uL MPV 9.7 (9.4-12.4) fL Immature Gran % (Auto) 0.2 % Neut % (Auto) 72.3 % Lymph % (Auto) 16.3 % [place] % (Auto) 9.5 % Eos % (Auto) 1.3 % Baso % (Auto) 0.4 % Neut # (Auto) 3.41 (1.4-6.5) K/uL Lymph # (Auto) 0.77 L (1.2-3.4) K/uL [place] # (Auto) 0.45 (0.24-0.82) K/uL Eos # (Auto) 0.06 (0-0.50) K/uL Baso # (Auto) 0.02 (0-0.2) K/uL Immature Gran # (Auto) 0.01 (0.00-0.02) K/uL PT 11.3 (9.0-12.0) Seconds INR 1.1 (0.9-1.1) APTT 27.1 (21.0-31.0) Seconds PTT Ratio 1.0 Sodium 134 L (136-145) mmol/L Potassium 4.2 (3.5-5.1) mmol/L Chloride 99 (98-107) mmol/L Carbon Dioxide 25 (21-32) mmol/L Anion Gap 10 (3-11) BUN 21 (6-23) mg/dl Creatinine 1.15 (0.6-1.4) mg/dl Est Cr Clr Drug Dosing 93.0 ml/min Est GFR ( Amer) 82.0 ml/min Est GFR (Non-Af Amer) 70.7 ml/min BUN/Creatinine Ratio 18.3 (10-20) Glucose 103 H (70-99(Fasting)) mg/dl POC Glucose (70-99) mg/dl Calcium 9.6 (8.5-10.1) mg/dl Magnesium 1.8 (1.7-2.4) mg/dl Total Bilirubin 0.6 (0.2-1.0) mg/dl AST 17 (13-39) U/L ALT 17 (7-52) U/L Alkaline Phosphatase 66 (34-104) U/L Troponin I High Sens 5.2 (0-20) pg/ml Total Protein 6.7 (6.0-8.3) gm/dl Albumin 4.2 (3.4-5.0) gm/dl Globulin 2.5 (2.5-4.0) gm/dl Albumin/Globulin Ratio 1.7 (0.9-2) TSH (0.300-4.500) uIu/ml Free T4 (0.61-1.60) ng/dl Free T3 (2.3-4.2) pg/ml SARS-CoV-2, RNA, NAAT (NEGATIVE) 11/16/22 11/16/22 11/16/22 Range/Units 14:10 14:10 14:29 WBC (4.8-10.8) K/ul RBC (4.63-6.08) M/uL Hgb (14.0-18.0) g/dl Hct (40.1-51.0) % MCV (80.0-100.0) fL MCH (25.0-34.0) pg MCHC (32.0-36.0) g/dL RDW Std Deviation (36.4-46.3) fL RDW Coeff of Nidia (11.5-14.5) % Plt Count (130-400) K/uL MPV (9.4-12.4) fL Immature Gran % (Auto) % Neut % (Auto) % Lymph % (Auto) % [place] % (Auto) % Eos % (Auto) % Baso % (Auto) % Neut # (Auto) (1.4-6.5) K/uL Lymph # (Auto) (1.2-3.4) K/uL [place] # (Auto) (0.24-0.82) K/uL Eos # (Auto) (0-0.50) K/uL Baso # (Auto) (0-0.2) K/uL Immature Gran # (Auto) (0.00-0.02) K/uL PT (9.0-12.0) Seconds INR (0.9-1.1) APTT (21.0-31.0) Seconds PTT Ratio Sodium (136-145) mmol/L Potassium (3.5-5.1) mmol/L Chloride (98-107) mmol/L Carbon Dioxide (21-32) mmol/L Anion Gap (3-11) BUN (6-23) mg/dl Creatinine (0.6-1.4) mg/dl Est Cr Clr Drug Dosing ml/min Est GFR ( Amer) ml/min Est GFR (Non-Af Amer) ml/min BUN/Creatinine Ratio (10-20) Glucose (70-99(Fasting)) mg/dl POC Glucose 99 (70-99) mg/dl Calcium (8.5-10.1) mg/dl Magnesium (1.7-2.4) mg/dl Total Bilirubin (0.2-1.0) mg/dl AST (13-39) U/L ALT (7-52) U/L Alkaline Phosphatase (34-104) U/L Troponin I High Sens (0-20) pg/ml Total Protein (6.0-8.3) gm/dl Albumin (3.4-5.0) gm/dl Globulin (2.5-4.0) gm/dl Albumin/Globulin Ratio (0.9-2) TSH 0.652 (0.300-4.500) uIu/ml Free T4 1.80 H (0.61-1.60) ng/dl Free T3 3.21 (2.3-4.2) pg/ml SARS-CoV-2, RNA, NAAT (NEGATIVE) 11/16/22 Range/Units 18:31 WBC (4.8-10.8) K/ul RBC (4.63-6.08) M/uL Hgb (14.0-18.0) g/dl Hct (40.1-51.0) % MCV (80.0-100.0) fL MCH (25.0-34.0) pg MCHC (32.0-36.0) g/dL RDW Std Deviation (36.4-46.3) fL RDW Coeff of Nidia (11.5-14.5) % Plt Count (130-400) K/uL MPV (9.4-12.4) fL Immature Gran % (Auto) % Neut % (Auto) % Lymph % (Auto) % [place] % (Auto) % Eos % (Auto) % Baso % (Auto) % Neut # (Auto) (1.4-6.5) K/uL Lymph # (Auto) (1.2-3.4) K/uL [place] # (Auto) (0.24-0.82) K/uL Eos # (Auto) (0-0.50) K/uL Baso # (Auto) (0-0.2) K/uL Immature Gran # (Auto) (0.00-0.02) K/uL PT (9.0-12.0) Seconds INR (0.9-1.1) APTT (21.0-31.0) Seconds PTT Ratio Sodium (136-145) mmol/L Potassium (3.5-5.1) mmol/L Chloride (98-107) mmol/L Carbon Dioxide (21-32) mmol/L Anion Gap (3-11) BUN (6-23) mg/dl Creatinine (0.6-1.4) mg/dl Est Cr Clr Drug Dosing ml/min Est GFR ( Amer) ml/min Est GFR (Non-Af Amer) ml/min BUN/Creatinine Ratio (10-20) Glucose (70-99(Fasting)) mg/dl POC Glucose (70-99) mg/dl Calcium (8.5-10.1) mg/dl Magnesium (1.7-2.4) mg/dl Total Bilirubin (0.2-1.0) mg/dl AST (13-39) U/L ALT (7-52) U/L Alkaline Phosphatase (34-104) U/L Troponin I High Sens (0-20) pg/ml Total Protein (6.0-8.3) gm/dl Albumin (3.4-5.0) gm/dl Globulin (2.5-4.0) gm/dl Albumin/Globulin Ratio (0.9-2) TSH (0.300-4.500) uIu/ml Free T4 (0.61-1.60) ng/dl Free T3 (2.3-4.2) pg/ml SARS-CoV-2, RNA, NAAT NEGATIVE (NEGATIVE) Administered Medications Discontinued Medications Sodium Chloride (Nss 1000ml) 1,000 mls @ 999 mls/hr IV .Q1H1M ONE Stop: 11/16/22 15:08 Last Infusion: 11/16/22 16:14 Dose: 0 mls/hr Documented By: Admin: 11/16/22 14:24 Dose: 999 mls/hr Documented By: DOMI Ioversol (Optiray 320 500ml) 115 ml IV ONCE ONE Stop: 11/16/22 14:55 Last Admin: 11/16/22 14:55 Dose: 115 ml Documented By: DIAMOND Imaging Data Radiologist's Impression: Chest X-Ray 11/16/22 13:54 XR chest 1V portable HISTORY: 56 years-old Male neuro deficit, acute stroke suspected acute stroke like symptoms COMPARISON: Chest CT 10/07/2022 TECHNIQUE: AP view of the chest FINDINGS: Cardiomediastinal and hilar silhouettes are unchanged. No pneumothorax, pleural effusion, airspace consolidation or overt pulmonary edema. Bones of the chest appear grossly intact. IMPRESSION: No acute process. ACT 112: Negative or not required by law. The above report was generated using voice recognition software. It may contain grammatical, syntax or spelling errors. Electronically signed by: Edil Felix M.D. 11/16/2022 2:[address] 11/16/22 13:54 CT angio head w con, CT angio neck with con, CT head/brain wo con CLINICAL HISTORY: 56 years-old Male with neuro deficit, acute stroke suspected. Acute strokelike symptoms COMPARISON STUDY: Brain MRI 11/18/2021 TECHNIQUE: Unenhanced axial CT scan of the brain is performed. Subsequently, fo llowing the IV administration of 115 cc of Optiray, CT angiogram of the head and neck was performed from the aortic arch to the skull apex. Images are reviewed in the axial, sagittal, and coronal planes. 3-D MIPS images are created and assessed. IV contrast was administered without complication. All measurements were obtained according to NASCET criteria. A dose lowering technique was utilized adhering to the principles of ALARA. CT DOSE: 1348.54 mGy.cm FINDINGS: CT BRAIN: There is no acute intracranial hemorrhage, midline shift, hydrocephalus, intracranial mass, territorial ischemia or abnormal extra-axial collections. No abnormal intra-axial or extra-axial enhancement. Mastoid air cells and middle ear cavities are clear. No calvarial fracture. Paranasal sinuses are clear. CT ANGIOGRAM OF THE HEAD AND NECK: Three-vessel morphology of the thoracic aortic arch. Patency of the innominate and imaged subclavian arteries. Patent common carotid arteries. There is mild atherosclerotic plaque of the left carotid bulb without significant stenosis. The internal carotid arteries are patent. The bilateral anterior and middle cerebral arteries are also patent. The vertebral arteries are patent. The distal left vertebral artery terminates into the PICA. Diminutive basilar artery is patent. origin of the left posterior cerebral artery. Moderate focal luminal narrowing of the P2 segment of the left CARE COMPANION on image 117. There is no aneurysm, high-grade stenosis, or proximal branch occlusion identified. Dural sinuses appear patent. Lung apices are clear. No pneumothorax. No acute fracture identified. Discectomy changes at C5-C6. IMPRESSION: 1. No acute intracranial abnormality. 2. Moderate focal short segment area of stenosis involves the P2 segment of the left posterior cerebral artery. Otherwise unremarkable CTA of the head and neck. ACT 112: Negative or not required by law. The above report was generated using voice recognition software. It may contain grammatical, syntax or spelling errors. Electronically signed by: Edil Felix M.D. 11/16/2022 3:14 PM Head CTA 11/16/22 13:54 CT angio head w con, CT angio neck with con, CT head/brain wo con CLINICAL HISTORY: 56 years-old Male with neuro deficit, acute stroke suspected. Acute strokelike symptoms COMPARISON STUDY: Brain MRI 11/18/2021 TECHNIQUE: Unenhanced axial CT scan of the brain is performed. Subsequently, following the IV administration of 115 cc of Optiray, CT angiogram of the head and neck was performed from the aortic arch to the skull apex. Images are reviewed in the axial, sagittal, and coronal planes. 3-D MIPS images are created and assessed. IV contrast was administered without complication. All measurements were obtained according to NASCET criteria. A dose lowering technique was utilized adhering to the principles of ALARA. CT DOSE: 1348.54 mGy.cm FINDINGS: CT BRAIN: There is no acute intracranial hemorrhage, midline shift, hydrocephalus, intracranial mass, territorial ischemia or abnormal extra-axial collections. No abnormal intra-axial or extra-axial enhancement. Mastoid air cells and middle ear cavities are clear. No calvarial fracture. Paranasal sinuses are clear. CT ANGIOGRAM OF THE HEAD AND NECK: Three-vessel morphology of the thoracic aortic arch. Patency of the innominate and imaged subclavian arteries. Patent common carotid arteries. There is mild atherosclerotic plaque of the left carotid bulb without significant stenosis. The internal carotid arteries are patent. The bilateral anterior and middle cerebral arteries are also patent. The vertebral arteries are patent. The distal left vertebral artery terminates into the PICA. Diminutive basilar artery is patent. origin of the left posterior cerebral artery. Moderate focal luminal narrowing of the P2 segment of the left CARE COMPANION on image 117. There is no aneurysm, high-grade stenosis, or proximal branch occlusion identified. Dural sinuses appear patent. Lung apices are clear. No pneumothorax. No acute fracture identified. Discectomy changes at C5-C6. IMPRESSION: 1. No acute intracranial abnormality. 2. Moderate focal short segment area of stenosis involves the P2 segment of the left posterior cerebral artery. Otherwise unremarkable CTA of the head and neck. ACT 112: Negative or not required by law. The above report was generated using voice recognition software. It may contain grammatical, syntax or spelling errors. Electronically signed by: Edil Felix M.D. 11/16/2022 3:14 PM Neck CTA 11/16/22 13:54 CT angio head w con, CT angio neck with con, CT head/brain wo con CLINICAL HISTORY: 56 years-old Male with neuro deficit, acute stroke suspected. Acute strokelike symptoms COMPARISON STUDY: Brain MRI 11/18/2021 TECHNIQUE: Unenhanced axial CT scan of the brain is performed. Subsequently, following the IV administration of 115 cc of Optiray, CT angiogram of the head and neck was performed from the aortic arch to the skull apex. Images are reviewed in the axial, sagittal, and coronal planes. 3-D MIPS images are created and assessed. IV contrast was administered without complication. All measurements were obtained according to NASCET criteria. A dose lowering technique was utilized adhering to the principles of ALARA. CT DOSE: 1348.54 mGy.cm FINDINGS: CT BRAIN: There is no acute intracranial hemorrhage, midline shift, hydrocephalus, intracranial mass, territorial ischemia or abnormal extra-axial collections. No abnormal intra-axial or extra-axial enhancement. Mastoid air cells and middle ear cavities are clear. No calvarial fracture. Paranasal sinuses are clear. CT ANGIOGRAM OF THE HEAD AND NECK: Three-vessel morphology of the thoracic aortic arch. Patency of the innominate and imaged subclavian arteries. Patent common carotid arteries. There is mild atherosclerotic plaque of the left carotid bulb without significant stenosis. The internal carotid arteries are patent. The bilateral anterior and middle cerebral arteries are also patent. The vertebral arteries are patent. The distal left vertebral artery terminates into the PICA. Diminutive basilar artery is patent. origin of the left posterior cerebral artery. Moderate focal luminal narrowing of the P2 segment of the left CARE COMPANION on image 117. There is no aneurysm, high-grade stenosis, or proximal branch occlusion identified. Dural sinuses appear patent. Lung apices are clear. No pneumothorax. No acute fracture identified. Discectomy changes at C5-C6. IMPRESSION: 1. No acute intracranial abnormality. 2. Moderate focal short segment area of stenosis involves the P2 segment of the left posterior cerebral artery. Otherwise unremarkable CTA of the head and neck. ACT 112: Negative or not required by law. The above report was generated using voice recognition software. It may contain grammatical, syntax or spelling errors. Electronically signed by: Edil Felix M.D. 11/16/2022 3:14 PM Discharge Plan Visit Data Chief Complaint: Stroke/CVA Symptoms Stated Complaint: DOUBLE VISION, SLURRED SPEECH, COORDINATION ED Provider: Vik Mark Discharge Problem: Stroke-like symptoms, Dysarthria, Aphasia, Hypertension Forms Stand Alone Forms: [facility] [email or web address] Prescriptions Prescriptions: No Action levothyroxine 200 mcg tablet 200 mcg PO DAILY Dose Instruction: take 1 tab daily with a 25mcg tablet PO DAILY; valsartan-hydrochlorothiazide 80-12.5 mg tablet 1 tab PO DAILY alprazolam 0.5 mg tablet 0.5 - 1 mg PO Q6H PRN (Reason: Anxiety) magnesium 250 mg Tablet 250 mg PO DAILY cholecalciferol (vitamin D3) [Vitamin D3] 25 mcg (1,000 unit) Capsule 0 mcg PO DAILY Rx Instructions: PT UNSURE OF STRENGTH vitamin K2 90 mcg Capsule 0 mcg PO DAILY Rx Instructions: PT UNSURE OF STRENGTH Referrals Referrals: Fidel Montelongo DO [Primary Care Provider] -
[2022-11-16] MEDS ORDERED: ASPIRIN 81 MG CHEW PO STA (22:31)
--- NOTE | 2022-11-16 23:02 | History and Physical Report ---
DATE OF ADMISSION: 11/16/2022. CHIEF COMPLAINT: Stroke-like symptoms. 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 The patient says the last few days, he is fasting to lose his weight and also recently started on alprazolam, took couple of doses, and today around noontime, he had some flashes in the left eye, then he had difficulty speaking, garbled speech for about 20 minutes, that resolved, which prompted him to come to the ER. Currently, symptoms are resolved. Initial workup is mostly unremarkable. Resting comfortably, hemodynamically stable. is in the room. The patient denies any headache. Current vision is okay. No earache, no runny nose, no sore throat, no cough, no difficulty swallowing. No chest pain, no shortness of breath, no nausea, no abdominal pain. Normal bowel and bladder movements. Says he is ambulating fine. ALLERGIES: PREDNISONE. PAST MEDICAL HISTORY: As mentioned above. PAST SURGICAL HISTORY: Laparoscopic cholecystectomy. MEDICATIONS: Currently the patient is on alprazolam 0.5 to 1 mg p.o. q. 6 hours p.r.n., vitamin D daily, levothyroxine 200 mcg p.o. daily, magnesium 250 mg p.o. daily, valsartan/hydrochlorothiazide 80/12.5 mg p.o. daily. FAMILY HISTORY: Significant for father has diabetes; brother has heart attacks; mother has heart disease. SOCIAL HISTORY: . No smoking. Alcohol once in a while. No drug use. REVIEW OF SYSTEMS: As per HPI. Rest of the review of systems is negative. PHYSICAL EXAMINATION: GENERAL: The patient is of alert and oriented. The patient is obese, not in acute distress. VITAL SIGNS: Temperature 37.2, pulse 83, respiratory rate 19, blood pressure 149/101, oxygen 97% on room air. HEENT: Pupils equal, round and reactive to light. Oral mucosa moist. NECK: No JVD, no neck masses. CARDIOVASCULAR: S1 and S2 heard. Regular rate and rhythm. No murmur, no gallop. RESPIRATORY SYSTEM: Normal AP diameter. No accessory muscle use. No wheezing, no crackles. ABDOMEN: Soft, bowel sounds present, nontender, no distention. CENTRAL NERVOUS SYSTEM: Alert and oriented. Speech is clear. No facial droop. Can raise his eyebrows, can smile. No pronator drift. Coordination of movements normal. Power 5/5 in all extremities. Sensation is intact. EXTREMITIES: No edema, no erythema. LABORATORY DATA: WBC 4.7, hemoglobin 16.6, hematocrit 47.1, platelets 151. PT 11.3, INR 1.1, APTT 27.1. Sodium 134, potassium 4.2, chloride 99, CO2 of 25, BUN 21, creatinine 1.1, serum glucose 103, calcium 9.6, magnesium 1.8, total bilirubin 0.6, AST 17, ALT 17, alkaline phosphatase 66. Troponin I high sensitivity 5.2. TSH is 0.6, free T4 of 1.8, free T3 of 3.2. SARS-CoV-2 rapid test negative. IMAGING DATA: CTA of the head and CTA of the head and neck findings are showing no acute intracranial abnormality. Moderate focal short segment area of stenosis involving the P2 segment of the left posterior cerebral artery, otherwise unremarkable CTA of the head and neck. EKG: Showing normal sinus rhythm at a rate of 82, no significant change was found. ASSESSMENT AND PLAN: This is a 56-year-old male who presents with stroke-like symptoms. 1. Stroke-like symptoms: Initial workup is unremarkable except for a moderate focal short segment area of stenosis involving the P2 segment of the left posterior cerebral artery. Will do full stroke workup with MRI head, echo,speech evaluation, PT/ OT evaluation. Consult neurology in the a.m. for further recommendation. 2.obesity: Needs counseling. 3. History of melanoma: Status post chemotherapy, could not complete the course because of side effects. Under observation since 2017. 4. Hypothyroidism post-chemotherapy: On levothyroxine. Follows with endocrinology. Free T4 level is high, will repeat the levels. 5. History of hypertension: Continue home medications. Allow for permissive hypertension for now. 6. Obstructive sleep apnea: On CPAP at bedtime. 7. Deep venous thrombosis prophylaxis: Sequential compression devices for now. DISPOSITION: Admit to tele floor. PT/OT prior to discharge. Social service to help with discharge planning. Level 1 full code. Job ID: [id number] [facility]
[2022-11-16] MEDS ORDERED: ACETAMINOPHEN 325 MG TAB PO PRN (23:45)
[2022-11-16] MEDS ORDERED: SODIUM CHLORIDE 0.9% 1000ML 1,000 ML IV SCH (23:45)
[2022-11-16] MEDS ORDERED: PHARMACIST DISCHARGE MED REC CONSULT PRN (23:45)
[2022-11-16] MEDS ORDERED: NITROGLYCERIN SL 0.4 MG/TAB TAB SL PRN (23:45)
[2022-11-16] MEDS ORDERED: ALPRAZolam 0.5 MG TABLET PO PRN (23:45)
[2022-11-16] MEDS ORDERED: POLYETHYLENE (MIRALAX) 17 GM PACK PO PRN (23:45)
[2022-11-17] MEDS ORDERED: ASPIRIN 81 MG CHEW PO STA
[2022-11-17] MEDS ORDERED: GADOBUTROL 15ML VIAL IV ONE ×2 (01:21→01:22)
[2022-11-17] MEDS ORDERED: LEVOTHYROXINE SODIUM 200 MCG TABLET PO SCH (06:30)
--- NOTE | 2022-11-17 07:45 | Magnetic Resonance Report ---
MR brain wo/w con CLINICAL HISTORY: stroke like symptoms TECHNIQUE: Multiplanar and multisequence MR images of the brain were obtained prior to and following administration of gadolinium contrast. Comparison: None available at the time of this dictation. FINDINGS: No abnormal restricted diffusion is identified. The white matter is unremarkable. The ventricular sys tem is normal in appearance. No mass or abnormal enhancement is seen. There is no mass effect or midl ine shift. There is no evidence of acute intraparenchymal hemorrhage. No extra axial fluid collection s are seen. The corpus callosum, pituitary gland, and cerebellar tonsils appear grossly unremarkable. Flow voids of the major intracranial arterial vessels are identified. The imaged portions of the para nasal sinuses, mastoid air cells, and orbits are unremarkable. IMPRESSION: No acute abnormalities. ACT 112: Negative or not required by law. Electronically signed by: Obed Santos M.D. 11/17/2022 7:44 AM
[2022-11-17 07:56] LABS: Basophils # (auto) 0.02 K/uL (0-0.2); Basophils % (auto) 0.5 %; Eosinophils # (auto) 0.05 K/uL (0-0.50); Eosinophils % (auto) 1.3 %; Hemoglobin 15.6 g/dl (14.0-18.0); Immature Granulocytes # (auto) 0.02 K/uL (0.00-0.02); Immature Granulocytes % (auto) 0.5 %; Lymphocytes # (auto) 0.73 K/uL (1.2-3.4); Lymphocytes % (auto) 18.5 %; Mean Corpuscular Hemoglobin 30.5 pg (25.0-34.0); Mean Corpuscular Hgb Conc 35.5 g/dL (32.0-36.0); Mean Corpuscular Volume 86.1 fL (80.0-100.0); Mean Platelet Volume 9.9 fL (9.4-12.4); Monocytes # (auto) 0.42 K/uL (0.24-0.82); Monocytes % (auto) 10.6 %; Neutrophils # (auto) 2.71 K/uL (1.4-6.5); Neutrophils % (auto) 68.6 %; Platelet Count 147 K/uL (130-400); RDW Coefficient of Variation 12.6 % (11.5-14.5); Red Blood Count 5.11 M/uL (4.63-6.08); White Blood Count 3.95 K/ul (4.8-10.8)
[2022-11-17 08:41] LABS: Estimated Average Glucose 123 mg/dl; Hemoglobin A1C 5.9 % (4.5-5.6)
[2022-11-17] MEDS ORDERED: ASPIRIN 81 MG ECTAB PO SCH (09:00)
[2022-11-17] MEDS ORDERED: VALSARTAN/HCTZ 80/12.5MG TAB PO SCH (09:00)
[2022-11-17] MEDS ORDERED: MAGNESIUM OXIDE 400 MG TAB PO SCH (09:00)
[2022-11-17 09:49] LABS: BUN Creatinine Ratio 18.7 (10-20); Calcium 9.2 mg/dl (8.5-10.1); Chol HDL Ratio 4.1 (0-5); Creatinine Clr Calc Pharmacy 117.6 ml/min; Est GFR (African American) 108.8 ml/min; Est GFR (Non-African American) 93.9 ml/min; Potassium 4.4 mmol/L (3.5-5.1)
--- NOTE | 2022-11-17 09:49 | Electrocardiogram Report ---
Test Reason : Blood Pressure : / mmHG Vent. Rate : 082 BPM Atrial Rate : 082 BPM P-R Int : 196 ms QRS Dur : 092 ms QT Int : 376 ms P-R-T Axes : 049 013 022 degrees QTc Int : 439 ms Normal sinus rhythm Normal ECG When compared with ECG of 18-APR-2021 20:16, No significant change was found Confirmed by Huey Valencia ([id number]) on 11/17/2022 9:48:50 AM Referred By: REFERRED SELF Confirmed By:Antwan Valencia
--- NOTE | 2022-11-17 12:56 | Neurology Consultation ---
Date of Consultation November 17, 2022 Assessment & Plan (1) Dysarthria: Plan NEUROLOGY CONSULTATION Assessment & Plan: Impression: Overall presentation not very suggestive of stroke. more likely med side effect and metabolic disorder related perhaps. Recommendations: i do not feel further need for stroke work up. avoid using Xanax. discuss with provider prior to fasting planning. will sign off. ok for discharge. Dr. Jaime Granados MD [facility] Neurology Chief Complaint: speech change History of Present Illness: Pt this morning feeling well and wanting to go home. mri brain negative. pt does feel that his med side effect of taking Xanax for the 3 days in a row and doing fasting for last 4-5 days to loose weight likely contributed. pt now without symptoms. 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 The patient says the last few days, he is fasting to lose his weight and also recently started on alprazolam, took couple of doses, and today around noontime, he had some flashes in the left eye, then he had difficulty speaking, garbled speech for about 20 minutes, that resolved, which prompted him to come to the ER. Currently, symptoms are resolved. Initial workup is mostly unremarkable. Resting comfortably, hemodynamically stable. is in the room. The patient denies any headache. Current vision is okay. No earache, no runny nose, no sore throat, no cough, no difficulty swallowing. No chest pain, no shortness of breath, no nausea, no abdominal pain. Normal bowel and bladder movements. Says he is ambulating fine. Past Medical History: See chart Meds: See chart I personally reviewed all of the medications Social & Family History: See chart Review of Systems: Per initial HPI on admission. Physical Exam: GEN: NAD HEENT: Normocephalic Neuro: Mental status:A & O x 3.No dysarthria or aphasia.No neglect. Fluent speech. No apraxia Cranial Nerves:II-XII intact Motor:Normal bulk and tone,5/5 strength x 4 extremities Coordination:Intact Sensation: Intact Chart reviewed I have spent more than 50% educating patient about potential diagnosis and neurological evaluation and coordinating care with patient's treatment team. Total time spent (including chart review and coordination of care): 80 min (this includes chart review). History of Present Illness Attending Physician: Peyton Dooley MD Allergies Allergy/AdvReac Type Severity Reaction Status Date / Time prednisone AdvReac Intermediate CAN NOT Verified 11/16/22 17:04 TOLERATE,-GETS VERY ANGRY,FEELS AWFUL Home Medications Medication Instructions Recorded Confirmed Type levothyroxine 200 mcg tablet 200 mcg PO DAILY 06/19/20 11/16/22 History alprazolam 0.5 mg tablet 0.5 - 1 mg PO Q6H PRN Anxiety 11/16/22 11/16/22 History cholecalciferol (vitamin D3) 25 0 mcg PO DAILY 11/16/22 11/16/22 History mcg (1,000 unit) capsule (Vitamin D3) magnesium 250 mg tablet 250 mg PO DAILY 11/16/22 11/16/22 History valsartan 80 1 tab PO DAILY 11/16/22 11/16/22 History mg-hydrochlorothiazide 12.5 mg tablet vitamin K2 90 mcg capsule 0 mcg PO DAILY 11/16/22 11/16/22 History Patient History Medical History Degenerative disc disease CERVICAL DISC DISEASE Diabetes type 1, uncontrolled Difficult intubation VIDEO MEDIASTINOSCOPY WITH LYMPH NODE BIOPSY= 07/29/17= GLIDESCOPE #4, ETT 8.0 AT [facility] GERD (gastroesophageal reflux disease) Hypothyroidism Metastatic melanoma HX OF RIGHT LOWER LOBECTOMY Mild non proliferative diabetic retinopathy Obesity Sleep apnea CPAP Surgical History History of cholecystectomy History of colonoscopy History of esophagogastroduodenoscopy (EGD) History of lobectomy of lung RIGHT LOWER LOBE 2/2 METASTATIC MELANOMA History of lung surgery VIDEO MEDIASTINOSCOPY WITH LYMPH NODE BIOPSY History of tonsillectomy Social History Smoking Status: Never smoker Second Hand Exposure: No; Hx Alcohol Use: No Hx Substance Use: No Preferred Language: [place] Communication Ability: Effective Visual Impairment: No Limitations [employer] Supervisor Required: No Beliefs That Will Affect Care: None Current Living Situation: Spouse Feels Safe at Home: Yes Assistive Devices: CPAP and Glasses Results & Data ([facility]) Vital Signs (Past 12 Hours) Vital Signs Temp Pulse Pulse Resp BP Pulse Ox O2 Del Method 11/17/22 11:10 36.3 C L 85 18 140/94 95 Room Air 11/17/22 06:01 72 11/17/22 06:00 36.4 C L 70 16 157/99 H 97 Room Air 11/17/22 02:49 36.7 C 61 20 143/93 H 98 Room Air
--- NOTE | 2022-11-17 13:06 | Hospitalist Progress Note ---
Date of Service November 17, 2022 Assessment & Plan (1) Stroke-like symptoms: Plan: Strokelike symptoms including difficulty speaking for about 20 minutes prior to admission Has been fasting and also on Xanax for the last 2 days All symptoms resolved Imaging studies came out to be negative for any stroke or any other significant lesion Echo of the heart showed LV size is normal with EF 55 to 60%, RV size is normal and no evidence of interatrial septum Appreciate neurology input and recommendation Will discharge home this afternoon (2) Hypertension: Plan: Blood pressure remains controlled Will continue current medications (3) Sleep apnea: Plan: History of sleep apnea Continue to use CPAP at nighttime (4) Hypothyroidism: Plan: History of Graves' disease and now hypothyroidism Continue supplement (5) Diabetes mellitus type 2, uncontrolled: Plan: Continue current diabetic medication Consult your primary care provider for any fasting program Plan Will be discharged home this afternoon Admission and Anticipated Discharge Date Admission Date: November 16, 2022 Subjective 11/17/2022 The patient was seen and examined in telemetry unit He was admitted with strokelike symptoms which have resolved completely He denies any new symptoms today He is imaging studies came out to be negative Review of Systems Review of Systems: All systems reviewed and are unremarkable except as noted below Physical Exam Physical Exam: Lying in bed comfortably Constitutional: well developed, well nourished and + obese; not ill appearing Eyes: PERRL, conjunctivae normal, anicteric sclerae ENMT: external ear and nose normal, oropharynx normal Neck: trachea midline, no thyromegaly Respiratory: no respiratory distress Auscultation: lungs clear to auscultation bilaterally Cardiovascular: Rate/Rhythm: regular rate and regular rhythm; not tachycardic Heart Sounds: normal S1 and normal S2; no murmur Extremities: no edema Gastrointestinal (Abdomen): Inspection/Auscultation: normal bowel sounds; abdomen not distended Percussion/Palpation: abdomen soft; abdomen nontender Musculoskeletal: No acute arthritis in any joint Neurologic: Alert, awake and oriented x3. No focal sensory or no motor deficit after she Psychiatric: A+Ox3, euthymic affect Lymphatic: no cervical or axillary lymphadenopathy Results & Data Results & Data ([facility]) Vital Signs (Past 12 Hours) Vital Signs Temp Pulse Pulse Resp BP Pulse Ox O2 Del Method 11/17/22 11:10 36.3 C L 85 18 140/94 95 Room Air 11/17/22 06:01 72 11/17/22 06:00 36.4 C L 70 16 157/99 H 97 Room Air 11/17/22 02:49 36.7 C 61 20 143/93 H 98 Room Air Laboratory Results Short CBC 11/16/22 11/17/22 Range/Units 14:10 07:01 WBC 4.72 L 3.95 L (4.8-10.8) K/ul Hgb 16.6 15.6 (14.0-18.0) g/dl Hct 47.1 44.0 (40.1-51.0) % Plt Count 151 147 (130-400) K/uL BMP 11/16/22 11/17/22 14:10 07:01 Sodium 134 L 136 Potassium 4.2 4.4 Chloride 99 102 Carbon Dioxide 25 25 BUN 21 17 Creatinine 1.15 0.91 Glucose 103 H 107 H Calcium 9.6 9.2 Liver Function 11/16/22 Range/Units 14:10 Total Bilirubin 0.6 (0.2-1.0) mg/dl AST 17 (13-39) U/L ALT 17 (7-52) U/L Alkaline Phosphatase 66 (34-104) U/L Albumin 4.2 (3.4-5.0) gm/dl Medications Administered Current Inpatient Medications Acetaminophen (Acetaminophen 325 Mg Tab) 650 mg PO Q4H PRN PRN Reason: Pain or Fever Stop: 12/16/22 23:44 Alprazolam (Alprazolam 0.5 Mg Tablet) 0.5 mg PO Q6H PRN PRN Reason: Anxiety Stop: 12/16/22 23:44 Aspirin (Aspirin 81 Mg Ectab) [facility] Stop: 12/17/22 08:59 Last Admin: 11/17/22 09:26 Dose: 81 mg Levothyroxine Sodium (Levothyroxine Sodium 200 Mcg Tablet) 200 mcg PO DAILYBB [facility] Stop: 12/17/22 06:29 Last Admin: 11/17/22 05:48 Dose: 200 mcg Magnesium Oxide (Magnesium Oxide 400 Mg Tab) 400 mg PO DAILY [facility] Stop: 12/17/22 08:59 Last Admin: 11/17/22 09:25 Dose: 400 mg Miscellaneous Information (Pharmacist Discharge Med Rec Consult) 1 each N/A UD PRN PRN Reason: Consult Stop: 12/16/22 23:44 Nitroglycerin (Nitroglycerin Sl 0.4 Mg/Tab Tab) 0.4 mg SL UD PRN PRN Reason: Chest Pain Stop: 12/16/22 23:44 Polyethylene Glycol (Polyethylene (Miralax) 17 Gm Pack) 17 gm PO DAILY PRN PRN Reason: Constipation Stop: 12/16/22 23:44 Valsartan (Valsartan/Hctz 80/12.5mg Tab) 1 tab PO DAILY [facility] Stop: 12/17/22 08:59 Last Admin: 11/17/22 09:27 Dose: Not Given
[2022-11-17] MEDS ORDERED: STROKE PATIENT DISCHARGE STA (13:10)
--- NOTE | 2022-11-18 07:35 | Discharge Summary ---
Date of Service November 17, 2022 Admission HPI Per Admitting Provider DICTATED BY:Harry Olmos MD DATE OF ADMISSION: 11/16/2022. CHIEF COMPLAINT: Stroke-like symptoms. 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 The patient says the last few days, he is fasting to lose his weight and also recently started on alprazolam, took couple of doses, and today around noontime, he had some flashes in the left eye, then he had difficulty speaking, garbled speech for about 20 minutes, that resolved, which prompted him to come to the ER. Currently, symptoms are resolved. Initial workup is mostly unremarkable. Resting comfortably, hemodynamically stable. is in the room. The patient denies any headache. Current vision is okay. No earache, no runny nose, no sore throat, no cough, no difficulty swallowing. No chest pain, no shortness of breath, no nausea, no abdominal pain. Normal bowel and bladder movements. Says he is ambulating fine. Admission Exam Per Admitting Provider GENERAL: The patient is of alert and oriented. The patient is obese, not in acute distress. VITAL SIGNS: Temperature 37.2, pulse 83, respiratory rate 19, blood pressure 14 9/101, oxygen 97% on room air. HEENT: Pupils equal, round and reactive to light. Oral mucosa moist. NECK: No JVD, no neck masses. CARDIOVASCULAR: S1 and S2 heard. Regular rate and rhythm. No murmur, no gallop. RESPIRATORY SYSTEM: Normal AP diameter. No accessory muscle use. No wheezing, no crackles. ABDOMEN: Soft, bowel sounds present, nontender, no distention. CENTRAL NERVOUS SYSTEM: Alert and oriented. Speech is clear. No facial droop. Can raise his eyebrows, can smile. No pronator drift. Coordination of movements normal. Power 5/5 in all extremities. Sensation is intact. EXTREMITIES: No edema, no erythema. Principal Diagnosis Strokelike symptoms-resolved and no stroke Discharge Exam Lying in bed comfortably Constitutional well developed, well nourished and + obese; not ill appearing Eyes PERRL, conjunctivae normal, anicteric sclerae ENMT external ear and nose normal, oropharynx normal Neck trachea midline, no thyromegaly Respiratory no respiratory distress Auscultation: lungs clear to auscultation bilaterally Cardiovascular Rate/Rhythm: regular rate and regular rhythm; not tachycardic Heart Sounds: normal S1 and normal S2; no murmur Extremities: no edema Gastrointestinal (Abdomen) Inspection/Auscultation: normal bowel sounds; abdomen not distended Percussion/Palpation: abdomen soft; abdomen nontender Psychiatric A+Ox3, euthymic affect Lymphatic no cervical or axillary lymphadenopathy Discharge Data Allergies Allergy/AdvReac Type Severity Reaction Status Date / Time prednisone AdvReac Intermediate CAN NOT Verified 11/16/22 17:04 TOLERATE,-GETS VERY ANGRY,FEELS AWFUL Consultations 11/16/22 18:17 ED Decision to Admit Stat 11/17/22 08:00 Consult Neurology Routine Ordered Studies 11/16/22 13:54 CT angio head w con Stat CT angio neck with con Stat CT head/brain wo con Stat 11/17/22 00:12 MR brain wo/w con Urgent Hospital Course (1) Stroke-like symptoms: Strokelike symptoms including difficulty speaking for about 20 minutes prior to admission Has been fasting and also on Xanax for the last 2 days All symptoms resolved Imaging studies came out to be negative for any stroke or any other significant lesion Echo of the heart showed LV size is normal with EF 55 to 60%, RV size is normal and no evidence of interatrial septum Appreciate neurology input and recommendation Will discharge home this afternoon (2) Hypertension: Blood pressure remains controlled Will continue current medications (3) Sleep apnea: History of sleep apnea Continue to use CPAP at nighttime (4) Hypothyroidism: History of Graves' disease and now hypothyroidism Continue supplement (5) Diabetes mellitus type 2, uncontrolled: Continue current diabetic medication Consult your primary care provider for any fasting program Plan Will be discharged home this afternoon Total Time Total Time Spent Total Time Spent (In Minutes): 35 minutes Discharge Plan Discharge Items Patient Disposition: Home - Self-Care Reason For Visit: DOUBLE VISION, SLURRED SPEECH, COORDINATION Discharge Diagnosis: Strokelike symptoms-resolved and no stroke Condition on Discharge: Good Activity: Resume your previous activity Non-emergency contact: Primary Care Provider Call non-emergency contact if: you have any medication questions and your symptoms worsen Follow-up/Referrals: Fidel Montelongo, [Primary Care Provider] - Diet: Carb Consistent or DM2 Addtl Attending Provider Instructions: Please take precautions to avoid fall No change in medication Please make an appointment with your primary care physician within 7 days Try to avoid using any Xanax Pending Studies at Discharge: No Stand-Alone Forms: My [employer], Smoking Cessation Medications and DC Order Prescriptions: New aspirin 81 mg Tablet,Delayed Release (Dr/Ec) 81 mg PO QAM Qty: 30 0RF atorvastatin [Lipitor] 20 mg tablet 20 mg PO DAILY Qty: 30 0RF Continued levothyroxine 200 mcg tablet 200 mcg PO DAILY Dose Instruction: take 1 tab daily with a 25mcg tablet PO DAILY; valsartan-hydrochlorothiazide 80-12.5 mg tablet 1 tab PO DAILY alprazolam 0.5 mg tablet 0.5 - 1 mg PO Q6H PRN (Reason: Anxiety) magnesium 250 mg Tablet 250 mg PO DAILY cholecalciferol (vitamin D3) [Vitamin D3] 25 mcg (1,000 unit) Capsule 0 mcg PO DAILY Rx Instructions: PT UNSURE OF STRENGTH vitamin K2 90 mcg Capsule 0 mcg PO DAILY Rx Instructions: PT UNSURE OF STRENGTH Discharge Orders: Discharge Order (Routine); Ordered 11/17/22 Ordered By: Peyton Dooley Admission Data Admit Date/Time: 11/16/22 20:16 Attending Provider: Peyton Dooley Admit Provider: Harry Olmos Primary Care Provider: Fidel Montelongo Other Providers: Harry Olmos ; Albaro Zapien ; Rene Davila ; Italia Calderon ; Rosmery Kaplan ; Jaime Meyer ; Rosmery Greene ; Goyo Givens ; Joelle Killian ; Tyler Johnson ; Chula Pantoja ; Zeina Mistry ; Jaime Granados ; Ac Zurita ; Joselo Lee Other Interventions: Discharge Summary Assessment (RN) Last Done: 11/17/22 13:15
== END 2022-11-17 13:40 | disposition home or self-care (01) ==
LOC: ED 13:27 → 2S 20:16 → INTOOBSV 20:16 → SUATTDRO 20:16 → 2S 11-17 00:02
DX: G47.30 Sleep apnea, unspecified; Z88.8 Allergy status to other drugs, medicaments and biological substances; R29.818 Other symptoms and signs involving the nervous system; R47.02 Dysphasia; Z79.899 Other long term (current) drug therapy; I66.9 Occlusion and stenosis of unspecified cerebral artery; E11.9 Type 2 diabetes mellitus without complications; I10 Essential (primary) hypertension; E03.9 Hypothyroidism, unspecified